=== PATIENT | male | born 1965 | race Caucasian/White ===

== ENCOUNTER 2021-12-24 08:24 | Inpatient (IN) | payer OTHER, MEDICAID ==
[~2021-12-24] VITALS: Ht 170.2 cm; Wt 49.0 kg
[2021-12-24 08:24] VITALS: BP_SYST 139
[~2021-12-24 08:24] MED LIST: ACET325T PO; ALBMDI INH; CEPH-548 PO; HYDR-3917 PO; LACT10SO6 PO; ONDA4TAB55 PO; POLY17PO4 PO; ROBAC PO; SENN8.6T19 PO; TRAM50TA2 PO; TRAZ-250 PO
[2021-12-24] MEDS ORDERED: ONDANSETRON HCL 4 MG/2 ML VIAL IVP ONE (09:00)
[2021-12-24] MEDS ORDERED: PANTOPRAZOLE SODIUM 80 MG in NS 100 ML IV ONE (09:00)
[2021-12-24] MEDS ORDERED: PANTOPRAZOLE SODIUM 40 MG/VIAL (PROTONIX) ONE (09:29)
[2021-12-24] MEDS ORDERED: ONDANSETRON HCL 4 MG/2 ML VIAL ONE (09:29)
[2021-12-24 09:34] LABS: BASOPHILS # (AUTO) 0.1 K/uL (0.0-0.2); BASOPHILS % (AUTO) 0.6 % (0.0-2.0); EOSINOPHILS % (AUTO) 0.5 % (0.0-4.0); HEMATOCRIT 37.7 % (36-54); HEMOGLOBIN 11.9 g/dL (14.0-18.0); LYMPHOCYTES # (AUTO) 0.7 K/uL (1.0-5.5); LYMPHOCYTES % (AUTO) 8.3 % (20.5-51.5); MEAN CORPUSCULAR HEMOGLOBIN 27 pg (27-31); MEAN CORPUSCULAR HGB CONC 32 % (32-36); MEAN CORPUSCULAR VOLUME 84 fL (79.0-98.0); MONOCYTES # (AUTO) 0.4 K/uL (0.0-1.0); MONOCYTES % (AUTO) 4.8 % (1.7-9.3); NEUTROPHILS # (AUTO) 6.9 K/uL (1.8-7.7); NEUTROPHILS % (AUTO) 85.8 % (40.0-70.0); PLATELET COUNT (AUTO) 350 K/uL (130-430); RED BLOOD CELL COUNT(AUTO) 4.49 MIL/uL (4.2-6.2); RED CELL DISTRIBUTION WIDTH 17.1 % (9.0-15.0)
[2021-12-24 09:51] LABS: CALCIUM 8.6 mg/dL (8.4-11.0); CREATININE 0.94 mg/dL (0.55-1.30); POTASSIUM 4.1 mmol/L (3.5-5.1)
[2021-12-24 09:54] LABS: PROTHROMBIN TIME 10.5 SECS (9.5-12.5)
[2021-12-24 09:55] LABS: ALBUMIN 3.2 g/dL (3.4-4.8); TOTAL BILIRUBIN 0.4 mg/dL (0.0-1.0)
[2021-12-24 09:59] LABS: BILIRUBIN,URINE NEGATIVE (NEGATIVE); BLOOD, URINE 3+ (NEGATIVE); CLARITY/URINE TURBID (CLEAR); COLOR,URINE YELLOW (YELLOW); GLUCOSE,URINE NEGATIVE (NEGATIVE); KETONES,URINE NEGATIVE (NEGATIVE); LEUKOCYTE ESTERASE ,URINE 3+ (NEGATIVE); NITRITE, URINE NEGATIVE (NEGATIVE); PH,URINE 6.5 (5.0-8.0); PROTEIN URINE 2+ (NEGATIVE); UROBILINOGEN,URINE 0.2 (0.2-1.0)
[2021-12-24 10:17] LABS: BACTERIA,URINE MODERATE /HPF (None Seen); WBC,URINE >100 /HPF (0-3)
[2021-12-24] MEDS ORDERED: PIPERACILLIN/TAZO 3.375 GM in NS 50 ML IV ONE (10:45)
[2021-12-24] MEDS ORDERED: DOCU-144 PO (11:15)
[2021-12-24] MEDS ORDERED: BISA10SU61 RC (11:15)
[2021-12-24] MEDS ORDERED: FLEETMO RC (11:15)
[2021-12-24] MEDS ORDERED: METO25TA6 PO (11:15)
[2021-12-24] MEDS ORDERED: BISACODYL 10 MG/SUPPOSITORY RC ONE (13:45)
[2021-12-24 14:00] VITALS: BP_SYST 125
[2021-12-24] MEDS: D5NS 1,000 ML IV SCH (15:01)
[2021-12-24 15:12] VITALS: BP_SYST 125
[2021-12-24 16:00] VITALS: BP_SYST 128
[2021-12-24 20:00] VITALS: BP_SYST 105
[2021-12-24] MEDS: PANTOPRAZOLE SODIUM 40 MG/VIAL (PROTONIX) IVP SCH (20:43)
[2021-12-24] MEDS ORDERED: PANTOPRAZOLE SODIUM 40 MG in NS 100 ML IV SCH (21:00)
[2021-12-24] MEDS ORDERED: cefTRIAXone 1 GM IVPB PREMIX 50 ML IV ONE (21:52)
[2021-12-24] MEDS: cefTRIAXone 1 GM in D5W 50 ML IV SCH (22:12)
[2021-12-24] MEDS: MORPHINE 2 MG/ML INJ. SYRINGE IVP PRN (22:14)
[2021-12-25] VITALS: BP_SYST 133
[2021-12-25] MEDS: D5NS 1,000 ML IV SCH ×3 (02:30→23:45)
[2021-12-25] MEDS: MORPHINE 2 MG/ML INJ. SYRINGE IVP PRN ×3 (03:04→20:38)
[2021-12-25 07:23] LABS: CALCIUM 8.5 mg/dL (8.4-11.0); CREATININE 0.92 mg/dL (0.55-1.30); POTASSIUM 3.8 mmol/L (3.5-5.1)
[2021-12-25 07:28] LABS: BASOPHILS # (AUTO) 0.1 K/uL (0.0-0.2); BASOPHILS % (AUTO) 1.1 % (0.0-2.0); EOSINOPHILS # (AUTO) 0.3 K/uL (0.0-0.4); EOSINOPHILS % (AUTO) 4.8 % (0.0-4.0); HEMATOCRIT 32.2 % (36-54); HEMOGLOBIN 10.2 g/dL (14.0-18.0); LYMPHOCYTES % (AUTO) 14.9 % (20.5-51.5); MEAN CORPUSCULAR HEMOGLOBIN 27 pg (27-31); MEAN CORPUSCULAR HGB CONC 32 % (32-36); MEAN CORPUSCULAR VOLUME 84 fL (79.0-98.0); MONOCYTES # (AUTO) 0.5 K/uL (0.0-1.0); MONOCYTES % (AUTO) 7.8 % (1.7-9.3); NEUTROPHILS # (AUTO) 4.6 K/uL (1.8-7.7); NEUTROPHILS % (AUTO) 71.4 % (40.0-70.0); PLATELET COUNT (AUTO) 319 K/uL (130-430); RED BLOOD CELL COUNT(AUTO) 3.83 MIL/uL (4.2-6.2); RED CELL DISTRIBUTION WIDTH 17.2 % (9.0-15.0); WHITE BLOOD COUNT (AUTO) 6.4 K/uL (4.8-10.8)
[2021-12-25 08:16] VITALS: BP_SYST 140
[2021-12-25] MEDS: PANTOPRAZOLE SODIUM 40 MG/VIAL (PROTONIX) IVP SCH ×2 (08:37→20:28)
[2021-12-25] MEDS: METOPROLOL TARTRATE 25 MG TABLET PO SCH ×2 (08:38→20:29)
[2021-12-25] MEDS ORDERED: POLYETHYLENE GLYCOL 3350, 17 GM/ POWD.PACK PO SCH (09:00)
[2021-12-25] MEDS ORDERED: MAGNESIUM CITRATE 300 ML ORAL SOLUTION PO ONE (10:15)
[2021-12-25 12:54] VITALS: BP_SYST 124
[2021-12-25] MEDS: POLYETHYLENE GLYCOL 3350, 17 GM/ POWD.PACK PO SCH ×2 (14:01→20:29)
[2021-12-25 17:25] VITALS: BP_SYST 126
[2021-12-25] MEDS: SENNOSIDES/DOCUSATE SODIUM 1 TAB TABLET(SENOKOT-S) PO SCH (20:29)
[2021-12-25] MEDS: cefTRIAXone 1 GM in D5W 50 ML IV SCH (21:16)
[2021-12-26 00:36] VITALS: BP_SYST 107
[2021-12-26] MEDS: POLYETHYLENE GLYCOL 3350, 17 GM/ POWD.PACK PO SCH ×4 (05:28→21:00)
[2021-12-26 07:48] VITALS: BP_SYST 126
[2021-12-26 08:22] LABS: BASOPHILS # (AUTO) 0.1 K/uL (0.0-0.2); BASOPHILS % (AUTO) 1.2 % (0.0-2.0); EOSINOPHILS # (AUTO) 0.4 K/uL (0.0-0.4); EOSINOPHILS % (AUTO) 5.2 % (0.0-4.0); HEMATOCRIT 35.1 % (36-54); HEMOGLOBIN 10.9 g/dL (14.0-18.0); LYMPHOCYTES # (AUTO) 1.1 K/uL (1.0-5.5); LYMPHOCYTES % (AUTO) 14.6 % (20.5-51.5); MEAN CORPUSCULAR HEMOGLOBIN 27 pg (27-31); MEAN CORPUSCULAR HGB CONC 31 % (32-36); MEAN CORPUSCULAR VOLUME 85 fL (79.0-98.0); MONOCYTES # (AUTO) 0.4 K/uL (0.0-1.0); NEUTROPHILS # (AUTO) 5.3 K/uL (1.8-7.7); PLATELET COUNT (AUTO) 354 K/uL (130-430); RED BLOOD CELL COUNT(AUTO) 4.12 MIL/uL (4.2-6.2); WHITE BLOOD COUNT (AUTO) 7.3 K/uL (4.8-10.8)
[2021-12-26 08:43] LABS: CALCIUM 8.8 mg/dL (8.4-11.0); CREATININE 1.01 mg/dL (0.55-1.30); POTASSIUM 4.1 mmol/L (3.5-5.1)
[2021-12-26] MEDS: PANTOPRAZOLE SODIUM 40 MG/VIAL (PROTONIX) IVP SCH ×2 (09:00→21:00)
[2021-12-26] MEDS: traMADol HCL HCL 50 MG TABLET (ULTRAM) PO PRN ×3 (09:18→21:45)
[2021-12-26] MEDS: METOPROLOL TARTRATE 25 MG TABLET PO SCH ×2 (09:19→21:45)
[2021-12-26 12:00] VITALS: BP_SYST 116
[2021-12-26] MEDS: MAGNESIUM CITRATE 300 ML ORAL SOLUTION PO SCH (14:15)
[2021-12-26 16:00] VITALS: BP_SYST 120
[2021-12-26] MEDS ORDERED: MENTHOL/ZINC OXIDE 113 GM OINT. TP PRN (19:15)
[2021-12-26] MEDS ORDERED: ERTAPENEM SODIUM 1 GM in NS 50 ML IV SCH (21:00)
[2021-12-26] MEDS: BISACODYL 5 MG TABLET.DR (DULCOLAX) PO SCH (21:00)
[2021-12-26] MEDS: SENNOSIDES/DOCUSATE SODIUM 1 TAB TABLET(SENOKOT-S) PO SCH (21:00)
[2021-12-27 00:29] VITALS: BP_SYST 122
[2021-12-27] MEDS: POLYETHYLENE GLYCOL 3350, 17 GM/ POWD.PACK PO SCH ×4 (03:00→21:19)
[2021-12-27 04:00] VITALS: BP_SYST 132
[2021-12-27] MEDS: PANTOPRAZOLE SODIUM 40 MG/VIAL (PROTONIX) IVP SCH ×2 (09:00→21:19)
[2021-12-27] MEDS: MAGNESIUM CITRATE 300 ML ORAL SOLUTION PO SCH (09:00)
[2021-12-27] MEDS: METOPROLOL TARTRATE 25 MG TABLET PO SCH ×2 (09:00→21:20)
[2021-12-27] MEDS: BISACODYL 5 MG TABLET.DR (DULCOLAX) PO SCH ×2 (09:00→21:20)
[2021-12-27] MEDS: ERTAPENEM SODIUM 1 GM in NS 50 ML IV SCH (11:03)
[2021-12-27 12:02] VITALS: BP_SYST 132
[2021-12-27 13:13] VITALS: BP_SYST 134
[2021-12-27 16:09] VITALS: BP_SYST 103
[2021-12-27 20:00] VITALS: BP_SYST 122
[2021-12-27] MEDS: SENNOSIDES/DOCUSATE SODIUM 1 TAB TABLET(SENOKOT-S) PO SCH (21:19)
[2021-12-28 02:04] VITALS: BP_SYST 99
[2021-12-28] MEDS: D5NS 1,000 ML IV SCH ×2 (02:30→14:28)
[2021-12-28] MEDS: MAGNESIUM CITRATE 300 ML ORAL SOLUTION PO SCH (09:00)
[2021-12-28] MEDS: POLYETHYLENE GLYCOL 3350, 17 GM/ POWD.PACK PO SCH ×2 (09:00→22:08)
[2021-12-28] MEDS: BISACODYL 5 MG TABLET.DR (DULCOLAX) PO SCH ×2 (09:00→22:09)
[2021-12-28] MEDS: PANTOPRAZOLE SODIUM 40 MG/VIAL (PROTONIX) IVP SCH ×2 (10:27→22:09)
[2021-12-28] MEDS: METOPROLOL TARTRATE 25 MG TABLET PO SCH ×2 (10:29→22:10)
[2021-12-28] MEDS: ERTAPENEM SODIUM 1 GM in NS 50 ML IV SCH (11:00)
[2021-12-28] MEDS ORDERED: GOLYTELY / COLYTE SOLUTION 4 LITERS PO ONE (14:00)
[2021-12-28] MEDS: MORPHINE 2 MG/ML INJ. SYRINGE IVP PRN ×2 (14:26→21:02)
[2021-12-28 16:23] VITALS: BP_SYST 134
[2021-12-28 20:30] VITALS: BP_SYST 119
[2021-12-28] MEDS: SENNOSIDES/DOCUSATE SODIUM 1 TAB TABLET(SENOKOT-S) PO SCH (22:09)
[2021-12-29 02:11] VITALS: BP_SYST 129
[2021-12-29] MEDS: D5NS 1,000 ML IV SCH (02:39)
[2021-12-29] MEDS: PANTOPRAZOLE SODIUM 40 MG/VIAL (PROTONIX) IVP SCH (09:43)
[2021-12-29] MEDS: BISACODYL 5 MG TABLET.DR (DULCOLAX) PO SCH (09:44)
[2021-12-29] MEDS: traMADol HCL HCL 50 MG TABLET (ULTRAM) PO PRN (09:44)
[2021-12-29] MEDS: POLYETHYLENE GLYCOL 3350, 17 GM/ POWD.PACK PO SCH (09:44)
[2021-12-29] MEDS: MAGNESIUM CITRATE 300 ML ORAL SOLUTION PO SCH (09:45)
[2021-12-29] MEDS: METOPROLOL TARTRATE 25 MG TABLET PO SCH (09:49)
[2021-12-29 11:02] VITALS: BP_SYST 119
[2021-12-29 11:23] VITALS: BP_SYST 119
[2021-12-29] MEDS: ERTAPENEM SODIUM 1 GM in NS 50 ML IV SCH (12:26)
[2021-12-29 12:40] VITALS: BP_SYST 125
== END 2021-12-29 15:15 | DRG 377 ==
LOC: SED 08:24 → STU 10:53 → SMU 12-26 16:09
PROVIDERS: ADMIT General Practice; ATTEND General Practice
DX: K92.2 Gastrointestinal hemorrhage, unspecified (principal); R53.2 Functional quadriplegia; N39.0 Urinary tract infection, site not specified; E44.1 Mild protein-calorie malnutrition; Z68.1 Body mass index [BMI] 19.9 or less, adult; Z16.12 Extended spectrum beta lactamase (ESBL) resistance; E86.0 Dehydration; Z20.822 Contact with and (suspected) exposure to COVID-19; B96.20 Unspecified Escherichia coli [E. coli] as the cause of diseases classified elsewhere; J45.909 Unspecified asthma, uncomplicated; K56.41 Fecal impaction; G80.9 Cerebral palsy, unspecified; F79 Unspecified intellectual disabilities; D64.9 Anemia, unspecified; Z88.1 Allergy status to other antibiotic agents; Z88.8 Allergy status to other drugs, medicaments and biological substances; Z79.899 Other long term (current) drug therapy; Z90.49 Acquired absence of other specified parts of digestive tract; Z87.440 Personal history of urinary (tract) infections
CPT/HCPCS: 36415; 71045; 74018; 80048; 80053; 81000; 83690; 84443; 85025; 85610-TC; 85730-TC; 86886; 86900; 86901; 87081; 87086; 93005; 96365; 96367; 96375; 99285; C9113; G0378; J0696; J1335; J2270; J2405; J2543; J7060

== ENCOUNTER 2022-01-19 18:30 | Inpatient (IN) | payer OTHER, MEDICAID ==
[2022-01-18] MEDS: D5/0.45 NS 1,000 ML IV SCH (23:45)
[~2022-01-19] VITALS: Ht 170.2 cm; Wt 47.7 kg
[~2022-01-19 18:30] MED LIST changes: +BISA10SU61 RC; -CEPH-548 PO; +DOCU-144 PO; +FLEETMO RC; -HYDR-3917 PO; +METO25TA6 PO; -ROBAC PO
[2022-01-19 18:34] VITALS: BP_SYST 124
--- NOTE | 2022-01-19 18:37 | NUR ---
Patient to ER bed 5 to gown for evaluation. Side rails up. Report given to Navarro GUAJARDO.
--- NOTE | 2022-01-19 19:02 | NUR ---
Patient is A&Ox4 BIB ambulance c/o intermittent nausea, back pain and states he has a leaking urostomy tube.
--- NOTE | 2022-01-19 19:06 | NUR ---
LAB AT THE BEDSIDE FOR BLOOD DRAW
--- NOTE | 2022-01-19 19:20 | NUR ---
Report given to BENNETT Alexander. Patient resting in bed.
[2022-01-19 19:21] LABS: BASOPHILS # (AUTO) 0.1 K/uL (0.0-0.2); BASOPHILS % (AUTO) 0.8 % (0.0-2.0); EOSINOPHILS # (AUTO) 0.5 K/uL (0.0-0.4); EOSINOPHILS % (AUTO) 5.7 % (0.0-4.0); HEMATOCRIT 34.8 % (36-54); HEMOGLOBIN 11.1 g/dL (14.0-18.0); LYMPHOCYTES # (AUTO) 0.9 K/uL (1.0-5.5); LYMPHOCYTES % (AUTO) 11.3 % (20.5-51.5); MEAN CORPUSCULAR HEMOGLOBIN 26 pg (27-31); MEAN CORPUSCULAR HGB CONC 32 % (32-36); MEAN CORPUSCULAR VOLUME 81 fL (79.0-98.0); MONOCYTES # (AUTO) 0.7 K/uL (0.0-1.0); MONOCYTES % (AUTO) 7.9 % (1.7-9.3); NEUTROPHILS # (AUTO) 6.3 K/uL (1.8-7.7); NEUTROPHILS % (AUTO) 74.3 % (40.0-70.0); PLATELET COUNT (AUTO) 382 K/uL (130-430); RED BLOOD CELL COUNT(AUTO) 4.31 MIL/uL (4.2-6.2); RED CELL DISTRIBUTION WIDTH 18.2 % (9.0-15.0); WHITE BLOOD COUNT (AUTO) 8.4 K/uL (4.8-10.8)
--- NOTE | 2022-01-19 19:59 | NUR ---
DR PANIAGUA IN ROOM FOR EXAM.
[2022-01-19 20:06] LABS: BILIRUBIN,URINE NEGATIVE (NEGATIVE); BLOOD, URINE 3+ (NEGATIVE); COLOR,URINE YELLOW (YELLOW); GLUCOSE,URINE NEGATIVE (NEGATIVE); KETONES,URINE NEGATIVE (NEGATIVE); LEUKOCYTE ESTERASE ,URINE 3+ (NEGATIVE); NITRITE, URINE POSITIVE (NEGATIVE); PH,URINE 7.5 (5.0-8.0); PROTEIN URINE 2+ (NEGATIVE); UROBILINOGEN,URINE 0.2 (0.2-1.0)
[2022-01-19 20:10] LABS: CLARITY/URINE CLOUDY (CLEAR)
[2022-01-19 20:26] LABS: BACTERIA,URINE MODERATE /HPF (None Seen); RBC,URINE 20-50 /HPF (0-3); WBC,URINE >100 /HPF (0-3)
[2022-01-19 20:27] LABS: MUCUS,URINE 1+ /LPF (None Seen)
[2022-01-19 20:55] LABS: POTASSIUM 4.3 mmol/L (3.5-5.1)
[2022-01-19 20:56] LABS: CALCIUM 8.2 mg/dL (8.4-11.0); CREATININE 1.54 mg/dL (0.55-1.30)
[2022-01-19 20:58] LABS: ALBUMIN 2.9 g/dL (3.4-4.8)
--- NOTE | 2022-01-19 21:01 | NUR ---
PT WITH EYES CLOSED, IN NAD. RESP EVEN AND UNLABORED, SFATEY PRECAUTIONS IN PLACE, WILL CONT TO MONITOR.
[2022-01-19 21:09] LABS: TOTAL BILIRUBIN 0.1 mg/dL (0.0-1.0)
[2022-01-19] MEDS ORDERED: PANTOPRAZOLE SODIUM 40 MG/VIAL (PROTONIX) IVP ONE (21:45)
[2022-01-19] MEDS ORDERED: PIPERACILLIN/TAZO 3.375 GM in NS 50 ML IV ONE (21:45)
[2022-01-19] MEDS ORDERED: PIPERACILLIN/TAZOBACTAM 3.375 GM/VIAL (ZOSYN) IV ONE ×2 (21:55→21:56)
--- NOTE | 2022-01-19 22:05 | NUR ---
Admit bed requested Patient will be admitted to care of . Admitted to TELE unit. Diagnosis RANAL FAILURE,NAUSEA,VOMITING Inpatient (Yes or No) YES Observation (Yes or No) NO Orientation concerns or request close to nursing station (Yes or No) YES Covid Status PENDING On vent or bipap NO Isolation requirements NO Needs a sitter NO From Home (Yes or if No enter name of facility) [facility] Requires Dialysis (Yes or No) NO Med Rec Completed (Yes of No) PENDING
[2022-01-19] MEDS ORDERED: NA P133E41 RC (22:29)
[2022-01-19] MEDS ORDERED: BACL10TA PO (22:29)
[2022-01-19] MEDS ORDERED: HYDR-3917 PO (22:29)
--- NOTE | 2022-01-19 22:41 | NUR ---
Patient will be admitted to care of DR JEROME. Admitted to unit. Will go to room . Belongings list completed. Complete and up to date summary report printed. SBAR report to be given at bedside with opportunity for questions.
--- NOTE | 2022-01-19 22:57 | NUR ---
ADMIT NOTE Received pt from ER to with a diagnosis of renal failure, nausea and vomiting. Received SBAR report from Cora. Admission process initiated. patient oriented to pain management, safety and call light-teach back done.
[2022-01-19 23:02] VITALS: BP_SYST 102
[2022-01-19] MEDS: D5/0.45 NS 1,000 ML IV SCH (23:24)
--- NOTE | 2022-01-20 07:20 | NUR ---
Dr. Randolph Martinez, Midline Informed Dr. Martinez, patient is a hardstick, unstable start IV and had a midline on prior visit. Received an order for Midline placement, DUYEN
[2022-01-20 08:00] VITALS: BP_SYST 119
[2022-01-20] MEDS: D5/0.45 NS 1,000 ML IV SCH ×2 (08:00→23:45)
--- NOTE | 2022-01-20 08:00 | NUR ---
OPENING NOTE Patient resting in bed, AxO x4. No sign of distress, patient complaining of abdominal pain 4/10. Patient does not have IV access at this time, midline order placed. Patient is currently NPO. Suprapubic catheter and nephrostomy tubes are patent and draining to gravity. All needs met at this time and safety checks made. Will continue to monitor.
--- NOTE | 2022-01-20 09:50 | NUR ---
PATIENT LEFT FOR PROCEDURE Patient left with transport for enteroscopy
[2022-01-20] MEDS ORDERED: MIDAZOLAM HCL 5 MG/5 ML VIAL ONE (10:21)
[2022-01-20] MEDS ORDERED: fentaNYL CITRATE/PF 100 MCG/2 ML AMP ONE (10:21)
[2022-01-20] MEDS ORDERED: BENZOCAINE 20% 0.5mL UD SPRAY MM ONE (10:28)
[2022-01-20] MEDS ORDERED: LORazepam 2 MG/ML VIAL IVP PRN (11:15)
[2022-01-20] MEDS ORDERED: NALOXONE HCL 0.4 MG/ML AMP (NARCAN) IVP PRN (11:15)
[2022-01-20] MEDS ORDERED: traMADol HCL HCL 50 MG TABLET (ULTRAM) PO PRN (11:15)
[2022-01-20] MEDS ORDERED: SODIUM PHOSPHATE,MONO-DIBASIC 133 ML ENEMA RC PRN (11:15)
[2022-01-20] MEDS ORDERED: ONDANSETRON HCL 4 MG/2 ML VIAL IVP PRN (11:15)
[2022-01-20] MEDS ORDERED: BISACODYL 10 MG/SUPPOSITORY RC PRN (11:15)
[2022-01-20] MEDS ORDERED: ACETAMINOPHEN 325 MG TABLET PO PRN (11:15)
[2022-01-20] MEDS ORDERED: ALBUTEROL SULFATE 0.083% 2.5 MG/3 ML VIAL.NEB INH PRN (11:15)
[2022-01-20] MEDS: SUCRALFATE 1 GM/10 ML UDC GT SCH ×2 (11:30→22:45)
--- NOTE | 2022-01-20 11:37 | NUR ---
CONSULT NEPHROLOGY SARAH DR BARON, ABID [phone] DR ROJAS GOLD STAMPER S/W [place] [facility]
--- NOTE | 2022-01-20 11:39 | NUR ---
CONSULT ID UTI DR VILCHIS [phone] S/W [facility]
--- NOTE | 2022-01-20 11:40 | NUR ---
CONSULT UROLOGY NEPHROSTOMY TUBE MALFUNCTION THOMAS GAMEZ [phone] S/W [facility] OFFICE
[2022-01-20 12:00] VITALS: BP_SYST 89
[2022-01-20] MEDS: PANTOPRAZOLE SODIUM 40 MG/VIAL (PROTONIX) IVP SCH ×2 (12:36→22:44)
[2022-01-20] MEDS: PIPERACILLIN/TAZO 3.375/DEX-IS 50 ML IV SCH ×3 (12:40→23:47)
[2022-01-20] MEDS: BACLOFEN 10 MG TABLET PO SCH ×2 (14:49→22:43)
--- NOTE | 2022-01-20 15:36 | NUR ---
I spoke to patient about DC plan. He voiced concerns he would like to be in agroup home and not a SNF. I left a message for Javi, social work program coordinator at [facility] [phone], letting her know his DC concerns, I asked her to call back so we could discuss the patient's wishes for discharge.
[2022-01-20 16:00] VITALS: BP_SYST 99
[2022-01-20 19:04] LABS: PHOSPHORUS 3.3 mg/dL (2.7-4.5)
--- NOTE | 2022-01-20 19:40 | NUR ---
Opening note Patient is awake, AOx4 resting in bed, resting in comfortable position. Non labored breathing on room air. IVF infusing via IV to LFA. He is watching t.v. and call light w/in reach. Bed is locked in lowest position, side rails up 3x and call light w/in reach.
[2022-01-20 20:00] VITALS: BP_SYST 115
--- NOTE | 2022-01-20 20:09 | NUR ---
CLOSING NOTE Patient in bed resting, tolerating his clear liquid diet well. Patient is emotional about his living situation; comfort measures provided. Encouraged patient to voice his concerns to the social sciences department chair on his case. Informed oncoming nurse of the patient's statements as well so that she can continue providing comfort measures. Patient's IV is clean, dry, intact and patient. Awaiting midline placement. No complaints of pain at this time. Patient denies any nausea. All needs met at this time and safety checks made. Endorsed to caustic cresylate shift superintendent nurse and answered all questions.
[2022-01-20] MEDS: traZODone HCL 50 MG TABLET (DESYREL) PO SCH (22:43)
[2022-01-20] MEDS: SENNOSIDES 8.6 MG TABLET PO SCH (22:44)
[2022-01-20] MEDS: METOPROLOL TARTRATE 25 MG TABLET PO SCH (22:44)
[2022-01-20] MEDS: DOCUSATE SODIUM 100 MG CAPSULE PO SCH (22:44)
--- NOTE | 2022-01-20 22:44 | NUR ---
Medications, Zofran Patient reporting nausea and Zofran administered; he did not / has not vomited. Scheduled meds given; he took pills whole and swallowed with water. Reviewed indication / side effects (protonix) and he verbalized understanding.
[2022-01-21] VITALS (7 sets, daily range): BP systolic 84–128
--- NOTE | 2022-01-21 00:15 | NUR ---
UA sample, patient care UA sample was collected from [facility] and sent to lab. Patient had small amount of BM, he was provided with pericare, bed bath, new gown/linens and repositioned. New dressing was applied to buttocks. IVF infusing well, no s/sx of infiltration. Safety precautions in place, wctm
[2022-01-21 03:02] LABS: CLARITY/URINE SLIGHTLY CLOUDY (CLEAR); COLOR,URINE YELLOW (YELLOW); PH,URINE 8.5 (5.0-8.0)
[2022-01-21 03:03] LABS: BILIRUBIN,URINE NEGATIVE (NEGATIVE); GLUCOSE,URINE NEGATIVE (NEGATIVE); KETONES,URINE NEGATIVE (NEGATIVE); PROTEIN URINE 3+ (NEGATIVE)
[2022-01-21 03:04] LABS: BLOOD, URINE 3+ (NEGATIVE); LEUKOCYTE ESTERASE ,URINE 3+ (NEGATIVE); NITRITE, URINE NEGATIVE (NEGATIVE)
[2022-01-21 03:05] LABS: UROBILINOGEN,URINE 0.2 (0.2-1.0)
[2022-01-21 03:17] LABS: BACTERIA,URINE MANY /HPF (None Seen); RBC,URINE 0-3 /HPF (0-3); WBC,URINE 20-50 /HPF (0-3)
--- NOTE | 2022-01-21 03:42 | NUR ---
rounds Patient awake, watching t.v, no distress. V/S taken and stable 128/55, HR 61. Safety precautions in place
[2022-01-21] MEDS: SUCRALFATE 1 GM/10 ML UDC GT SCH ×4 (06:43→21:05)
[2022-01-21] MEDS: PIPERACILLIN/TAZO 3.375/DEX-IS 50 ML IV SCH ×3 (06:43→17:48)
--- NOTE | 2022-01-21 06:50 | NUR ---
closing note Patient is awake, resting in comfortable position. Non labored breathing on room air. IVF infusing via IV to LFA. He reports nephrostomy tube is leaking - assessed and it is not leaking, gauze is dry. Did not vomit during night baker. Bed is locked in lowest position, side rails up 3x and call light w/in reach.
[2022-01-21 06:54] LABS: BASOPHILS # (AUTO) 0.1 K/uL (0.0-0.2); BASOPHILS % (AUTO) 1.2 % (0.0-2.0); EOSINOPHILS # (AUTO) 0.4 K/uL (0.0-0.4); EOSINOPHILS % (AUTO) 7.8 % (0.0-4.0); HEMATOCRIT 30.6 % (36-54); HEMOGLOBIN 9.6 g/dL (14.0-18.0); LYMPHOCYTES % (AUTO) 17.7 % (20.5-51.5); MEAN CORPUSCULAR HEMOGLOBIN 25 pg (27-31); MEAN CORPUSCULAR HGB CONC 31 % (32-36); MEAN CORPUSCULAR VOLUME 81 fL (79.0-98.0); MONOCYTES # (AUTO) 0.4 K/uL (0.0-1.0); MONOCYTES % (AUTO) 7.5 % (1.7-9.3); NEUTROPHILS # (AUTO) 3.7 K/uL (1.8-7.7); NEUTROPHILS % (AUTO) 65.8 % (40.0-70.0); PLATELET COUNT (AUTO) 305 K/uL (130-430); RED CELL DISTRIBUTION WIDTH 18.1 % (9.0-15.0)
--- NOTE | 2022-01-21 07:10 | NUR ---
OPENING NOTE Patient sitting up in bed, AxO x4. No sign of distress and denies pain at this time. IV is intact and running prescribed fluids. Nephrostomy tubes and suprapubic catheter are patent and draining to gravity. All needs met at this time and safety checks made. Will continue to monitor.
[2022-01-21 07:20] LABS: ALBUMIN 2.5 g/dL (3.4-4.8); CALCIUM 7.3 mg/dL (8.4-11.0); CREATININE 1.05 mg/dL (0.55-1.30); PHOSPHORUS 3.2 mg/dL (2.7-4.5); POTASSIUM 3.3 mmol/L (3.5-5.1); TOTAL BILIRUBIN 0.3 mg/dL (0.0-1.0)
[2022-01-21 08:26] LABS: WHITE BLOOD COUNT (AUTO) 5.6 K/uL (4.8-10.8)
[2022-01-21] MEDS: METOPROLOL TARTRATE 25 MG TABLET PO SCH ×2 (09:00→21:00)
[2022-01-21] MEDS: POLYETHYLENE GLYCOL 3350, 17 GM/ POWD.PACK PO SCH (09:00)
[2022-01-21 09:07] LABS: URINE SODIUM, RANDOM 28 mmol/L (40-220)
[2022-01-21] MEDS: BACLOFEN 10 MG TABLET PO SCH ×3 (09:14→21:05)
[2022-01-21] MEDS: DOCUSATE SODIUM 100 MG CAPSULE PO SCH ×2 (09:14→21:05)
[2022-01-21] MEDS: LACTULOSE 20 GM/30 ML UDC PO SCH ×2 (09:14→21:05)
[2022-01-21] MEDS: PANTOPRAZOLE SODIUM 40 MG/VIAL (PROTONIX) IVP SCH (09:17)
[2022-01-21 09:25] LABS: ERYTHROCYTE SEDIMENTATION RATE 35 MM/HR (0-15)
[2022-01-21 09:37] LABS: C-REACTIVE PROTEIN QUANT 2.2 mg/dL (0-0.5)
[2022-01-21] MEDS ORDERED: POTASSIUM CHLORIDE 20 MEQ TAB.PRT.SR PO ONE (10:30)
--- NOTE | 2022-01-21 10:41 | NUR ---
[facility] LAB RESULT Received result from lab, patient is positive for MRSA of the nares.
--- NOTE | 2022-01-21 10:49 | NUR ---
PATIENT MOVED TO ROOM 134A Patient moved and placed on contact precautions for MRSA of the nares.
--- NOTE | 2022-01-21 13:58 | NUR ---
Dietitian Recommendations * Advance diet as medically appropriate to Soft, Ensure Enlive TID * ONS yields 1050 kcals/day, 60 g protein/day Please refer to Nutrition Assessment for details. Addendum: 01/21/22 at [address] Amended: Links added.
[2022-01-21] MEDS: D5/0.45 NS 1,000 ML IV SCH ×2 (14:00→20:58)
--- NOTE | 2022-01-21 15:00 | NUR ---
ROUNDS Patient in bed resting, no sign of distress and patient denies pain. Patient denies any nausea and has not vomited during the day shift. A photo was taken and placed in the chart of the patient's sacrum per wound documentation protocol. Patient's nephrostomy tubes were clean and dry, no drainage at this time. The patient's suprapubic catheter has scant drainage and dressing was changed. All needs met at this time and safety checks made. Will continue to monitor.
--- NOTE | 2022-01-21 15:32 | NUR ---
Spoke w/ Bonita Garcia from [facility]- She stated the [facility] has been working w/ Mr. Lange to find him the independent he is requesting. His medical condition, the patient's preferences and financial restrictions have all been factors is finding him housing- the [facility] will continue to work with the patient to find him the housing he would like.
--- NOTE | 2022-01-21 18:21 | NUR ---
CLOSING NOTE Patient in bed resting, no complaints of pain or nausea. Patient has been tolerating his diet well. IV is intact and patent, running prescribed fluids. Suprapubic catheter and nephrostomy tubes are patent and draining to gravity. All needs are met at this time and safety checks made. Will endorse to department store salesperson nurse.
--- NOTE | 2022-01-21 19:15 | NUR ---
change of shift.pt.presents isolation status;contact;mrsa nares.pt.presents hx;cerebral palsy.pt.presents general rom compromised weakness.pt.activity status bedbound.pt.presents nephrostomy tubes;bilateral;intact.pt.presents supra-pubic cath intact general status stable.respiratory status stable;unlabored@room air.call light/telephone palced w/in access of the pt.
--- NOTE | 2022-01-21 20:00 | NUR ---
pt.assessed.v/s assessed values wnl.iv access intact iv fluids infusing.no c/o pain,nausea.nephrostomy tubes intact, supra-pubi cath intact.pt.assessed for cleanliness.pt.repositioned.call light/telephone placed w/in access of the pt.
--- NOTE | 2022-01-21 21:00 | NUR ---
2100p medications administered.pt.capable to ingest the po medications w/out difficulty.no c/o pain,nausea.call light/telephone w/in access of the pt.
[2022-01-21] MEDS: traZODone HCL 50 MG TABLET (DESYREL) PO SCH (21:05)
[2022-01-21] MEDS: PANTOPRAZOLE SODIUM 40 MG TAB PO SCH (21:05)
[2022-01-21] MEDS: SENNOSIDES 8.6 MG TABLET PO SCH (21:05)
--- NOTE | 2022-01-21 22:00 | NUR ---
pt.assessed.pt.presents quiescent affect;calm,resting.iv access intact iv fluids infusing.nephrostomy tubes intact,supra-pubic cath intact.no c/o pain,nausea.pt.requested jello.provided x2.pt.assessed for cleanliness.pt.repositioned.call light/telephone placed w/in access of the pt.
--- NOTE | 2022-01-22 | NUR ---
pt.assessed.v/s assessed values wnl.no c/o pain,nausea.mid-line utilized.iv fluids transferred to rt.side.pt.assessed for cleanliness. pt.repositioned.diet status converted to npo;2/t surgery in am.call light/telephone w/in access of the pt.nephrostomy tubes intact supra-pubic cath intact.
[2022-01-22] MEDS: PIPERACILLIN/TAZO 3.375/DEX-IS 50 ML IV SCH ×4 (00:24→17:15)
[2022-01-22 00:54] VITALS: BP_SYST 114
--- NOTE | 2022-01-22 02:00 | NUR ---
pt.assessed.pt.requested medication;pain.i have administered norco:;5/325mg po.to assessed the efficacy of the pain medication per pain mgx PROTOCOL.i have attended to the nephrostomy tubes,supra-pubic cath attended to.scant volume.pt.assessed for cleanlniess.pt.repositioned.call light/telephone placed w/in access of the pt.
[2022-01-22] MEDS: HYDROcodone/ACETAMIN 5-325 MG TAB (NORCO/ VICODIN) PO PRN ×2 (02:18→22:57)
--- NOTE | 2022-01-22 04:00 | NUR ---
PT.ASSESSED.MID-LINE INTACT IV FLUIDS INFUSING.NEPHROSTOMY TUBES,SUPRA-PUBIC CATH INTACT.PER FLACC PAIN MGX PT.ABSENTR FACIAL GRIMACES/BODY POSTURING.PT.ASSESSED FOR CLEANLINESS.PT.REPOSITIONED.CALL LIGHT/TELEPHONE PLACED W/IN ACCESS OF THE PT.
[2022-01-22] MEDS: SUCRALFATE 1 GM/10 ML UDC GT SCH ×4 (05:02→22:49)
--- NOTE | 2022-01-22 06:14 | NUR ---
pt.assessed.nephrostomy tubes intact.supra-pubic cath intact.no c/o pain,nausea.pt.repositioned.call light/telephone placed w/in access of the pt.
[2022-01-22 06:25] LABS: BASOPHILS # (AUTO) 0.1 K/uL (0.0-0.2); BASOPHILS % (AUTO) 0.9 % (0.0-2.0); EOSINOPHILS # (AUTO) 0.5 K/uL (0.0-0.4); EOSINOPHILS % (AUTO) 7.9 % (0.0-4.0); HEMATOCRIT 32.6 % (36-54); HEMOGLOBIN 10.2 g/dL (14.0-18.0); LYMPHOCYTES # (AUTO) 0.9 K/uL (1.0-5.5); LYMPHOCYTES % (AUTO) 14.9 % (20.5-51.5); MEAN CORPUSCULAR HEMOGLOBIN 26 pg (27-31); MEAN CORPUSCULAR HGB CONC 31 % (32-36); MEAN CORPUSCULAR VOLUME 82 fL (79.0-98.0); MONOCYTES # (AUTO) 0.5 K/uL (0.0-1.0); MONOCYTES % (AUTO) 7.2 % (1.7-9.3); NEUTROPHILS # (AUTO) 4.4 K/uL (1.8-7.7); NEUTROPHILS % (AUTO) 69.1 % (40.0-70.0); PLATELET COUNT (AUTO) 298 K/uL (130-430); RED BLOOD CELL COUNT(AUTO) 3.99 MIL/uL (4.2-6.2); WHITE BLOOD COUNT (AUTO) 6.3 K/uL (4.8-10.8)
[2022-01-22 06:38] LABS: CREATININE 1.14 mg/dL (0.55-1.30); PHOSPHORUS 2.8 mg/dL (2.7-4.5); POTASSIUM 4.1 mmol/L (3.5-5.1)
--- NOTE | 2022-01-22 07:30 | NUR ---
OPENING NOTES: PATIENT RESTING IN BED. BREATHING EVEN AND NON LABORED TO RA. SUPRAPUBIC CATHETER AND BILATERAL NEPHROSTOMY IN PLACED AND DRAINING BY GRAVITY. MIDLINE IN PLACED AND INFUSING WELL. FALL AND SAFETY MEASURES REINFORCED. CALL LIGHT WITHIN REACH.
[2022-01-22 07:47] VITALS: BP_SYST 107
[2022-01-22 08:10] LABS: C-REACTIVE PROTEIN QUANT 2.1 mg/dL (0-0.5)
--- NOTE | 2022-01-22 08:25 | NUR ---
CONSULTATION PAGED/CALLED Reason for Consultation: [] pcnt exchange? Person Who was Notified: [] DR JEFFERY Consulting Physician: [] Luiz GAMEZ Pollution Control Technician Specialty: [] UROLOGIST Ordering Physician: [] DR FROST
[2022-01-22] MEDS: LACTULOSE 20 GM/30 ML UDC PO SCH ×2 (09:00→22:47)
[2022-01-22] MEDS: POLYETHYLENE GLYCOL 3350, 17 GM/ POWD.PACK PO SCH (09:00)
[2022-01-22 09:18] LABS: ERYTHROCYTE SEDIMENTATION RATE 35 MM/HR (0-15)
[2022-01-22] MEDS: PANTOPRAZOLE SODIUM 40 MG TAB PO SCH ×2 (09:20→22:48)
[2022-01-22] MEDS: DOCUSATE SODIUM 100 MG CAPSULE PO SCH ×2 (09:20→22:47)
[2022-01-22] MEDS: BACLOFEN 10 MG TABLET PO SCH ×3 (09:22→22:49)
[2022-01-22] MEDS: METOPROLOL TARTRATE 25 MG TABLET PO SCH ×2 (09:22→22:49)
--- NOTE | 2022-01-22 09:30 | NUR ---
RM Addendum: 01/22/22 at 1057 by Humaira Bloom RN WRONG ENTRY
--- NOTE | 2022-01-22 09:30 | NUR ---
RN NOTES/ WOUND CARE AND INCONTINENT CARE: WOUND CARE AND INCONTINENT CARE DONE. NO S/S OF ACUTE DISTRESS NOTED. CALL LIGHT WITHIN REACH. Addendum: 01/22/22 at 1323 by Humaira Bloom RN BILATERAL NEPHROSTOMY IN PLACED. NO LEAKAGE NOTED.
[2022-01-22 11:33] VITALS: BP_SYST 111
[2022-01-22] MEDS: D5/0.45 NS 1,000 ML IV SCH (12:11)
--- NOTE | 2022-01-22 15:45 | NUR ---
RN NOTES/ NO LEAKAGE NOTED ON BILATERAL NEPHROSTOMY: PATIENT RESTING IN BED. BILATERAL NEPHROSTOMY IN PLACED AND NO LEAKAGE NOTED. REPOSITIONED PATIENT. CALL LIGHT WITHIN REACH.
[2022-01-22 15:56] VITALS: BP_SYST 90
--- NOTE | 2022-01-22 19:15 | NUR ---
CLOSING NOTES: PATIENT RESTING IN BED. NO S/S OF ACUTE DISTRESS NOTED. NEEDS MET THROUGHOUT SHIFT. ENDORSED TO FLORICULTURE TEACHER RN.
--- NOTE | 2022-01-22 20:39 | NUR ---
PHONED PAGED DR Randolph WHITTINGTON D/T URINE CULTURE POSITIVE E COLI .
--- NOTE | 2022-01-22 20:55 | NUR ---
DR Randolph JEROME UPDATED & AWARE OF POSITIVE URINE CULTURE , E COLI MDRO ESBL .
[2022-01-22 21:00] VITALS: BP_SYST 93
[2022-01-22] MEDS: SENNOSIDES 8.6 MG TABLET PO SCH (22:47)
[2022-01-22] MEDS: traZODone HCL 50 MG TABLET (DESYREL) PO SCH (22:48)
[2022-01-22] MEDS: MUPIROCIN 2% TOPICAL OINTMENT 22 GM NS SCH (22:50)
[2022-01-23 01:07] VITALS: BP_SYST 81
--- NOTE | 2022-01-23 03:00 | NUR ---
NORCO PO GIVEN FOR ACUTE PAIN GENERAL , & HELPFUL PER PATIENT .
[2022-01-23] MEDS: PIPERACILLIN/TAZO 3.375/DEX-IS 50 ML IV SCH ×4 (03:03→17:46)
[2022-01-23 06:19] LABS: ALBUMIN 2.3 g/dL (3.4-4.8); CALCIUM 7.1 mg/dL (8.4-11.0); CREATININE 1.53 mg/dL (0.55-1.30); PHOSPHORUS 2.5 mg/dL (2.7-4.5); POTASSIUM 3.7 mmol/L (3.5-5.1); TOTAL BILIRUBIN 0.1 mg/dL (0.0-1.0)
[2022-01-23] MEDS: SUCRALFATE 1 GM/10 ML UDC GT SCH ×4 (06:43→22:46)
[2022-01-23 07:43] LABS: BASOPHILS % (AUTO) 0.9 % (0.0-2.0); EOSINOPHILS # (AUTO) 0.4 K/uL (0.0-0.4); HEMOGLOBIN 9.8 g/dL (14.0-18.0); LYMPHOCYTES % (AUTO) 19.1 % (20.5-51.5); MEAN CORPUSCULAR HEMOGLOBIN 26 pg (27-31); MEAN CORPUSCULAR HGB CONC 32 % (32-36); MEAN CORPUSCULAR VOLUME 81 fL (79.0-98.0); MONOCYTES # (AUTO) 0.5 K/uL (0.0-1.0); NEUTROPHILS # (AUTO) 3.4 K/uL (1.8-7.7); PLATELET COUNT (AUTO) 295 K/uL (130-430); RED BLOOD CELL COUNT(AUTO) 3.82 MIL/uL (4.2-6.2); RED CELL DISTRIBUTION WIDTH 18.4 % (9.0-15.0); WHITE BLOOD COUNT (AUTO) 5.4 K/uL (4.8-10.8)
[2022-01-23 08:00] VITALS: BP_SYST 113
--- NOTE | 2022-01-23 08:00 | NUR ---
OPENING NOTES: PATIENT RESTING IN BED. BREATHING EVEN AND NON LABORED TO RA. DENIES ANY DISCOMFORT AT THIS TIME. SUPRAPUBIC CATHETER AND BILATERAL NEPHROSTOMY IN PLACED AND DRAINING BY GRAVITY. MIDLINE IN PLACED AND INFUSING WELL. FALL AND SAFETY MEASURES REINFORCED. CALL LIGHT WITHIN REACH.
[2022-01-23 08:26] LABS: C-REACTIVE PROTEIN QUANT 1.6 mg/dL (0-0.5)
[2022-01-23] MEDS: LACTULOSE 20 GM/30 ML UDC PO SCH ×2 (08:41→21:00)
[2022-01-23] MEDS: BACLOFEN 10 MG TABLET PO SCH ×3 (08:41→21:00)
[2022-01-23] MEDS: DOCUSATE SODIUM 100 MG CAPSULE PO SCH ×2 (08:42→22:52)
[2022-01-23] MEDS: PANTOPRAZOLE SODIUM 40 MG TAB PO SCH ×2 (08:42→22:46)
[2022-01-23] MEDS: POLYETHYLENE GLYCOL 3350, 17 GM/ POWD.PACK PO SCH (08:42)
[2022-01-23] MEDS: MUPIROCIN 2% TOPICAL OINTMENT 22 GM NS SCH ×2 (08:42→21:00)
[2022-01-23] MEDS: METOPROLOL TARTRATE 25 MG TABLET PO SCH ×2 (08:45→22:51)
[2022-01-23] MEDS: D5/0.45 NS 1,000 ML IV SCH (09:20)
--- NOTE | 2022-01-23 10:00 | NUR ---
RN NOTES: PATIENT RESTING IN BED. NO LEAKAGE NOTED ON THE BILATERAL NEPHROSTOMY. SUPRAPUBIC CATHETER IN PLACED AND DRAINING BY GRAVITY.
--- NOTE | 2022-01-23 10:34 | NUR ---
Discharge Planning: DCP faxed pt referral to [facility] [phone] DCP to follow up. Addendum: 01/23/22 at 1534 by Skye Martinez DP DCP arrange transport with [facility] [phone] on Will Call pending ID doctor GABINO underwood order and room number.
[2022-01-23 11:39] VITALS: BP_SYST 100
[2022-01-23] MEDS: HYDROcodone/ACETAMIN 5-325 MG TAB (NORCO/ VICODIN) PO PRN (12:05)
--- NOTE | 2022-01-23 12:15 | NUR ---
RN NOTES: PATIENT RESTING IN BED. C/O BACK PAIN. PRN PAIN MEDS GIVEN. NO S/S OF ACUTE DISTRESS NOTED. FALL AND SAFETY MEASURES RENDERED. CALL LIGHT WITHIN REACH.
[2022-01-23 12:18] LABS: ERYTHROCYTE SEDIMENTATION RATE 25 MM/HR (0-15)
[2022-01-23 15:57] VITALS: BP_SYST 95
--- NOTE | 2022-01-23 18:44 | NUR ---
CLOSING NOTES: PATIENT RESTING IN BED. NO S/S OF ACUTE DISTRESS NOTED. DENIES ANY DISCOMFORT AT THIS TIME. SUPRAPUBIC CATHETER AND BILATERAL NEPHROSTOMY IN PLACED AND DRAINING BY GRAVITY. NO LEAKAGE NOTED ON NEPHROSTOMY. MIDLINE IN PLACED AND INFUSING WELL. FALL AND SAFETY MEASURES PROVIDED. CALL LIGHT WITHIN REACH. NEEDS MET THROUGHOUT SHIFT. WILL CONTINUE MONITOR UNTIL ENDORSE TO ALUMINUM SHEET CUTTER RN.
[2022-01-23] MEDS ORDERED: PIPE3.379 IV (19:09)
[2022-01-23] MEDS ORDERED: SUCR1ORA4 GT (19:09)
[2022-01-23] MEDS ORDERED: PRO40 PO (19:09)
[2022-01-23] MEDS: traZODone HCL 50 MG TABLET (DESYREL) PO SCH (21:00)
[2022-01-23] MEDS: SENNOSIDES 8.6 MG TABLET PO SCH (22:46)
[2022-01-24 00:30] VITALS: BP_SYST 96
[2022-01-24] MEDS: PIPERACILLIN/TAZO 3.375/DEX-IS 50 ML IV SCH ×3 (00:31→12:36)
[2022-01-24] MEDS: D5/0.45 NS 1,000 ML IV SCH ×2 (02:20→12:38)
[2022-01-24 04:10] VITALS: BP_SYST 109
[2022-01-24] MEDS: HYDROcodone/ACETAMIN 5-325 MG TAB (NORCO/ VICODIN) PO PRN (05:15)
[2022-01-24] MEDS: SUCRALFATE 1 GM/10 ML UDC GT SCH ×3 (06:14→16:19)
--- NOTE | 2022-01-24 06:26 | NUR ---
0515 Patient complained of nagging pain on his back. Given PRN [place] 1 tablet. VS checked and recorded. Stable. No distress but with some discomfort. Midline still intact and patent. Bilateral nephrostomy tube intact and patent draining adequate clear yellow urine. Suprapubic remains leaking. Dressing changed. Patient swallows pills well. No respiratory distress noted. Kept warm and comfortable on bed. All needs attended. Call light placed within reach. Monitored closely.
--- NOTE | 2022-01-24 07:30 | NUR ---
RECEIVED PT FROM BENNETT BLOOD. ASSUMED ALL CARE.
[2022-01-24 08:00] VITALS: BP_SYST 99
[2022-01-24 08:34] LABS: CALCIUM 7.9 mg/dL (8.4-11.0); CREATININE 1.13 mg/dL (0.55-1.30); POTASSIUM 3.7 mmol/L (3.5-5.1)
[2022-01-24] MEDS: METOPROLOL TARTRATE 25 MG TABLET PO SCH (09:00)
[2022-01-24] MEDS: BACLOFEN 10 MG TABLET PO SCH ×2 (10:00→16:19)
[2022-01-24] MEDS: POLYETHYLENE GLYCOL 3350, 17 GM/ POWD.PACK PO SCH (10:02)
[2022-01-24] MEDS: PANTOPRAZOLE SODIUM 40 MG TAB PO SCH (10:02)
[2022-01-24] MEDS: DOCUSATE SODIUM 100 MG CAPSULE PO SCH (10:02)
[2022-01-24] MEDS: LACTULOSE 20 GM/30 ML UDC PO SCH (10:02)
[2022-01-24] MEDS: MUPIROCIN 2% TOPICAL OINTMENT 22 GM NS SCH (10:03)
--- NOTE | 2022-01-24 11:09 | NUR ---
DR. JEROME MADE AWARE PT'S METROPOLOL WAS HELD DUE TO HR 57. NNOS.
--- NOTE | 2022-01-24 11:11 | NUR ---
CONFIRMED WITH DR. JEROME PT IS TO MAINTAIN MIDLINE FOR ANTIBIOTIC THERAPY IN SNF.
--- NOTE | 2022-01-24 12:30 | NUR ---
PT TO TRANSFER TO SNF, REPORT GIVEN TO BENNETT ROSARIO. PT MADE AWARE OF TRANSFER, ATTEMPTED TO CALL PT RESPRESENTATIVE TO MAKE THEM AWARE BUT NO VOICEMAIL AVAILABLE, CHARGE NURSE MADE AWARE.
[2022-01-24 12:50] VITALS: BP_SYST 113
[2022-01-24] MEDS ORDERED: NORMAL SALINE 5 ML DISP.SYRIN IVF SCH (14:00)
[2022-01-24 15:03] VITALS: BP_SYST 113
[2022-01-24 18:18] VITALS: BP_SYST 109
--- NOTE | 2022-01-24 18:52 | NUR ---
PT TRANSFERRED TO SNF, TAKEN BY [facility], REPORT GIVEN TO UJSTINE SABILLON.
== END 2022-01-24 18:25 | DRG 871 ==
LOC: SED 18:30 → STU 21:56
PROVIDERS: ADMIT Preventive Medicine Preventive Medicine/Occupational Environmental Medicine; ATTEND Preventive Medicine Preventive Medicine/Occupational Environmental Medicine
PROC: 0DB78ZX Excision of Stomach, Pylorus, Via Natural or Artificial Opening Endoscopic, Diagnostic (ICD-10-PCS; 2022-01-20)
PROC: 0DB58ZX Excision of Esophagus, Via Natural or Artificial Opening Endoscopic, Diagnostic (ICD-10-PCS; principal; 2022-01-20 10:20)
DX: A41.9 Sepsis, unspecified organism (principal); K22.11 Ulcer of esophagus with bleeding; K29.71 Gastritis, unspecified, with bleeding; N17.9 Acute kidney failure, unspecified; E87.1 Hypo-osmolality and hyponatremia; N13.6 Pyonephrosis; G82.20 Paraplegia, unspecified; E87.2 Acidosis; E83.52 Hypercalcemia; E83.39 Other disorders of phosphorus metabolism; B96.89 Other specified bacterial agents as the cause of diseases classified elsewhere; K21.9 Gastro-esophageal reflux disease without esophagitis; E88.09 Other disorders of plasma-protein metabolism, not elsewhere classified; D64.9 Anemia, unspecified; E87.6 Hypokalemia; J45.909 Unspecified asthma, uncomplicated; E83.41 Hypermagnesemia; G47.00 Insomnia, unspecified; K44.9 Diaphragmatic hernia without obstruction or gangrene; K59.00 Constipation, unspecified; N31.9 Neuromuscular dysfunction of bladder, unspecified; Z20.822 Contact with and (suspected) exposure to COVID-19; B96.20 Unspecified Escherichia coli [E. coli] as the cause of diseases classified elsewhere; B96.5 Pseudomonas (aeruginosa) (mallei) (pseudomallei) as the cause of diseases classified elsewhere; I12.9 Hypertensive chronic kidney disease with stage 1 through stage 4 chronic kidney disease, or unspecified chronic kidney disease; N18.9 Chronic kidney disease, unspecified; Z88.1 Allergy status to other antibiotic agents; Z88.8 Allergy status to other drugs, medicaments and biological substances; Z79.899 Other long term (current) drug therapy; Z86.19 Personal history of other infectious and parasitic diseases; Z87.440 Personal history of urinary (tract) infections; Z93.6 Other artificial openings of urinary tract status
CPT/HCPCS: 36415; 43239; 71045; 76376; 76700-TC; 80048; 80053; 81000; 82570; 83605; 83690; 83735; 84100; 84302; 85025; 85651-TC; 86140; 87081; 87086; 88305; 88312; 88313; 93005; 96361; 96365; 96375; 99291; C9113; G0378; J2250; J2405; J2543; J3010; J7030

== ENCOUNTER 2022-04-01 00:32 | Inpatient (IN) | payer OTHER, MEDICAID ==
[~2022-04-01] VITALS: Ht 170.2 cm; Wt 42.2 kg
[~2022-04-01 00:32] MED LIST changes: +BACL10TA PO; -FLEETMO RC; +HYDR-3917 PO; +NA P133E41 RC; +PIPE3.379 IV; +PRO40 PO; +SUCR1ORA4 GT
[2022-04-01 00:36] VITALS: BP_SYST 106
--- NOTE | 2022-04-01 01:08 | NUR ---
Placed in room 06 . Placed on cardiac rn, blood pressure machine and pulse oximeter. To gown for exam. Side rails up. Report given to BENNETT ALFARO
--- NOTE | 2022-04-01 01:31 | NUR ---
pt marlene from facility for chronic anemia. pt palced in continuous equipment monitor phototypesetting; vss. denies sob. fever chills, or n/v. iv established. 20g to lt FA. labs drawn and sent to lab. pt a/a/ox4. no adn.
[2022-04-01 02:01] LABS: BASOPHILS # (AUTO) 0.1 K/uL (0.0-0.2); EOSINOPHILS # (AUTO) 0.5 K/uL (0.0-0.4); LYMPHOCYTES # (AUTO) 1.1 K/uL (1.0-5.5); MONOCYTES # (AUTO) 0.5 K/uL (0.0-1.0)
[2022-04-01 02:25] LABS: BASOPHILS % (AUTO) 1.2 % (0.0-2.0); EOSINOPHILS % (AUTO) 5.5 % (0.0-4.0); LYMPHOCYTES % (AUTO) 12.3 % (20.5-51.5); MEAN CORPUSCULAR HEMOGLOBIN 23 pg (27-31); MEAN CORPUSCULAR HGB CONC 31 % (32-36); MEAN CORPUSCULAR VOLUME 73 fL (79.0-98.0); MONOCYTES % (AUTO) 5.3 % (1.7-9.3); NEUTROPHILS % (AUTO) 75.7 % (40.0-70.0); PLATELET COUNT (AUTO) 689 K/uL (130-430); RED CELL DISTRIBUTION WIDTH 24.3 % (9.0-15.0); WHITE BLOOD COUNT (AUTO) 9.3 K/uL (4.8-10.8)
[2022-04-01 02:31] LABS: HEMATOCRIT 9.5 % (36-54)
[2022-04-01 02:33] LABS: CALCIUM 8.1 mg/dL (8.4-11.0); CREATININE 1.44 mg/dL (0.55-1.30); POTASSIUM 4.5 mmol/L (3.5-5.1)
[2022-04-01 02:47] LABS: ALBUMIN 2.3 g/dL (3.4-4.8); TOTAL BILIRUBIN 0.3 mg/dL (0.0-1.0)
--- NOTE | 2022-04-01 03:03 | NUR ---
blood consent signed by patient, and witnessed by me. MD spoke to pt regarding benefits and risks of transfusion.
[2022-04-01] MEDS: KETOROLAC TROMETHAMINE 15 MG VIAL IM ONE (05:00)
[2022-04-01] MEDS ORDERED: KETOROLAC TROMETHAMINE 60 MG/2 ML VIAL IM ONE (05:06)
--- NOTE | 2022-04-01 05:39 | NUR ---
pt infusing first unit of PRBC. no s/s of acute reaction. VSS
[2022-04-01] MEDS ORDERED: KETOROLAC TROMETHAMINE 30 MG VIAL ONE (06:50)
--- NOTE | 2022-04-01 06:50 | NUR ---
Patient will be admitted to care of []. Admitted to [] unit. Will go to room []. Belongings list completed. Complete and up to date summary report printed. SBAR report to be given at bedside with opportunity for questions.Admit bed requested Patient will be admitted to care of . Admitted to tele unit. Diagnosis anemia Inpatient (Yes or No) yes Observation (Yes or No) no Orientation concerns or request close to nursing station (Yes or No) no Covid Status pending On vent or bipap no Isolation requirements no Needs a sitter no From Home (Yes or if No enter name of facility) Requires Dialysis (Yes or No) no Med Rec Completed (Yes of No) no
[2022-04-01] MEDS ORDERED: FLEETMO RC (07:17)
--- NOTE | 2022-04-01 07:39 | NUR ---
ASSUMED CARE, PT AAOX3, WITH EYES CLOSED, EASILY AROUSABLE. RESP EVEN AND UNLABORED, ON RA @96%. DENIES ANY PAIN AT THIS TIME. NO OBVIOUS BLEEDING NOTED. RIGHT AND LEFT NEPHROSTOMY TUBES DRAINING WELL. REPOSITIONED FOR COMFORT, SAFETY PRECAUTIONS IN PLACE. WILL CONT TO MONITOR CLOSELY. PLAN OF CARE DISCUSSED WITH PT , HHE VERBALIZED UNDERSTANDING.
--- NOTE | 2022-04-01 08:47 | NUR ---
LAB STATES SECOND UNIT OF BLOOD IS NOT READY. WILL OBSERVE PT.
--- NOTE | 2022-04-01 09:28 | NUR ---
Consent signed per PT agreeing to administration of blood. Blood has been type and crossmatched. Blood sent from blood bank. Information on unit of blood checked against patient wristband at bedside by two nurses. All information matches. Patient or responsible democrat informed of potential complications associated with blood transfusion. Informed of possible transfusion reaction symptoms. Aware of need to notify nurse at once of itching, shortness of breath, flushing, feeling of impending doom, or other symptoms not previously present. Vital signs taken within 5 minutes prior to initiation of transfusion. RN will remain with patient for first 15 minutes of transfusion at which time vital signs will be re-assessed.
--- NOTE | 2022-04-01 09:42 | NUR ---
DR LYNN AT BEDSIDE FOR EVALUATION.
--- NOTE | 2022-04-01 10:01 | NUR ---
Admit bed requested Patient will be admitted to care of . Admitted to TELE unit. Diagnosis NEMIA Inpatient (Yes or No) Y Observation (Yes or No) N Orientation concerns or request close to nursing station (Yes or No) N Covid Status NEGATIVE On vent or bipap NO Isolation requirements NO Needs a sitter NO From Home (Yes or if No enter name of facility) NO-[facility] Requires Dialysis (Yes or No) NO Med Rec Completed (Yes of No) YES
--- NOTE | 2022-04-01 11:12 | NUR ---
DR JEROME HERE TO EVALUATE PT.
[2022-04-01] MEDS ORDERED: NALOXONE HCL 0.4 MG/ML AMP (NARCAN) IVP PRN (11:45)
[2022-04-01] MEDS ORDERED: ACETAMINOPHEN 325 MG TABLET PO PRN (11:45)
[2022-04-01] MEDS ORDERED: BISACODYL 10 MG/SUPPOSITORY RC PRN (11:45)
[2022-04-01] MEDS ORDERED: ONDANSETRON 4 MG ODT TAB PO PRN (11:45)
[2022-04-01] MEDS ORDERED: ALBUTEROL SULFATE 0.083% 2.5 MG/3 ML VIAL.NEB INH PRN (11:45)
[2022-04-01 11:51] VITALS: BP_SYST 110
[2022-04-01 12:20] LABS: BASOPHILS # (AUTO) 0.1 K/uL (0.0-0.2); BASOPHILS % (AUTO) 1.6 % (0.0-2.0); EOSINOPHILS # (AUTO) 0.4 K/uL (0.0-0.4); EOSINOPHILS % (AUTO) 6.7 % (0.0-4.0); LYMPHOCYTES # (AUTO) 0.9 K/uL (1.0-5.5); LYMPHOCYTES % (AUTO) 16.8 % (20.5-51.5); MEAN CORPUSCULAR HEMOGLOBIN 26 pg (27-31); MEAN CORPUSCULAR HGB CONC 34 % (32-36); MEAN CORPUSCULAR VOLUME 77 fL (79.0-98.0); MONOCYTES # (AUTO) 0.3 K/uL (0.0-1.0); MONOCYTES % (AUTO) 6.3 % (1.7-9.3); NEUTROPHILS # (AUTO) 3.8 K/uL (1.8-7.7); NEUTROPHILS % (AUTO) 68.6 % (40.0-70.0); PLATELET COUNT (AUTO) 597 K/uL (130-430); RED BLOOD CELL COUNT(AUTO) 2.54 MIL/uL (4.2-6.2); WHITE BLOOD COUNT (AUTO) 5.5 K/uL (4.8-10.8)
[2022-04-01 12:23] LABS: HEMATOCRIT 19.7 % (36-54); HEMOGLOBIN 6.6 g/dL (14.0-18.0)
--- NOTE | 2022-04-01 12:51 | NUR ---
RECEIVED PT FROM ER, ASSUMED CARE, PT IS AAOX4 WITH INTELLECTUAL DISABILITY. PT CAN COMMUNICATE NEEDS AND FOLLOW COMMANDS. TELE MONITOR IN PLACE READING NSR. RESP E/U. LUNG SOUNDS CTA, ON R/A. O2 SAT 98%. NO COUGH OR SOB NOTED. ABDOMEN SOFT, NONTENDER, NONDISTENDED. PT HAS SUPRA PUBIC CATH IN PLACE, BILATERAL NEPHROSTOMY SITE, ALL CDI, WNL. PT HAS L BUTTOCK AND RECTAL AREA EXCORIATION, AND R LOWER BUTTOCK WOUND. BOTH SITE CLEANSED WITH NS, PATTED DRY AND OPTIFOAM DRESSING PLACED, PICTURES TAKEN. MRSA OBTAINED AND TAKEN TO LAB. PT HAS BLE CONTRACTIONS. DISTAL PULSES NORMAL SKIN WARM, NO EDEMA. IV CATH TO LFA 20 G S/L. SITE WNL, DRESSING CDI. ASPIRATION PRECAUTIONS IN PLACE, CONTACT PRECAUTIONS IN PLACE FOR HX OF ESBL IN URINE AND MRSA IN BILATERAL NARES. PT DENIES PAIN AT THIS TIME.
--- NOTE | 2022-04-01 13:35 | NUR ---
TYLENOL 650MG PO PRN GIVEN ORDERED FOR BACK PAIN 12/21. PT REPOSITIONED FOR COMFORT.
--- NOTE | 2022-04-01 14:17 | NUR ---
SAGE WITH CASE MANAGEMENT MADE AWARE PT DOES NOT WANT TO RETURN TO [facility] D/T POOR TREATMENT. SHE STATED SHE WILL MAKE ANAHY AWARE.
[2022-04-01 16:00] VITALS: BP_SYST 96
--- NOTE | 2022-04-01 16:15 | NUR ---
Havsjo Delikatesser MADE AWARE PT NEEDS H AND H AT THIS TIME. SHE STATED SHE WILL DRAW IT NOW.
[2022-04-01] MEDS: SUCRALFATE 1 GM/10 ML UDC GT SCH ×2 (17:01→23:54)
[2022-04-01] MEDS: BACLOFEN 10 MG TABLET PO SCH ×2 (17:02→23:56)
--- NOTE | 2022-04-01 17:04 | NUR ---
BLOOD DRAW COMPLETED FOR H AND H AT THIS TIME.
[2022-04-01 17:25] LABS: HEMATOCRIT 18.8 % (36-54); HEMOGLOBIN 6.2 g/dL (14.0-18.0)
--- NOTE | 2022-04-01 17:31 | NUR ---
PAGED DR. JEROME TO REPORT HGB 6.2, HCT 18.8, AWAITING CALL BACK.
--- NOTE | 2022-04-01 18:02 | NUR ---
DR. JEROME PAGED A SECOND TIME TO REPORT H & H, AWAITING CALL BACK.
[2022-04-01] MEDS: D5/0.45 NS 1,000 ML IV SCH (18:44)
--- NOTE | 2022-04-01 18:44 | NUR ---
BLOOD FORM AND COPY CONSENT TAKEN TO BLOOD BANK, IVF INITIATED.
--- NOTE | 2022-04-01 19:23 | NUR ---
ENDORSED ALL CARE TO BENNETT BRUCE. ALL QUESTIONS AND CONCERNS ADDRESSED. MADE HIM AWARE PT HAS PENDING ONE UNIT PRBC TRANSFUSION, AWAITING BLOOD TO MAKE AVAILABLE BLOOD UNIT.
[2022-04-01] MEDS: HYDROcodone/ACETAMIN 5-325 MG TAB (NORCO/ VICODIN) PO PRN (20:28)
[2022-04-01] MEDS: METOPROLOL TARTRATE 25 MG TABLET PO SCH (21:00)
[2022-04-01] MEDS: traZODone HCL 50 MG TABLET (DESYREL) PO SCH (23:55)
[2022-04-01] MEDS: traMADol HCL HCL 50 MG TABLET (ULTRAM) PO PRN (23:55)
[2022-04-01] MEDS: LACTULOSE 20 GM/30 ML UDC PO SCH (23:55)
[2022-04-01] MEDS: PANTOPRAZOLE SODIUM 40 MG TAB PO SCH (23:56)
[2022-04-01] MEDS: DOCUSATE SODIUM 100 MG CAPSULE PO SCH (23:56)
[2022-04-01] MEDS: SENNOSIDES 8.6 MG TABLET PO SCH (23:59)
[2022-04-02 01:22] VITALS: BP_SYST 94
[2022-04-02] MEDS: D5/0.45 NS 1,000 ML IV SCH ×2 (04:15→13:20)
[2022-04-02] MEDS: traMADol HCL HCL 50 MG TABLET (ULTRAM) PO PRN ×4 (05:22→20:54)
[2022-04-02] MEDS: SUCRALFATE 1 GM/10 ML UDC GT SCH ×4 (07:00→20:50)
[2022-04-02 07:03] LABS: BASOPHILS # (AUTO) 0.1 K/uL (0.0-0.2); BASOPHILS % (AUTO) 1.1 % (0.0-2.0); EOSINOPHILS # (AUTO) 0.6 K/uL (0.0-0.4); EOSINOPHILS % (AUTO) 11.1 % (0.0-4.0); HEMOGLOBIN 7.2 g/dL (14.0-18.0); LYMPHOCYTES # (AUTO) 0.9 K/uL (1.0-5.5); LYMPHOCYTES % (AUTO) 15.2 % (20.5-51.5); MEAN CORPUSCULAR HEMOGLOBIN 26 pg (27-31); MEAN CORPUSCULAR HGB CONC 34 % (32-36); MEAN CORPUSCULAR VOLUME 78 fL (79.0-98.0); MONOCYTES # (AUTO) 0.3 K/uL (0.0-1.0); MONOCYTES % (AUTO) 5.5 % (1.7-9.3); NEUTROPHILS # (AUTO) 3.8 K/uL (1.8-7.7); PLATELET COUNT (AUTO) 478 K/uL (130-430); RED BLOOD CELL COUNT(AUTO) 2.73 MIL/uL (4.2-6.2); RED CELL DISTRIBUTION WIDTH 18.3 % (9.0-15.0); WHITE BLOOD COUNT (AUTO) 5.7 K/uL (4.8-10.8)
[2022-04-02 07:22] LABS: CALCIUM 7.8 mg/dL (8.4-11.0); CREATININE 1.46 mg/dL (0.55-1.30)
[2022-04-02 08:38] LABS: TOTAL IRON BIND. CAPACITY 308 ug/dL (250-450)
[2022-04-02 09:42] LABS: HEMATOCRIT 21.4 % (36-54)
[2022-04-02 10:06] VITALS: BP_SYST 114
[2022-04-02] MEDS: LACTULOSE 20 GM/30 ML UDC PO SCH ×2 (10:15→20:50)
[2022-04-02] MEDS: PANTOPRAZOLE SODIUM 40 MG TAB PO SCH ×2 (10:15→20:58)
[2022-04-02] MEDS: METOPROLOL TARTRATE 25 MG TABLET PO SCH ×2 (10:17→21:00)
[2022-04-02] MEDS: DOCUSATE SODIUM 100 MG CAPSULE PO SCH ×2 (10:18→20:53)
[2022-04-02] MEDS: BACLOFEN 10 MG TABLET PO SCH ×3 (10:18→20:55)
[2022-04-02] MEDS: POLYETHYLENE GLYCOL 3350, 17 GM/ POWD.PACK PO SCH (10:18)
[2022-04-02 12:18] VITALS: BP_SYST 127
[2022-04-02 13:07] LABS: NEUTROPHILS % (AUTO) 67.1 % (40.0-70.0)
[2022-04-02] MEDS: HYDROcodone/ACETAMIN 5-325 MG TAB (NORCO/ VICODIN) PO PRN (13:19)
--- NOTE | 2022-04-02 13:55 | NUR ---
CONSULTATION PAGED/CALLED Reason for Consultation: []Anemia Person Who was Notified: []Dari Consulting Physician: [] Dr. Germain Crnp Specialty: []Hematology Ordering Physician: []Dr. Randolph Martinez;
[2022-04-02 16:11] VITALS: BP_SYST 99
--- NOTE | 2022-04-02 16:45 | NUR ---
Patient states that the PO pain medications are not sufficient to control his chronic back pain, this was mentioned to rounding physician at bedside. Patient is otherwise AxOx4, VSS, assisted with turns Q2H. Good appetite. Bilateral nephrostomy bags are intact/draining well, suprapubic catheter intact.
[2022-04-02] MEDS ORDERED: FOLIC ACID 1 MG TABLET PO ONE (17:00)
[2022-04-02] MEDS ORDERED: BISACODYL 5 MG TABLET.DR (DULCOLAX) PO ONE (17:00)
[2022-04-02] MEDS: SOD FERRIC GLUC COMPLEX/SUC 125 MG in NS 100 ML IV SCH (18:11)
[2022-04-02 20:00] VITALS: BP_SYST 107
[2022-04-02] MEDS: traZODone HCL 50 MG TABLET (DESYREL) PO SCH (20:54)
[2022-04-02] MEDS: SENNOSIDES 8.6 MG TABLET PO SCH (20:56)
[2022-04-02] MEDS ORDERED: GOLYTELY / COLYTE SOLUTION 4 LITERS PO ONE (22:00)
[2022-04-03] MEDS: D5/0.45 NS 1,000 ML IV SCH (00:15)
[2022-04-03 01:22] VITALS: BP_SYST 132
[2022-04-03] MEDS: SUCRALFATE 1 GM/10 ML UDC GT SCH ×4 (06:58→20:16)
[2022-04-03 08:00] VITALS: BP_SYST 119
[2022-04-03] MEDS ORDERED: MEPERIDINE 100 MG INJ. 100 MG/ML VIAL ONE (08:04)
[2022-04-03] MEDS ORDERED: SIMETHICONE 40 MG/0.6 ML ML ONE (08:04)
[2022-04-03] MEDS ORDERED: MIDAZOLAM HCL 5 MG/5 ML VIAL ONE (08:05)
[2022-04-03] MEDS: METOPROLOL TARTRATE 25 MG TABLET PO SCH ×2 (09:00→22:10)
[2022-04-03] MEDS: LACTULOSE 20 GM/30 ML UDC PO SCH ×2 (09:00→20:16)
[2022-04-03] MEDS: PANTOPRAZOLE SODIUM 40 MG TAB PO SCH ×2 (09:00→20:17)
[2022-04-03] MEDS: BACLOFEN 10 MG TABLET PO SCH ×3 (09:00→20:17)
[2022-04-03] MEDS: POLYETHYLENE GLYCOL 3350, 17 GM/ POWD.PACK PO SCH (09:00)
[2022-04-03] MEDS: FOLIC ACID 1 MG TABLET PO SCH (09:00)
[2022-04-03] MEDS: DOCUSATE SODIUM 100 MG CAPSULE PO SCH ×2 (09:00→20:17)
[2022-04-03 09:06] LABS: BASOPHILS # (AUTO) 0.1 K/uL (0.0-0.2); BASOPHILS % (AUTO) 1.1 % (0.0-2.0); EOSINOPHILS # (AUTO) 0.6 K/uL (0.0-0.4); EOSINOPHILS % (AUTO) 7.1 % (0.0-4.0); HEMATOCRIT 24.5 % (36-54); HEMOGLOBIN 8.1 g/dL (14.0-18.0); LYMPHOCYTES # (AUTO) 0.8 K/uL (1.0-5.5); LYMPHOCYTES % (AUTO) 9.5 % (20.5-51.5); MEAN CORPUSCULAR HEMOGLOBIN 27 pg (27-31); MEAN CORPUSCULAR HGB CONC 33 % (32-36); MEAN CORPUSCULAR VOLUME 80 fL (79.0-98.0); MONOCYTES # (AUTO) 0.3 K/uL (0.0-1.0); MONOCYTES % (AUTO) 3.3 % (1.7-9.3); NEUTROPHILS # (AUTO) 6.7 K/uL (1.8-7.7); PLATELET COUNT (AUTO) 541 K/uL (130-430); RED BLOOD CELL COUNT(AUTO) 3.07 MIL/uL (4.2-6.2); RED CELL DISTRIBUTION WIDTH 18.7 % (9.0-15.0); WHITE BLOOD COUNT (AUTO) 8.5 K/uL (4.8-10.8)
[2022-04-03 09:47] LABS: ALBUMIN 2.2 g/dL (3.4-4.8); CALCIUM 7.6 mg/dL (8.4-11.0); CREATININE 1.24 mg/dL (0.55-1.30); POTASSIUM 4.3 mmol/L (3.5-5.1); TOTAL BILIRUBIN 0.2 mg/dL (0.0-1.0)
[2022-04-03 12:00] VITALS: BP_SYST 105
--- NOTE | 2022-04-03 13:45 | NUR ---
Dietitian Recommendations * Consider regular diet, Ensure Enlive TID (strawberry), Abundio BID (fruit punch) if/when medically appropriate LP, MS, RD Please refer to Nutrition Assessment for details. Addendum: 04/03/22 at [address] Amended: Links added.
[2022-04-03 16:00] VITALS: BP_SYST 133
[2022-04-03] MEDS ORDERED: BISACODYL 5 MG TABLET.DR (DULCOLAX) PO ONE (17:00)
[2022-04-03] MEDS: HYDROcodone/ACETAMIN 5-325 MG TAB (NORCO/ VICODIN) PO PRN (17:01)
[2022-04-03] MEDS: SOD FERRIC GLUC COMPLEX/SUC 125 MG in NS 100 ML IV SCH (17:02)
[2022-04-03] MEDS: NORMAL SALINE 5 ML DISP.SYRIN IVF SCH ×2 (17:04→22:08)
[2022-04-03] MEDS ORDERED: GOLYTELY / COLYTE SOLUTION 4 LITERS PO ONE (18:00)
--- NOTE | 2022-04-03 18:45 | NUR ---
handoff has been given to Vernon
--- NOTE | 2022-04-03 18:45 | NUR ---
urine outpu R nephrostomy 800ml urine output L nephrostomy 100ml urine output suprapubic 800ml urine output
--- NOTE | 2022-04-03 18:45 | NUR ---
Mr Lange has been assessed as indicated. He has been noted to be vey pleasant and cooperative. He has been successfully treated for pain 1x this shift. He did completed a EGD procedure this shift. He was unable to complete the colonoscopy this shift. He is now being prepared for a colonoscopy tomorrow. He is being assisted with the [employer] [facility]. bilateral nephrostomy tubed and a suprapubic catheter are functioning well. with adequate amounts of clear yellow urine bieng drained. he is presently resting quietly at this time and has no s/s of distress or discomfort
[2022-04-03 20:02] VITALS: BP_SYST 111
[2022-04-03] MEDS: traZODone HCL 50 MG TABLET (DESYREL) PO SCH (20:16)
[2022-04-03] MEDS: SENNOSIDES 8.6 MG TABLET PO SCH (20:17)
[2022-04-04 01:22] VITALS: BP_SYST 100
[2022-04-04] MEDS: NORMAL SALINE 5 ML DISP.SYRIN IVF SCH ×3 (05:09→22:03)
--- NOTE | 2022-04-04 06:32 | NUR ---
Shift Summary: patient is AAOX4. vitals are stable. upon initial assessment, informed patient plan of care for the evening that consist of finishing golytely to prep for procedure the following day. patient states hes frustrated and doesnt want to finish prep kit. educated patient on importance of finishing prep to reduce likelihood of unsuccessful procedure. patient continues to state his frustration and refuses to finish prep. patient had one large BM. [id number] implemented and skin care treatment done during shift. will endorse to oncoming nurse. call light within reach. bed set to low and locked.
[2022-04-04] MEDS: SUCRALFATE 1 GM/10 ML UDC GT SCH ×4 (07:00→22:01)
[2022-04-04 07:43] LABS: CALCIUM 8.1 mg/dL (8.4-11.0); CREATININE 1.04 mg/dL (0.55-1.30)
[2022-04-04 08:05] VITALS: BP_SYST 112
[2022-04-04] MEDS: FOLIC ACID 1 MG TABLET PO SCH (08:35)
[2022-04-04] MEDS: LACTULOSE 20 GM/30 ML UDC PO SCH ×2 (08:35→22:02)
[2022-04-04] MEDS: BACLOFEN 10 MG TABLET PO SCH ×3 (08:35→22:02)
[2022-04-04] MEDS: METOPROLOL TARTRATE 25 MG TABLET PO SCH ×2 (08:35→21:00)
[2022-04-04] MEDS: DOCUSATE SODIUM 100 MG CAPSULE PO SCH ×2 (08:35→22:03)
[2022-04-04] MEDS: POLYETHYLENE GLYCOL 3350, 17 GM/ POWD.PACK PO SCH (08:36)
[2022-04-04] MEDS: PANTOPRAZOLE SODIUM 40 MG TAB PO SCH ×2 (08:36→22:02)
[2022-04-04] MEDS: MEPERIDINE 100 MG INJ. 100 MG/ML VIAL ONE ×4 (09:34→09:45)
[2022-04-04] MEDS: MIDAZOLAM HCL 5 MG/5 ML VIAL ONE ×4 (09:34→10:06)
[2022-04-04] MEDS ORDERED: LIDOCAINE 2% JELLY UROJECT 10 ML MM ONE (09:54)
[2022-04-04 10:48] LABS: BASOPHILS # (AUTO) 0.1 K/uL (0.0-0.2); BASOPHILS % (AUTO) 0.9 % (0.0-2.0); EOSINOPHILS # (AUTO) 0.3 K/uL (0.0-0.4); EOSINOPHILS % (AUTO) 3.1 % (0.0-4.0); HEMATOCRIT 26.6 % (36-54); HEMOGLOBIN 8.5 g/dL (14.0-18.0); LYMPHOCYTES # (AUTO) 0.8 K/uL (1.0-5.5); LYMPHOCYTES % (AUTO) 8.4 % (20.5-51.5); MEAN CORPUSCULAR HEMOGLOBIN 26 pg (27-31); MEAN CORPUSCULAR HGB CONC 32 % (32-36); MEAN CORPUSCULAR VOLUME 81 fL (79.0-98.0); MONOCYTES # (AUTO) 0.6 K/uL (0.0-1.0); MONOCYTES % (AUTO) 6.3 % (1.7-9.3); NEUTROPHILS % (AUTO) 81.3 % (40.0-70.0); PLATELET COUNT (AUTO) 537 K/uL (130-430); RED BLOOD CELL COUNT(AUTO) 3.27 MIL/uL (4.2-6.2); RED CELL DISTRIBUTION WIDTH 19.3 % (9.0-15.0); WHITE BLOOD COUNT (AUTO) 9.8 K/uL (4.8-10.8)
[2022-04-04 15:52] VITALS: BP_SYST 97
[2022-04-04] MEDS: SOD FERRIC GLUC COMPLEX/SUC 125 MG in NS 100 ML IV SCH (16:52)
--- NOTE | 2022-04-04 17:32 | NUR ---
rn notes patient remains on room air, no sob noted. Colonoscopy done, diverticulitis and hemorhoids found. Currently on soft diet. nephrostomy tube working well. M/S status now. Pain under control all shift.
[2022-04-04 20:20] VITALS: BP_SYST 104
[2022-04-04] MEDS: SENNOSIDES 8.6 MG TABLET PO SCH (22:02)
[2022-04-04] MEDS: traZODone HCL 50 MG TABLET (DESYREL) PO SCH (22:02)
[2022-04-04] MEDS: traMADol HCL HCL 50 MG TABLET (ULTRAM) PO PRN (23:51)
[2022-04-05 01:06] VITALS: BP_SYST 110
[2022-04-05] MEDS: HYDROcodone/ACETAMIN 5-325 MG TAB (NORCO/ VICODIN) PO PRN (02:56)
[2022-04-05] MEDS: NORMAL SALINE 5 ML DISP.SYRIN IVF SCH ×3 (05:30→21:00)
[2022-04-05] MEDS: SUCRALFATE 1 GM/10 ML UDC GT SCH ×4 (06:57→20:53)
--- NOTE | 2022-04-05 07:24 | NUR ---
Closing Patient resting in bed, unlabored breathing on room air. Given PRN pain medication for complaint of back/leg pain. Suprapubic catheter and bilateral nephrostomies patent draining yellow urine with some sediment/cloudiness. Turned and repositioned. Call light in reach, fall and safety precautions maintained.
[2022-04-05 08:00] VITALS: BP_SYST 119
--- NOTE | 2022-04-05 08:00 | NUR ---
Pt is awake alert and oriented x3, vs stable, denies any pain, no acute distress, none tele, able to feed self with minimum assist. Awaiting for lab results, scheduled meds will be given. Will reposition and turn to prevent skin breakdown. Assuming care for pt at this time.
[2022-04-05 08:30] VITALS: BP_SYST 119
[2022-04-05 09:14] LABS: CALCIUM 8.2 mg/dL (8.4-11.0); CREATININE 1.18 mg/dL (0.55-1.30); POTASSIUM 3.6 mmol/L (3.5-5.1)
[2022-04-05 09:19] LABS: BASOPHILS # (AUTO) 0.1 K/uL (0.0-0.2); BASOPHILS % (AUTO) 1.4 % (0.0-2.0); EOSINOPHILS # (AUTO) 0.5 K/uL (0.0-0.4); EOSINOPHILS % (AUTO) 8.1 % (0.0-4.0); HEMATOCRIT 23.1 % (36-54); HEMOGLOBIN 7.6 g/dL (14.0-18.0); LYMPHOCYTES # (AUTO) 0.8 K/uL (1.0-5.5); LYMPHOCYTES % (AUTO) 13.6 % (20.5-51.5); MEAN CORPUSCULAR HEMOGLOBIN 27 pg (27-31); MEAN CORPUSCULAR HGB CONC 33 % (32-36); MEAN CORPUSCULAR VOLUME 80 fL (79.0-98.0); MONOCYTES # (AUTO) 0.6 K/uL (0.0-1.0); NEUTROPHILS # (AUTO) 3.9 K/uL (1.8-7.7); NEUTROPHILS % (AUTO) 66.9 % (40.0-70.0); PLATELET COUNT (AUTO) 472 K/uL (130-430); RED BLOOD CELL COUNT(AUTO) 2.89 MIL/uL (4.2-6.2); RED CELL DISTRIBUTION WIDTH 19.5 % (9.0-15.0)
[2022-04-05] MEDS: PANTOPRAZOLE SODIUM 40 MG TAB PO SCH ×2 (09:45→20:53)
[2022-04-05] MEDS: DOCUSATE SODIUM 100 MG CAPSULE PO SCH ×2 (09:46→20:54)
[2022-04-05] MEDS: METOPROLOL TARTRATE 25 MG TABLET PO SCH ×2 (09:46→20:58)
[2022-04-05] MEDS: FOLIC ACID 1 MG TABLET PO SCH (09:46)
[2022-04-05] MEDS: BACLOFEN 10 MG TABLET PO SCH ×3 (09:46→20:53)
[2022-04-05] MEDS: POLYETHYLENE GLYCOL 3350, 17 GM/ POWD.PACK PO SCH (09:56)
[2022-04-05] MEDS: LACTULOSE 20 GM/30 ML UDC PO SCH ×2 (09:56→20:53)
[2022-04-05] MEDS ORDERED: FOLI-43 PO (09:56)
[2022-04-05] MEDS ORDERED: FERR-69 PO (09:56)
--- NOTE | 2022-04-05 10:00 | NUR ---
Sponge bath, linen change and jerson care provided. Pt have 1 large brown solid with some liquid stool. Nephrostomy tubes intact and draining yellow drainage, supra pubic remains intact, patent and draining cloudy yellow urine. Will continue to monitor pt.
[2022-04-05 11:58] VITALS: BP_SYST 93
[2022-04-05 13:15] LABS: WHITE BLOOD COUNT (AUTO) 5.8 K/uL (4.8-10.8)
[2022-04-05 15:21] VITALS: BP_SYST 112
[2022-04-05] MEDS: SOD FERRIC GLUC COMPLEX/SUC 125 MG in NS 100 ML IV SCH (17:34)
[2022-04-05 20:15] VITALS: BP_SYST 114
[2022-04-05] MEDS: traZODone HCL 50 MG TABLET (DESYREL) PO SCH (20:53)
[2022-04-05] MEDS: SENNOSIDES 8.6 MG TABLET PO SCH (20:54)
[2022-04-06] VITALS: BP_SYST 115
[2022-04-06] MEDS: SUCRALFATE 1 GM/10 ML UDC GT SCH ×4 (06:24→21:59)
[2022-04-06] MEDS: NORMAL SALINE 5 ML DISP.SYRIN IVF SCH ×3 (06:24→22:00)
--- NOTE | 2022-04-06 07:40 | NUR ---
Closing Patient resting in bed, unlabored breathing on room air. Turned and repositioned. Incontinence care provided. Call light in reach, fall and safety precautions in place. Care endorsed to oncoming nurse.
[2022-04-06 08:00] VITALS: BP_SYST 101
--- NOTE | 2022-04-06 08:00 | NUR ---
OPENING NOTES: PATIENT EATING BREAKFAST W/ ASSIST. HOB ELEVATED. BREATHING EVEN AND NON LABORED TO RA. FALL, SAFETY AND ASPIRATION MEASURES REINFORCED. BED LOCKED, ALARM ON AND IN LOWEST POSITION. CALL LIGHT WITHIN REACH.
[2022-04-06] MEDS: METOPROLOL TARTRATE 25 MG TABLET PO SCH ×2 (09:00→22:03)
[2022-04-06] MEDS: PANTOPRAZOLE SODIUM 40 MG TAB PO SCH ×2 (09:21→21:59)
[2022-04-06] MEDS: FOLIC ACID 1 MG TABLET PO SCH (09:21)
[2022-04-06] MEDS: BACLOFEN 10 MG TABLET PO SCH ×3 (09:21→21:59)
[2022-04-06] MEDS: POLYETHYLENE GLYCOL 3350, 17 GM/ POWD.PACK PO SCH (09:21)
[2022-04-06] MEDS: LACTULOSE 20 GM/30 ML UDC PO SCH ×2 (09:22→21:59)
[2022-04-06] MEDS: DOCUSATE SODIUM 100 MG CAPSULE PO SCH ×2 (09:24→21:59)
--- NOTE | 2022-04-06 09:43 | NUR ---
Discharge Planning: DCP faxed pt referral to [facility] P#[phone] DCP to follow up Addendum: 04/06/22 at 1217 by Skye Martinez DP [facility] P#[phone] accepted pt to Rm 237A, tomorrow a Rapid covid test was requested DCP informed CM.
[2022-04-06 11:25] VITALS: BP_SYST 125
--- NOTE | 2022-04-06 11:52 | NUR ---
DISCHARGE PLANNING Order from yest to dc to SNF, pt fpc at [facility]. Spoke with pt this am & states that Dr Martinez informed him this am plan for dc tomorrow. States is agreeable with dc back to [facility] tomorrow if cleared by . Spoke with Dr Martinez in nsg station & states H/H dropped & wants to recheck it tomorrow, plan for dc back to SNF tomorrow. Updated dc senior buyer planner, [facility] requesting rapid covid. Rapid Covid ordered & informed pt's nurse.
[2022-04-06 15:34] VITALS: BP_SYST 128
[2022-04-06] MEDS: SOD FERRIC GLUC COMPLEX/SUC 125 MG in NS 100 ML IV SCH (18:02)
--- NOTE | 2022-04-06 19:00 | NUR ---
CLOSING NOTES: PATIENT RESTING IN BED. NO S/S OF ACUTE DISTRESS NOTED. NEEDS MET THROUGHOUT SHIFT. FALL AND SAFETY MEASURES PROVIDED. CALL LIGHT WITHIN REACH.
[2022-04-06 20:10] VITALS: BP_SYST 125
[2022-04-06] MEDS: traZODone HCL 50 MG TABLET (DESYREL) PO SCH (21:59)
[2022-04-06] MEDS: SENNOSIDES 8.6 MG TABLET PO SCH (21:59)
[2022-04-07] VITALS: BP_SYST 111
[2022-04-07] MEDS: SUCRALFATE 1 GM/10 ML UDC GT SCH ×2 (06:45→12:10)
[2022-04-07] MEDS: NORMAL SALINE 5 ML DISP.SYRIN IVF SCH (06:45)
[2022-04-07] MEDS: HYDROcodone/ACETAMIN 5-325 MG TAB (NORCO/ VICODIN) PO PRN (06:50)
[2022-04-07 06:51] LABS: BASOPHILS # (AUTO) 0.1 K/uL (0.0-0.2); BASOPHILS % (AUTO) 1.3 % (0.0-2.0); EOSINOPHILS # (AUTO) 0.4 K/uL (0.0-0.4); EOSINOPHILS % (AUTO) 4.4 % (0.0-4.0); HEMATOCRIT 26.1 % (36-54); HEMOGLOBIN 8.6 g/dL (14.0-18.0); LYMPHOCYTES # (AUTO) 0.7 K/uL (1.0-5.5); LYMPHOCYTES % (AUTO) 9.3 % (20.5-51.5); MEAN CORPUSCULAR HEMOGLOBIN 27 pg (27-31); MEAN CORPUSCULAR HGB CONC 33 % (32-36); MEAN CORPUSCULAR VOLUME 82 fL (79.0-98.0); MONOCYTES # (AUTO) 0.8 K/uL (0.0-1.0); MONOCYTES % (AUTO) 10.1 % (1.7-9.3); NEUTROPHILS % (AUTO) 74.9 % (40.0-70.0); PLATELET COUNT (AUTO) 420 K/uL (130-430); RED CELL DISTRIBUTION WIDTH 20.7 % (9.0-15.0)
[2022-04-07 08:00] VITALS: BP_SYST 100
--- NOTE | 2022-04-07 08:00 | NUR ---
OPENING NOTES: PATIENT RESTING IN BED. BILATERAL NEPHROSTOMY AND SUPRAPUBIC CATHETER IN PLACE AND DRAINING BY GRAVITY. DENIES ANY DISCOMFORT AT THIS TIME. FALL AND SAFETY MEASURES REINFORCED. CALL LIGHT WITHIN REACH.
[2022-04-07 08:04] LABS: CALCIUM 8.2 mg/dL (8.4-11.0); CREATININE 1.23 mg/dL (0.55-1.30); POTASSIUM 3.4 mmol/L (3.5-5.1)
[2022-04-07] MEDS: METOPROLOL TARTRATE 25 MG TABLET PO SCH (09:00)
[2022-04-07] MEDS: PANTOPRAZOLE SODIUM 40 MG TAB PO SCH (09:22)
[2022-04-07] MEDS: DOCUSATE SODIUM 100 MG CAPSULE PO SCH (09:22)
[2022-04-07] MEDS: FOLIC ACID 1 MG TABLET PO SCH (09:22)
[2022-04-07] MEDS: BACLOFEN 10 MG TABLET PO SCH (09:22)
[2022-04-07] MEDS: POLYETHYLENE GLYCOL 3350, 17 GM/ POWD.PACK PO SCH (09:24)
[2022-04-07] MEDS: LACTULOSE 20 GM/30 ML UDC PO SCH (09:24)
--- NOTE | 2022-04-07 11:17 | NUR ---
DISCHARGE PLANNING Order to dc to SNF, pt [facility] care at [facility]. Called & spoke with Edd at [facility] aware covid neg results from yest. Pt accepted back to room 237A, report ph [phone]. 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 Pt's nurse updated, packet to nsg station.
[2022-04-07 11:36] VITALS: BP_SYST 92
--- NOTE | 2022-04-07 11:41 | NUR ---
UNABLE TO REACH FAMILY: CALLED [facility] 3[facility] BUT NOBODY ANSWERS. [facility]
--- NOTE | 2022-04-07 11:45 | NUR ---
REPORT GIVEN TO BENNETT GROVER OF [facility]: REPORT GIVEN TO BENNETT GROVER OF [facility]. ALL QUESTIONS ANSWERED.
[2022-04-07 11:49] VITALS: BP_SYST 101
--- NOTE | 2022-04-07 13:10 | NUR ---
DISCHARGE NOTE Report given to BENNETT Ruano at [facility]. Transfer packet with Transfer Orders and Medication Reconciliation form given to EMT with report. Exit care provided. [facility] ID band removed, replaced with ID band with pt's name and . IV catheter removed, intact and dressing applied, no active bleeding. All belongings sent with patient. Patient left floor via gurney escorted by EMT of [facility] in no distress.
[2022-04-08 07:06] LABS: FERRITIN 111 ng/mL (30-400); HAPTOGLOBIN 286 mg/dL (29-370)
== END 2022-04-07 13:10 | DRG 380 ==
LOC: SED 00:32 → STU 04:24 → SMU 04-04 11:25
PROVIDERS: ADMIT Preventive Medicine Preventive Medicine/Occupational Environmental Medicine; ATTEND Preventive Medicine Preventive Medicine/Occupational Environmental Medicine
PROC: 30233N1 Transfusion of Nonautologous Red Blood Cells into Peripheral Vein, Percutaneous Approach (ICD-10-PCS; principal; 2022-04-01)
PROC: 0DB98ZX Excision of Duodenum, Via Natural or Artificial Opening Endoscopic, Diagnostic (ICD-10-PCS; 2022-04-01)
PROC: 0DB78ZX Excision of Stomach, Pylorus, Via Natural or Artificial Opening Endoscopic, Diagnostic (ICD-10-PCS; 2022-04-01)
PROC: 0DB28ZX Excision of Middle Esophagus, Via Natural or Artificial Opening Endoscopic, Diagnostic (ICD-10-PCS; 2022-04-01)
PROC: 0DJD8ZZ Inspection of Lower Intestinal Tract, Via Natural or Artificial Opening Endoscopic (ICD-10-PCS; 2022-04-04)
DX: K22.70 Barrett's esophagus without dysplasia (principal); E43 Unspecified severe protein-calorie malnutrition; N17.0 Acute kidney failure with tubular necrosis; K21.9 Gastro-esophageal reflux disease without esophagitis; K29.70 Gastritis, unspecified, without bleeding; D50.9 Iron deficiency anemia, unspecified; G80.9 Cerebral palsy, unspecified; J45.909 Unspecified asthma, uncomplicated; K57.90 Diverticulosis of intestine, part unspecified, without perforation or abscess without bleeding; D75.839 Thrombocytosis, unspecified; E83.51 Hypocalcemia; E83.52 Hypercalcemia; E88.09 Other disorders of plasma-protein metabolism, not elsewhere classified; F19.10 Other psychoactive substance abuse, uncomplicated; K44.9 Diaphragmatic hernia without obstruction or gangrene; N13.9 Obstructive and reflux uropathy, unspecified; Z20.822 Contact with and (suspected) exposure to COVID-19; N18.9 Chronic kidney disease, unspecified; Z22.322 Carrier or suspected carrier of Methicillin resistant Staphylococcus aureus; Z87.19 Personal history of other diseases of the digestive system; Z88.8 Allergy status to other drugs, medicaments and biological substances; Z79.899 Other long term (current) drug therapy; Z22.321 Carrier or suspected carrier of Methicillin susceptible Staphylococcus aureus
CPT/HCPCS: 36415; 43239; 45378; 80048; 80053; 82272; 82728; 83010; 83540; 83550; 85018; 85025; 86886; 86900; 86901; 86920; 87081; 88305; 88312; 88313; 88341; 88342; 93005; 96372; 99285; G0378; J1885; J2175; J2250; J2916; P9021

== ENCOUNTER 2022-06-04 20:29 | Inpatient (IN) | payer OTHER, MEDICAID ==
[~2022-06-04] VITALS: Ht 167.6 cm; Wt 48.7 kg
[~2022-06-04 20:29] MED LIST changes: +FERR-69 PO; +FLEETMO RC; +FOLI-43 PO
[2022-06-04 21:00] VITALS: BP_SYST 116
[2022-06-05] MEDS ORDERED: METO5TAB86 PO (00:13)
[2022-06-05] MEDS ORDERED: ASCO500T20 PO (00:13)
[2022-06-05] MEDS ORDERED: ZINC100T2 PO (00:13)
[2022-06-05] MEDS ORDERED: METO25TA6 PO (00:13)
[2022-06-05 01:07] LABS: BILIRUBIN,URINE NEGATIVE (NEGATIVE); BLOOD, URINE 3+ (NEGATIVE); COLOR,URINE YELLOW (YELLOW); GLUCOSE,URINE NEGATIVE (NEGATIVE); KETONES,URINE NEGATIVE (NEGATIVE); LEUKOCYTE ESTERASE ,URINE 3+ (NEGATIVE); NITRITE, URINE NEGATIVE (NEGATIVE); PH,URINE 8.5 (5.0-8.0); PROTEIN URINE 2+ (NEGATIVE); UROBILINOGEN,URINE 0.2 (0.2-1.0)
[2022-06-05 01:08] LABS: CLARITY/URINE HAZY (CLEAR)
[2022-06-05 01:37] LABS: BACTERIA,URINE MANY /HPF (None Seen); WBC,URINE 20-50 /HPF (0-3)
[2022-06-05 01:38] LABS: MUCUS,URINE None Seen /LPF (None Seen)
[2022-06-05] MEDS ORDERED: cefTRIAXone 1 GM in D5W 50 ML IV ONE (01:45)
[2022-06-05 02:06] LABS: BASOPHILS # (AUTO) 0.1 K/uL (0.0-0.2); BASOPHILS % (AUTO) 1.3 % (0.0-2.0); EOSINOPHILS # (AUTO) 0.7 K/uL (0.0-0.4); EOSINOPHILS % (AUTO) 10.1 % (0.0-4.0); HEMATOCRIT 34.6 % (36-54); LYMPHOCYTES % (AUTO) 14.2 % (20.5-51.5); MEAN CORPUSCULAR VOLUME 85 fL (79.0-98.0); MONOCYTES # (AUTO) 0.6 K/uL (0.0-1.0); MONOCYTES % (AUTO) 8.9 % (1.7-9.3); NEUTROPHILS # (AUTO) 4.6 K/uL (1.8-7.7); NEUTROPHILS % (AUTO) 65.5 % (40.0-70.0); PLATELET COUNT (AUTO) 279 K/uL (130-430); RED BLOOD CELL COUNT(AUTO) 4.06 MIL/uL (4.2-6.2); RED CELL DISTRIBUTION WIDTH 19.8 % (9.0-15.0); WHITE BLOOD COUNT (AUTO) 7.1 K/uL (4.8-10.8)
[2022-06-05 02:07] LABS: CREATININE 1.16 mg/dL (0.55-1.30)
[2022-06-05 02:13] LABS: ALBUMIN 2.8 g/dL (3.4-4.8); TOTAL BILIRUBIN 0.1 mg/dL (0.0-1.0)
[2022-06-05] MEDS ORDERED: cefTRIAXone 1 GM VIAL ONE (02:29)
[2022-06-05] MEDS ORDERED: HYDROcodone/ACETAMIN 5-325 MG TAB (NORCO/ VICODIN) PO ONE (03:30)
[2022-06-05 04:55] VITALS: BP_SYST 107
[2022-06-05] MEDS ORDERED: FLU VACC QS2022-23(6MOS UP)/PF 0.5 ML/SYR SYRINGE I.M. PRN (05:30)
[2022-06-05 07:00] VITALS: BP_SYST 119
[2022-06-05] MEDS ORDERED: HYDROcodone/ACETAMIN 5-325 MG TAB (NORCO/ VICODIN) PO PRN (10:15)
[2022-06-05] MEDS ORDERED: ACETAMINOPHEN 325 MG TABLET PO PRN (10:15)
[2022-06-05] MEDS ORDERED: BISACODYL 10 MG/SUPPOSITORY RC PRN (10:15)
[2022-06-05] MEDS ORDERED: NALOXONE HCL 0.4 MG/ML AMP (NARCAN) IVP PRN (10:15)
[2022-06-05] MEDS ORDERED: traMADol HCL HCL 50 MG TABLET (ULTRAM) PO PRN (10:15)
[2022-06-05] MEDS ORDERED: ONDANSETRON HCL 4 MG/2 ML VIAL IVP PRN (10:30)
[2022-06-05] MEDS ORDERED: LORazepam 2 MG/ML VIAL IVP PRN (10:30)
[2022-06-05 11:28] VITALS: BP_SYST 154
[2022-06-05] MEDS ORDERED: ONDANSETRON 4 MG ODT TAB PO PRN (13:00)
[2022-06-05] MEDS: NORMAL SALINE 5 ML DISP.SYRIN IVF SCH ×2 (14:00→21:35)
[2022-06-05] MEDS ORDERED: NORMAL SALINE 5 ML DISP.SYRIN IVF SCH (14:00)
[2022-06-05 15:30] VITALS: BP_SYST 131
[2022-06-05] MEDS: METOCLOPRAMIDE HCL 10 MG TABLET PO SCH ×3 (16:43→21:33)
[2022-06-05] MEDS: FERROUS SULFATE 325 MG TABLET.DR PO SCH (16:44)
[2022-06-05] MEDS: BACLOFEN 10 MG TABLET PO SCH ×2 (16:44→21:34)
[2022-06-05 20:00] VITALS: BP_SYST 113
[2022-06-05] MEDS: LACTULOSE 20 GM/30 ML UDC PO SCH ×2 (21:00→21:32)
[2022-06-05] MEDS: PANTOPRAZOLE SODIUM 40 MG TAB PO SCH (21:32)
[2022-06-05] MEDS: traZODone HCL 50 MG TABLET (DESYREL) PO SCH (21:34)
[2022-06-05] MEDS: METOPROLOL TARTRATE 25 MG TABLET PO SCH (21:34)
[2022-06-05] MEDS: SENNOSIDES 8.6 MG TABLET PO SCH (21:34)
[2022-06-05] MEDS: DOCUSATE SODIUM 100 MG CAPSULE PO SCH (21:34)
[2022-06-05] MEDS: CEFEPIME 1 GM in NS 50 ML IV SCH (21:36)
[2022-06-06 00:48] VITALS: BP_SYST 94
[2022-06-06] MEDS: NORMAL SALINE 5 ML DISP.SYRIN IVF SCH ×3 (06:53→23:28)
[2022-06-06] MEDS: METOCLOPRAMIDE HCL 10 MG TABLET PO SCH ×4 (06:53→23:18)
[2022-06-06 07:00] VITALS: BP_SYST 133
[2022-06-06 08:00] VITALS: BP_SYST 133
[2022-06-06 08:37] LABS: C-REACTIVE PROTEIN QUANT 3.5 mg/dL (0-0.5); CALCIUM 8.6 mg/dL (8.4-11.0); CREATININE 1.15 mg/dL (0.55-1.30); POTASSIUM 3.9 mmol/L (3.5-5.1)
[2022-06-06] MEDS ORDERED: cefTRIAXone 1 GM IVPB PREMIX 50 ML IV SCH (09:00)
[2022-06-06] MEDS: FERROUS SULFATE 325 MG TABLET.DR PO SCH ×2 (09:33→17:16)
[2022-06-06] MEDS: DOCUSATE SODIUM 100 MG CAPSULE PO SCH ×2 (09:34→23:18)
[2022-06-06] MEDS: CEFEPIME 1 GM in NS 50 ML IV SCH ×2 (09:34→23:27)
[2022-06-06] MEDS: BACLOFEN 10 MG TABLET PO SCH ×3 (09:34→23:18)
[2022-06-06] MEDS: LACTULOSE 20 GM/30 ML UDC PO SCH ×2 (09:35→21:00)
[2022-06-06] MEDS: PANTOPRAZOLE SODIUM 40 MG TAB PO SCH ×2 (09:35→23:17)
[2022-06-06] MEDS: FOLIC ACID 1 MG TABLET PO SCH (09:35)
[2022-06-06] MEDS: METOPROLOL TARTRATE 25 MG TABLET PO SCH ×2 (09:35→23:18)
[2022-06-06] MEDS: ASCORBIC ACID 500 MG TABLET PO SCH (09:36)
[2022-06-06] MEDS: POLYETHYLENE GLYCOL 3350, 17 GM/ POWD.PACK PO SCH (09:37)
[2022-06-06 11:29] VITALS: BP_SYST 140
[2022-06-06 14:19] LABS: BASOPHILS # (AUTO) 0.1 K/uL (0.0-0.2); BASOPHILS % (AUTO) 1.5 % (0.0-2.0); EOSINOPHILS # (AUTO) 0.7 K/uL (0.0-0.4); EOSINOPHILS % (AUTO) 11.2 % (0.0-4.0); HEMATOCRIT 35.2 % (36-54); LYMPHOCYTES # (AUTO) 0.9 K/uL (1.0-5.5); LYMPHOCYTES % (AUTO) 14.9 % (20.5-51.5); MEAN CORPUSCULAR VOLUME 86 fL (79.0-98.0); MONOCYTES # (AUTO) 0.5 K/uL (0.0-1.0); MONOCYTES % (AUTO) 8.1 % (1.7-9.3); NEUTROPHILS # (AUTO) 4.1 K/uL (1.8-7.7); NEUTROPHILS % (AUTO) 64.3 % (40.0-70.0); PLATELET COUNT (AUTO) 248 K/uL (130-430); RED CELL DISTRIBUTION WIDTH 20.8 % (9.0-15.0); WHITE BLOOD COUNT (AUTO) 6.3 K/uL (4.8-10.8)
[2022-06-06 15:39] VITALS: BP_SYST 112
[2022-06-06 17:17] LABS: ERYTHROCYTE SEDIMENTATION RATE 31 MM/HR (0-15)
[2022-06-06 20:00] VITALS: BP_SYST 127
[2022-06-06] MEDS: traZODone HCL 50 MG TABLET (DESYREL) PO SCH (23:17)
[2022-06-06] MEDS: SENNOSIDES 8.6 MG TABLET PO SCH (23:17)
[2022-06-07] VITALS: BP_SYST 106
[2022-06-07] MEDS: METOCLOPRAMIDE HCL 10 MG TABLET PO SCH ×4 (07:48→22:23)
[2022-06-07] MEDS: NORMAL SALINE 5 ML DISP.SYRIN IVF SCH ×3 (07:49→22:29)
[2022-06-07] MEDS: POLYETHYLENE GLYCOL 3350, 17 GM/ POWD.PACK PO SCH (09:28)
[2022-06-07] MEDS: FERROUS SULFATE 325 MG TABLET.DR PO SCH ×2 (09:29→17:24)
[2022-06-07] MEDS: LACTULOSE 20 GM/30 ML UDC PO SCH ×2 (09:29→22:24)
[2022-06-07] MEDS: FOLIC ACID 1 MG TABLET PO SCH (09:29)
[2022-06-07] MEDS: PANTOPRAZOLE SODIUM 40 MG TAB PO SCH ×2 (09:29→22:23)
[2022-06-07] MEDS: ASCORBIC ACID 500 MG TABLET PO SCH (09:30)
[2022-06-07] MEDS: BACLOFEN 10 MG TABLET PO SCH ×3 (09:30→22:24)
[2022-06-07] MEDS: METOPROLOL TARTRATE 25 MG TABLET PO SCH ×2 (09:31→22:22)
[2022-06-07] MEDS: CEFEPIME 1 GM in NS 50 ML IV SCH ×2 (09:36→22:25)
[2022-06-07] MEDS: DOCUSATE SODIUM 100 MG CAPSULE PO SCH ×2 (09:42→22:21)
[2022-06-07 11:28] LABS: C-REACTIVE PROTEIN QUANT 2.1 mg/dL (0-0.5); CALCIUM 8.6 mg/dL (8.4-11.0); CREATININE 1.12 mg/dL (0.55-1.30); POTASSIUM 4.1 mmol/L (3.5-5.1)
[2022-06-07 11:41] VITALS: BP_SYST 138
[2022-06-07 15:35] LABS: BASOPHILS # (AUTO) 0.1 K/uL (0.0-0.2); BASOPHILS % (AUTO) 1.8 % (0.0-2.0); EOSINOPHILS # (AUTO) 0.6 K/uL (0.0-0.4); EOSINOPHILS % (AUTO) 9.9 % (0.0-4.0); HEMATOCRIT 36.1 % (36-54); MEAN CORPUSCULAR VOLUME 88 fL (79.0-98.0); MONOCYTES # (AUTO) 0.5 K/uL (0.0-1.0); MONOCYTES % (AUTO) 8.6 % (1.7-9.3); NEUTROPHILS # (AUTO) 3.7 K/uL (1.8-7.7); NEUTROPHILS % (AUTO) 62.7 % (40.0-70.0); PLATELET COUNT (AUTO) 264 K/uL (130-430); RED BLOOD CELL COUNT(AUTO) 4.09 MIL/uL (4.2-6.2); RED CELL DISTRIBUTION WIDTH 20.7 % (9.0-15.0); WHITE BLOOD COUNT (AUTO) 5.9 K/uL (4.8-10.8)
[2022-06-07 15:41] VITALS: BP_SYST 141
[2022-06-07 19:03] LABS: ERYTHROCYTE SEDIMENTATION RATE 30 MM/HR (0-15)
[2022-06-07 20:00] VITALS: BP_SYST 117
[2022-06-07] MEDS: SENNOSIDES 8.6 MG TABLET PO SCH (22:23)
[2022-06-07] MEDS: MUPIROCIN 2% TOPICAL OINTMENT 22 GM NS SCH (22:26)
[2022-06-07] MEDS: traZODone HCL 50 MG TABLET (DESYREL) PO SCH (22:29)
[2022-06-08] VITALS: BP_SYST 106
[2022-06-08] MEDS: NORMAL SALINE 5 ML DISP.SYRIN IVF SCH ×3 (06:40→21:34)
[2022-06-08] MEDS: METOCLOPRAMIDE HCL 10 MG TABLET PO SCH ×4 (06:46→21:11)
[2022-06-08 07:10] LABS: ALBUMIN 2.9 g/dL (3.4-4.8); C-REACTIVE PROTEIN QUANT 0.5 mg/dL (0-0.5); CALCIUM 8.4 mg/dL (8.4-11.0); CREATININE 1.25 mg/dL (0.55-1.30); POTASSIUM 3.9 mmol/L (3.5-5.1); TOTAL BILIRUBIN 0.2 mg/dL (0.0-1.0)
[2022-06-08 07:49] LABS: BASOPHILS # (AUTO) 0.1 K/uL (0.0-0.2); BASOPHILS % (AUTO) 1.3 % (0.0-2.0); EOSINOPHILS # (AUTO) 0.7 K/uL (0.0-0.4); EOSINOPHILS % (AUTO) 13.1 % (0.0-4.0); HEMATOCRIT 36.4 % (36-54); LYMPHOCYTES # (AUTO) 0.9 K/uL (1.0-5.5); LYMPHOCYTES % (AUTO) 16.2 % (20.5-51.5); MEAN CORPUSCULAR VOLUME 85 fL (79.0-98.0); MONOCYTES # (AUTO) 0.4 K/uL (0.0-1.0); MONOCYTES % (AUTO) 7.6 % (1.7-9.3); NEUTROPHILS # (AUTO) 3.4 K/uL (1.8-7.7); NEUTROPHILS % (AUTO) 61.8 % (40.0-70.0); PLATELET COUNT (AUTO) 250 K/uL (130-430); RED BLOOD CELL COUNT(AUTO) 4.27 MIL/uL (4.2-6.2); RED CELL DISTRIBUTION WIDTH 19.8 % (9.0-15.0); WHITE BLOOD COUNT (AUTO) 5.5 K/uL (4.8-10.8)
[2022-06-08 08:00] VITALS: BP_SYST 126
[2022-06-08] MEDS: DOCUSATE SODIUM 100 MG CAPSULE PO SCH ×2 (09:22→21:08)
[2022-06-08] MEDS: FERROUS SULFATE 325 MG TABLET.DR PO SCH ×2 (09:22→18:24)
[2022-06-08] MEDS: FOLIC ACID 1 MG TABLET PO SCH (09:22)
[2022-06-08] MEDS: BACLOFEN 10 MG TABLET PO SCH ×3 (09:22→21:07)
[2022-06-08] MEDS: LACTULOSE 20 GM/30 ML UDC PO SCH ×2 (09:22→21:00)
[2022-06-08] MEDS: POLYETHYLENE GLYCOL 3350, 17 GM/ POWD.PACK PO SCH (09:23)
[2022-06-08] MEDS: METOPROLOL TARTRATE 25 MG TABLET PO SCH ×2 (09:23→21:08)
[2022-06-08] MEDS: CEFEPIME 1 GM in NS 50 ML IV SCH ×2 (09:24→21:04)
[2022-06-08] MEDS: ASCORBIC ACID 500 MG TABLET PO SCH (09:24)
[2022-06-08] MEDS: PANTOPRAZOLE SODIUM 40 MG TAB PO SCH ×2 (09:25→21:08)
[2022-06-08] MEDS: MUPIROCIN 2% TOPICAL OINTMENT 22 GM NS SCH ×2 (09:25→21:12)
[2022-06-08] MEDS ORDERED: ERTA1VIA IJ (10:36)
[2022-06-08 12:48] VITALS: BP_SYST 116
[2022-06-08 14:22] LABS: ERYTHROCYTE SEDIMENTATION RATE 29 MM/HR (0-15)
[2022-06-08 15:50] VITALS: BP_SYST 115
[2022-06-08 17:25] VITALS: BP_SYST 126
[2022-06-08 20:00] VITALS: BP_SYST 122
[2022-06-08] MEDS: SENNOSIDES 8.6 MG TABLET PO SCH (21:08)
[2022-06-08] MEDS: traZODone HCL 50 MG TABLET (DESYREL) PO SCH (21:11)
== END 2022-06-09 00:30 | DRG 872 ==
LOC: SED 20:29 → SMU 06-05 03:21
PROVIDERS: ADMIT Preventive Medicine Preventive Medicine/Occupational Environmental Medicine; ATTEND Preventive Medicine Preventive Medicine/Occupational Environmental Medicine
DX: A41.9 Sepsis, unspecified organism (principal); I47.1 Supraventricular tachycardia; E44.0 Moderate protein-calorie malnutrition; N39.0 Urinary tract infection, site not specified; N99.522 Malfunction of incontinent external stoma of urinary tract; N31.9 Neuromuscular dysfunction of bladder, unspecified; N13.9 Obstructive and reflux uropathy, unspecified; K21.9 Gastro-esophageal reflux disease without esophagitis; J45.909 Unspecified asthma, uncomplicated; I10 Essential (primary) hypertension; G80.9 Cerebral palsy, unspecified; D64.9 Anemia, unspecified; G89.4 Chronic pain syndrome; E88.09 Other disorders of plasma-protein metabolism, not elsewhere classified; B96.89 Other specified bacterial agents as the cause of diseases classified elsewhere; B96.20 Unspecified Escherichia coli [E. coli] as the cause of diseases classified elsewhere; Y83.8 Other surgical procedures as the cause of abnormal reaction of the patient, or of later complication, without mention of misadventure at the time of the procedure; Y82.8 Other medical devices associated with adverse incidents; Z20.822 Contact with and (suspected) exposure to COVID-19; K59.00 Constipation, unspecified; Z88.1 Allergy status to other antibiotic agents; Z22.322 Carrier or suspected carrier of Methicillin resistant Staphylococcus aureus; Z88.8 Allergy status to other drugs, medicaments and biological substances
CPT/HCPCS: 36415; 76376; 80048; 80053; 81000; 83605; 85025; 85651-TC; 86140; 87040; 87081; 87086; 96365; 99285; J0692; J0696; J8597

== ENCOUNTER 2022-07-26 14:45 | Inpatient (IN) | payer OTHER, MEDICAID ==
[~2022-07-26] VITALS: Ht 167.6 cm; Wt 44.9 kg
[~2022-07-26 14:45] MED LIST changes: -ALBMDI INH; +ASCO500T20 PO; +ERTA1VIA IJ; -FLEETMO RC; +METO5TAB86 PO; -NA P133E41 RC; -PIPE3.379 IV; -SUCR1ORA4 GT; +ZINC100T2 PO
[2022-07-26 15:00] VITALS: BP_SYST 118
[2022-07-26 17:11] LABS: BASOPHILS # (AUTO) 0.1 K/uL (0.0-0.2); BASOPHILS % (AUTO) 0.7 % (0.0-2.0); EOSINOPHILS # (AUTO) 0.5 K/uL (0.0-0.4); EOSINOPHILS % (AUTO) 6.2 % (0.0-4.0); HEMATOCRIT 32.9 % (36-54); HEMOGLOBIN 10.7 g/dL (14.0-18.0); LYMPHOCYTES # (AUTO) 0.8 K/uL (1.0-5.5); LYMPHOCYTES % (AUTO) 9.4 % (20.5-51.5); MEAN CORPUSCULAR HEMOGLOBIN 28 pg (27-31); MEAN CORPUSCULAR HGB CONC 33 % (32-36); MEAN CORPUSCULAR VOLUME 87 fL (79.0-98.0); MONOCYTES # (AUTO) 0.7 K/uL (0.0-1.0); NEUTROPHILS # (AUTO) 6.5 K/uL (1.8-7.7); NEUTROPHILS % (AUTO) 75.7 % (40.0-70.0); PLATELET COUNT (AUTO) 453 K/uL (130-430); RED BLOOD CELL COUNT(AUTO) 3.79 MIL/uL (4.2-6.2); RED CELL DISTRIBUTION WIDTH 19.8 % (9.0-15.0); WHITE BLOOD COUNT (AUTO) 8.6 K/uL (4.8-10.8)
[2022-07-26 17:15] LABS: CALCIUM 8.5 mg/dL (8.4-11.0); CREATININE 1.17 mg/dL (0.55-1.30)
[2022-07-26 17:21] LABS: ALBUMIN 2.5 g/dL (3.4-4.8); TOTAL BILIRUBIN 0.1 mg/dL (0.0-1.0)
[2022-07-26] MEDS ORDERED: AMIN887L PO (17:37)
[2022-07-26] MEDS ORDERED: LACT10SO6 PO (17:37)
[2022-07-26] MEDS ORDERED: SENN8.6T19 PO (17:37)
[2022-07-26] MEDS ORDERED: ZINC220T3 PO (17:37)
[2022-07-26] MEDS ORDERED: HYDR-3927 PO (17:37)
[2022-07-26] MEDS ORDERED: PERM60CR18 TP (17:37)
[2022-07-26] MEDS ORDERED: ASCO500T20 PO (17:37)
[2022-07-26] MEDS ORDERED: SUCR1TAB2 PO (17:37)
[2022-07-26] MEDS ORDERED: METO-290 PO (17:37)
[2022-07-26] MEDS ORDERED: MULT-1193 PO (17:37)
[2022-07-26 19:23] LABS: BILIRUBIN,URINE NEGATIVE (NEGATIVE); BLOOD, URINE 3+ (NEGATIVE); COLOR,URINE YELLOW (YELLOW); GLUCOSE,URINE NEGATIVE (NEGATIVE); KETONES,URINE NEGATIVE (NEGATIVE); LEUKOCYTE ESTERASE ,URINE 3+ (NEGATIVE); NITRITE, URINE NEGATIVE (NEGATIVE); PROTEIN URINE 1+ (NEGATIVE); UROBILINOGEN,URINE 0.2 (0.2-1.0)
[2022-07-26 19:34] LABS: CLARITY/URINE HAZY (CLEAR)
[2022-07-26 19:35] LABS: BACTERIA,URINE MODERATE /HPF (None Seen); MUCUS,URINE None Seen /LPF (None Seen); RBC,URINE 0-3 /HPF (0-3); WBC,URINE 80-100 /HPF (0-3)
[2022-07-26] MEDS: DOCUSATE SODIUM 100 MG CAPSULE PO SCH (21:00)
[2022-07-26] MEDS: SENNOSIDES 8.6 MG TABLET PO SCH (21:00)
[2022-07-26] MEDS ORDERED: BISACODYL 10 MG/SUPPOSITORY RC PRN (21:00)
[2022-07-26] MEDS: traZODone HCL 50 MG TABLET (DESYREL) PO SCH (21:00)
[2022-07-26] MEDS ORDERED: NALOXONE HCL 0.4 MG/ML AMP (NARCAN) IVP PRN (21:00)
[2022-07-26] MEDS: BACLOFEN 10 MG TABLET PO SCH (21:00)
[2022-07-26] MEDS: METOPROLOL TARTRATE 25 MG TABLET PO SCH (21:00)
[2022-07-26] MEDS: ASCORBIC ACID 500 MG TABLET PO SCH (21:00)
[2022-07-26] MEDS: PANTOPRAZOLE SODIUM 40 MG TAB PO SCH (21:00)
[2022-07-26] MEDS: SUCRALFATE 1 GM TABLET PO SCH (21:00)
[2022-07-26] MEDS ORDERED: ONDANSETRON 4 MG ODT TAB PO PRN (21:45)
[2022-07-26] MEDS: NORMAL SALINE 5 ML DISP.SYRIN IVF SCH (22:00)
[2022-07-26] MEDS ORDERED: NORMAL SALINE 5 ML DISP.SYRIN IVF SCH (22:00)
[2022-07-26 22:11] VITALS: BP_SYST 124
[2022-07-27 02:07] VITALS: BP_SYST 130
[2022-07-27 04:00] VITALS: BP_SYST 128
[2022-07-27] MEDS: METOCLOPRAMIDE HCL 10 MG TABLET PO SCH ×3 (07:00→16:50)
[2022-07-27] MEDS: NORMAL SALINE 5 ML DISP.SYRIN IVF SCH ×3 (08:00→22:31)
[2022-07-27] MEDS: SUCRALFATE 1 GM TABLET PO SCH ×4 (08:00→22:09)
[2022-07-27 08:40] LABS: BASOPHILS # (AUTO) 0.1 K/uL (0.0-0.2); EOSINOPHILS # (AUTO) 0.7 K/uL (0.0-0.4); EOSINOPHILS % (AUTO) 5.8 % (0.0-4.0); HEMATOCRIT 37.4 % (36-54); LYMPHOCYTES # (AUTO) 0.9 K/uL (1.0-5.5); LYMPHOCYTES % (AUTO) 7.3 % (20.5-51.5); MEAN CORPUSCULAR HEMOGLOBIN 28 pg (27-31); MEAN CORPUSCULAR HGB CONC 32 % (32-36); MEAN CORPUSCULAR VOLUME 87 fL (79.0-98.0); MONOCYTES # (AUTO) 0.6 K/uL (0.0-1.0); NEUTROPHILS # (AUTO) 9.5 K/uL (1.8-7.7); NEUTROPHILS % (AUTO) 80.9 % (40.0-70.0); PLATELET COUNT (AUTO) 487 K/uL (130-430); RED CELL DISTRIBUTION WIDTH 19.4 % (9.0-15.0); WHITE BLOOD COUNT (AUTO) 11.7 K/uL (4.8-10.8)
[2022-07-27 08:55] LABS: ALBUMIN 2.9 g/dL (3.4-4.8); CREATININE 1.16 mg/dL (0.55-1.30); PHOSPHORUS 3.4 mg/dL (2.7-4.5); TOTAL BILIRUBIN 0.4 mg/dL (0.0-1.0)
[2022-07-27 08:56] LABS: PROTHROMBIN TIME 10.6 SECS (9.5-12.5)
[2022-07-27] MEDS ORDERED: NON-FORMULARY MEDICATION (Amino Acids/Protein Hydrolys (Pro-Stat Liquid) 30 ML) PO SCH (09:00)
[2022-07-27] MEDS: POLYETHYLENE GLYCOL 3350, 17 GM/ POWD.PACK PO SCH (09:01)
[2022-07-27] MEDS: MULTIVITS,CA,MINERALS/IRON/FA 1 TABLET PO SCH (09:01)
[2022-07-27] MEDS: ASCORBIC ACID 500 MG TABLET PO SCH ×2 (09:01→22:09)
[2022-07-27] MEDS: PANTOPRAZOLE SODIUM 40 MG TAB PO SCH ×2 (09:01→22:11)
[2022-07-27] MEDS: METOPROLOL TARTRATE 25 MG TABLET PO SCH ×2 (09:02→22:10)
[2022-07-27] MEDS: BACLOFEN 10 MG TABLET PO SCH ×3 (09:02→22:09)
[2022-07-27] MEDS: LACTULOSE 20 GM/30 ML UDC PO SCH ×2 (09:02→22:11)
[2022-07-27] MEDS: FERROUS SULFATE 325 MG TABLET.DR PO SCH ×2 (09:02→16:50)
[2022-07-27] MEDS: DOCUSATE SODIUM 100 MG CAPSULE PO SCH ×2 (09:02→22:11)
[2022-07-27] MEDS: FOLIC ACID 1 MG TABLET PO SCH (09:02)
[2022-07-27 11:40] VITALS: BP_SYST 129
[2022-07-27] MEDS ORDERED: cefTRIAXone 1 GM in D5W 50 ML IV SCH (13:00)
[2022-07-27 15:35] VITALS: BP_SYST 132
[2022-07-27 21:31] VITALS: BP_SYST 119
[2022-07-27] MEDS: HYDROcodone/ACETAMIN 10-325 MG TAB PO PRN (22:11)
[2022-07-27] MEDS: SENNOSIDES 8.6 MG TABLET PO SCH (22:30)
[2022-07-27] MEDS: traZODone HCL 50 MG TABLET (DESYREL) PO SCH (22:30)
[2022-07-28 05:31] VITALS: BP_SYST 112
[2022-07-28] MEDS: METOCLOPRAMIDE HCL 10 MG TABLET PO SCH ×3 (06:59→16:33)
[2022-07-28] MEDS: SUCRALFATE 1 GM TABLET PO SCH ×4 (06:59→21:28)
[2022-07-28] MEDS: NORMAL SALINE 5 ML DISP.SYRIN IVF SCH ×3 (07:00→22:35)
[2022-07-28 07:10] LABS: BASOPHILS # (AUTO) 0.1 K/uL (0.0-0.2); BASOPHILS % (AUTO) 0.9 % (0.0-2.0); EOSINOPHILS # (AUTO) 0.6 K/uL (0.0-0.4); HEMATOCRIT 35.4 % (36-54); HEMOGLOBIN 11.5 g/dL (14.0-18.0); LYMPHOCYTES # (AUTO) 0.8 K/uL (1.0-5.5); MEAN CORPUSCULAR HEMOGLOBIN 28 pg (27-31); MEAN CORPUSCULAR HGB CONC 32 % (32-36); MEAN CORPUSCULAR VOLUME 87 fL (79.0-98.0); MONOCYTES # (AUTO) 0.6 K/uL (0.0-1.0); MONOCYTES % (AUTO) 6.8 % (1.7-9.3); NEUTROPHILS # (AUTO) 6.8 K/uL (1.8-7.7); NEUTROPHILS % (AUTO) 76.3 % (40.0-70.0); PLATELET COUNT (AUTO) 403 K/uL (130-430); RED BLOOD CELL COUNT(AUTO) 4.05 MIL/uL (4.2-6.2); RED CELL DISTRIBUTION WIDTH 19.6 % (9.0-15.0); WHITE BLOOD COUNT (AUTO) 8.9 K/uL (4.8-10.8)
[2022-07-28 07:25] LABS: C-REACTIVE PROTEIN QUANT 5.5 mg/dL (0-0.5); CALCIUM 8.6 mg/dL (8.4-11.0); CREATININE 1.32 mg/dL (0.55-1.30)
[2022-07-28 08:00] VITALS: BP_SYST 106
[2022-07-28 08:45] LABS: ERYTHROCYTE SEDIMENTATION RATE 48 MM/HR (0-15)
[2022-07-28] MEDS: LACTULOSE 20 GM/30 ML UDC PO SCH ×2 (09:16→21:28)
[2022-07-28] MEDS: POLYETHYLENE GLYCOL 3350, 17 GM/ POWD.PACK PO SCH (09:16)
[2022-07-28] MEDS: FOLIC ACID 1 MG TABLET PO SCH (09:17)
[2022-07-28] MEDS: FERROUS SULFATE 325 MG TABLET.DR PO SCH ×2 (09:17→17:46)
[2022-07-28] MEDS: ASCORBIC ACID 500 MG TABLET PO SCH ×2 (09:17→21:29)
[2022-07-28] MEDS: MULTIVITS,CA,MINERALS/IRON/FA 1 TABLET PO SCH (09:17)
[2022-07-28] MEDS: METOPROLOL TARTRATE 25 MG TABLET PO SCH ×2 (09:17→22:33)
[2022-07-28] MEDS: DOCUSATE SODIUM 100 MG CAPSULE PO SCH ×2 (09:18→21:28)
[2022-07-28] MEDS: PANTOPRAZOLE SODIUM 40 MG TAB PO SCH ×2 (09:18→21:28)
[2022-07-28] MEDS: BACLOFEN 10 MG TABLET PO SCH ×3 (09:18→21:29)
[2022-07-28] MEDS ORDERED: POTASSIUM CHLORIDE 20 MEQ TAB.PRT.SR PO ONE (10:45)
[2022-07-28 11:55] VITALS: BP_SYST 109
[2022-07-28] MEDS: traMADol HCL HCL 50 MG TABLET (ULTRAM) PO PRN (12:08)
[2022-07-28] MEDS: ERTAPENEM SODIUM 1 GM in NS 50 ML IV SCH (12:45)
[2022-07-28] MEDS: D5/0.45 NS 1,000 ML IV SCH ×2 (12:45→22:40)
[2022-07-28 16:00] VITALS: BP_SYST 110
[2022-07-28] MEDS: DIPHENHYDRAMINE HCL 50 MG CAPSULE PO PRN (16:33)
[2022-07-28 21:23] VITALS: BP_SYST 124
[2022-07-28] MEDS: SENNOSIDES 8.6 MG TABLET PO SCH (21:28)
[2022-07-28] MEDS: traZODone HCL 50 MG TABLET (DESYREL) PO SCH (22:33)
[2022-07-29] VITALS: BP_SYST 139
[2022-07-29] MEDS: D5/0.45 NS 1,000 ML IV SCH ×2 (06:45→09:02)
[2022-07-29 06:47] LABS: BASOPHILS # (AUTO) 0.1 K/uL (0.0-0.2); BASOPHILS % (AUTO) 0.9 % (0.0-2.0); EOSINOPHILS # (AUTO) 0.5 K/uL (0.0-0.4); EOSINOPHILS % (AUTO) 6.6 % (0.0-4.0); HEMATOCRIT 35.9 % (36-54); HEMOGLOBIN 11.6 g/dL (14.0-18.0); LYMPHOCYTES # (AUTO) 0.6 K/uL (1.0-5.5); LYMPHOCYTES % (AUTO) 8.1 % (20.5-51.5); MEAN CORPUSCULAR HEMOGLOBIN 28 pg (27-31); MEAN CORPUSCULAR HGB CONC 32 % (32-36); MEAN CORPUSCULAR VOLUME 87 fL (79.0-98.0); MONOCYTES # (AUTO) 0.6 K/uL (0.0-1.0); MONOCYTES % (AUTO) 7.1 % (1.7-9.3); NEUTROPHILS % (AUTO) 77.3 % (40.0-70.0); PLATELET COUNT (AUTO) 396 K/uL (130-430); RED BLOOD CELL COUNT(AUTO) 4.14 MIL/uL (4.2-6.2); RED CELL DISTRIBUTION WIDTH 19.2 % (9.0-15.0); WHITE BLOOD COUNT (AUTO) 7.8 K/uL (4.8-10.8)
[2022-07-29] MEDS: SUCRALFATE 1 GM TABLET PO SCH ×4 (07:00→21:09)
[2022-07-29 08:00] VITALS: BP_SYST 124
[2022-07-29 08:27] LABS: C-REACTIVE PROTEIN QUANT 3.7 mg/dL (0-0.5); CALCIUM 8.7 mg/dL (8.4-11.0); CREATININE 1.17 mg/dL (0.55-1.30); PHOSPHORUS 2.6 mg/dL (2.7-4.5)
[2022-07-29 08:51] LABS: ERYTHROCYTE SEDIMENTATION RATE 39 MM/HR (0-15)
[2022-07-29] MEDS: METOCLOPRAMIDE HCL 10 MG TABLET PO SCH ×3 (09:01→17:41)
[2022-07-29] MEDS: traMADol HCL HCL 50 MG TABLET (ULTRAM) PO PRN (09:02)
[2022-07-29] MEDS ORDERED: K PHOS 15 MM in NS 250 ML IV ONE (12:00)
[2022-07-29] MEDS: ERTAPENEM SODIUM 1 GM in NS 50 ML IV SCH (12:00)
[2022-07-29] MEDS ORDERED: MUPIROCIN 2% TOPICAL OINTMENT 22 GM NS ONE (12:00)
[2022-07-29] MEDS: LACTULOSE 20 GM/30 ML UDC PO SCH ×3 (12:02→21:08)
[2022-07-29] MEDS: POLYETHYLENE GLYCOL 3350, 17 GM/ POWD.PACK PO SCH (12:02)
[2022-07-29] MEDS: BACLOFEN 10 MG TABLET PO SCH ×3 (12:04→21:08)
[2022-07-29] MEDS: FOLIC ACID 1 MG TABLET PO SCH (12:04)
[2022-07-29] MEDS: POTASSIUM CHLORIDE 20 MEQ TAB.PRT.SR PO SCH ×2 (12:04→21:08)
[2022-07-29] MEDS: PANTOPRAZOLE SODIUM 40 MG TAB PO SCH ×2 (12:05→21:09)
[2022-07-29] MEDS: METOPROLOL TARTRATE 25 MG TABLET PO SCH ×2 (12:05→21:08)
[2022-07-29] MEDS: DOCUSATE SODIUM 100 MG CAPSULE PO SCH ×2 (12:06→21:09)
[2022-07-29] MEDS: FERROUS SULFATE 325 MG TABLET.DR PO SCH ×2 (12:06→17:41)
[2022-07-29] MEDS: MULTIVITS,CA,MINERALS/IRON/FA 1 TABLET PO SCH (12:06)
[2022-07-29] MEDS: ASCORBIC ACID 500 MG TABLET PO SCH ×2 (12:06→21:09)
[2022-07-29 12:45] VITALS: BP_SYST 111
[2022-07-29] MEDS: ONDANSETRON HCL 4 MG/2 ML VIAL IVP PRN ×2 (13:40→19:29)
[2022-07-29] MEDS: NORMAL SALINE 5 ML DISP.SYRIN IVF SCH ×2 (15:26→21:10)
[2022-07-29 16:27] VITALS: BP_SYST 115
[2022-07-29 20:00] VITALS: BP_SYST 128
[2022-07-29] MEDS: MUPIROCIN 2% TOPICAL OINTMENT 22 GM NS SCH (21:00)
[2022-07-29] MEDS: SENNOSIDES 8.6 MG TABLET PO SCH (21:09)
[2022-07-29] MEDS: traZODone HCL 50 MG TABLET (DESYREL) PO SCH (21:09)
[2022-07-30] VITALS: BP_SYST 125
[2022-07-30] MEDS: D5/0.45 NS 1,000 ML IV SCH (02:07)
[2022-07-30] MEDS: ONDANSETRON HCL 4 MG/2 ML VIAL IVP PRN ×2 (02:08→14:29)
[2022-07-30] MEDS: DIPHENHYDRAMINE HCL 50 MG CAPSULE PO PRN ×2 (02:18→23:09)
[2022-07-30] MEDS: NORMAL SALINE 5 ML DISP.SYRIN IVF SCH ×5 (07:00→23:20)
[2022-07-30 07:04] LABS: BASOPHILS # (AUTO) 0.1 K/uL (0.0-0.2); BASOPHILS % (AUTO) 0.8 % (0.0-2.0); EOSINOPHILS # (AUTO) 0.7 K/uL (0.0-0.4); EOSINOPHILS % (AUTO) 6.8 % (0.0-4.0); HEMATOCRIT 34.7 % (36-54); HEMOGLOBIN 11.4 g/dL (14.0-18.0); MEAN CORPUSCULAR HEMOGLOBIN 29 pg (27-31); MEAN CORPUSCULAR HGB CONC 33 % (32-36); MEAN CORPUSCULAR VOLUME 88 fL (79.0-98.0); MONOCYTES # (AUTO) 0.8 K/uL (0.0-1.0); MONOCYTES % (AUTO) 8.2 % (1.7-9.3); NEUTROPHILS # (AUTO) 7.2 K/uL (1.8-7.7); NEUTROPHILS % (AUTO) 74.2 % (40.0-70.0); PLATELET COUNT (AUTO) 363 K/uL (130-430); RED BLOOD CELL COUNT(AUTO) 3.95 MIL/uL (4.2-6.2); RED CELL DISTRIBUTION WIDTH 19.1 % (9.0-15.0); WHITE BLOOD COUNT (AUTO) 9.7 K/uL (4.8-10.8)
[2022-07-30] MEDS: SUCRALFATE 1 GM TABLET PO SCH ×4 (07:08→23:18)
[2022-07-30] MEDS: METOCLOPRAMIDE HCL 10 MG TABLET PO SCH ×3 (07:08→13:28)
[2022-07-30 07:22] LABS: C-REACTIVE PROTEIN QUANT 2.2 mg/dL (0-0.5); CALCIUM 8.1 mg/dL (8.4-11.0); CREATININE 1.14 mg/dL (0.55-1.30)
[2022-07-30 08:00] VITALS: BP_SYST 123
[2022-07-30] MEDS ORDERED: MILK OF MAGNESIA 30 ML UDC PO ONE (08:00)
[2022-07-30] MEDS ORDERED: MINERAL OIL 133 ML ENEMA RC ONE (08:00)
[2022-07-30] MEDS: MULTIVITS,CA,MINERALS/IRON/FA 1 TABLET PO SCH (09:18)
[2022-07-30] MEDS: POLYETHYLENE GLYCOL 3350, 17 GM/ POWD.PACK PO SCH (09:18)
[2022-07-30] MEDS: LACTULOSE 20 GM/30 ML UDC PO SCH ×2 (09:18→21:00)
[2022-07-30] MEDS: FOLIC ACID 1 MG TABLET PO SCH (09:19)
[2022-07-30] MEDS: BACLOFEN 10 MG TABLET PO SCH ×3 (09:20→22:50)
[2022-07-30] MEDS: POTASSIUM CHLORIDE 20 MEQ TAB.PRT.SR PO SCH ×2 (09:20→23:18)
[2022-07-30] MEDS: ASCORBIC ACID 500 MG TABLET PO SCH ×2 (09:20→22:48)
[2022-07-30] MEDS: PANTOPRAZOLE SODIUM 40 MG TAB PO SCH ×2 (09:20→22:50)
[2022-07-30] MEDS: FERROUS SULFATE 325 MG TABLET.DR PO SCH ×2 (09:20→13:27)
[2022-07-30] MEDS: DOCUSATE SODIUM 100 MG CAPSULE PO SCH ×2 (09:20→21:00)
[2022-07-30] MEDS: METOPROLOL TARTRATE 25 MG TABLET PO SCH ×2 (09:23→22:49)
[2022-07-30] MEDS: MUPIROCIN 2% TOPICAL OINTMENT 22 GM NS SCH ×2 (09:30→23:47)
[2022-07-30 11:28] LABS: ERYTHROCYTE SEDIMENTATION RATE 28 MM/HR (0-15)
[2022-07-30] MEDS: ERTAPENEM SODIUM 1 GM in NS 50 ML IV SCH (13:19)
[2022-07-30 16:00] VITALS: BP_SYST 130
[2022-07-30] MEDS: SENNOSIDES 8.6 MG TABLET PO SCH (21:00)
[2022-07-30] MEDS: traZODone HCL 50 MG TABLET (DESYREL) PO SCH (23:46)
[2022-07-31] VITALS: BP_SYST 138
[2022-07-31 07:01] LABS: BASOPHILS # (AUTO) 0.1 K/uL (0.0-0.2); BASOPHILS % (AUTO) 1.2 % (0.0-2.0); EOSINOPHILS # (AUTO) 0.8 K/uL (0.0-0.4); EOSINOPHILS % (AUTO) 10.9 % (0.0-4.0); HEMATOCRIT 30.6 % (36-54); HEMOGLOBIN 10.2 g/dL (14.0-18.0); LYMPHOCYTES # (AUTO) 0.8 K/uL (1.0-5.5); LYMPHOCYTES % (AUTO) 11.8 % (20.5-51.5); MEAN CORPUSCULAR HEMOGLOBIN 29 pg (27-31); MEAN CORPUSCULAR HGB CONC 33 % (32-36); MEAN CORPUSCULAR VOLUME 88 fL (79.0-98.0); MONOCYTES # (AUTO) 0.5 K/uL (0.0-1.0); MONOCYTES % (AUTO) 6.8 % (1.7-9.3); NEUTROPHILS % (AUTO) 69.3 % (40.0-70.0); PLATELET COUNT (AUTO) 340 K/uL (130-430); RED BLOOD CELL COUNT(AUTO) 3.48 MIL/uL (4.2-6.2); RED CELL DISTRIBUTION WIDTH 19.6 % (9.0-15.0); WHITE BLOOD COUNT (AUTO) 7.2 K/uL (4.8-10.8)
[2022-07-31 07:30] LABS: ALBUMIN 2.4 g/dL (3.4-4.8); C-REACTIVE PROTEIN QUANT 1.4 mg/dL (0-0.5); CALCIUM 8.4 mg/dL (8.4-11.0); CREATININE 1.01 mg/dL (0.55-1.30); PHOSPHORUS 2.9 mg/dL (2.7-4.5); TOTAL BILIRUBIN 0.2 mg/dL (0.0-1.0)
[2022-07-31 08:00] VITALS: BP_SYST 104
[2022-07-31 08:06] LABS: ERYTHROCYTE SEDIMENTATION RATE 32 MM/HR (0-15)
[2022-07-31] MEDS: SUCRALFATE 1 GM TABLET PO SCH ×4 (08:12→23:07)
[2022-07-31] MEDS: METOCLOPRAMIDE HCL 10 MG TABLET PO SCH ×3 (08:12→17:27)
[2022-07-31] MEDS: NORMAL SALINE 5 ML DISP.SYRIN IVF SCH ×5 (08:13→23:13)
[2022-07-31] MEDS: FERROUS SULFATE 325 MG TABLET.DR PO SCH ×2 (08:16→17:27)
[2022-07-31] MEDS: PANTOPRAZOLE SODIUM 40 MG TAB PO SCH ×2 (08:36→23:07)
[2022-07-31] MEDS: MULTIVITS,CA,MINERALS/IRON/FA 1 TABLET PO SCH (08:36)
[2022-07-31] MEDS: FOLIC ACID 1 MG TABLET PO SCH (08:37)
[2022-07-31] MEDS: POTASSIUM CHLORIDE 20 MEQ TAB.PRT.SR PO SCH ×2 (08:37→23:08)
[2022-07-31] MEDS: ASCORBIC ACID 500 MG TABLET PO SCH ×2 (08:37→23:07)
[2022-07-31] MEDS: METOPROLOL TARTRATE 25 MG TABLET PO SCH ×2 (08:38→23:23)
[2022-07-31] MEDS: HYDROcodone/ACETAMIN 10-325 MG TAB PO PRN (08:38)
[2022-07-31] MEDS: LACTULOSE 20 GM/30 ML UDC PO SCH ×2 (08:42→23:11)
[2022-07-31] MEDS: DOCUSATE SODIUM 100 MG CAPSULE PO SCH ×2 (08:42→23:10)
[2022-07-31] MEDS: POLYETHYLENE GLYCOL 3350, 17 GM/ POWD.PACK PO SCH (08:42)
[2022-07-31] MEDS: BACLOFEN 10 MG TABLET PO SCH ×3 (08:45→23:08)
[2022-07-31] MEDS: MUPIROCIN 2% TOPICAL OINTMENT 22 GM NS SCH ×2 (08:48→23:14)
[2022-07-31] MEDS: ERTAPENEM SODIUM 1 GM in NS 50 ML IV SCH (11:58)
[2022-07-31 12:00] VITALS: BP_SYST 134
[2022-07-31] MEDS: HYDROCORTISONE 1%, 28.35 GM TOPICAL CREAM TP PRN (13:03)
[2022-07-31] MEDS: DIPHENHYDRAMINE HCL 50 MG CAPSULE PO PRN ×2 (14:01→23:07)
[2022-07-31 16:00] VITALS: BP_SYST 125
[2022-07-31] MEDS ORDERED: ERTA1VIA IJ ×2 (16:30)
[2022-07-31 20:00] VITALS: BP_SYST 106
[2022-07-31] MEDS: SENNOSIDES 8.6 MG TABLET PO SCH (23:11)
[2022-07-31] MEDS: traZODone HCL 50 MG TABLET (DESYREL) PO SCH (23:22)
[2022-08-01] VITALS: BP_SYST 106
[2022-08-01] MEDS: NORMAL SALINE 5 ML DISP.SYRIN IVF SCH ×6 (06:00→22:11)
[2022-08-01 07:01] LABS: BASOPHILS # (AUTO) 0.1 K/uL (0.0-0.2); BASOPHILS % (AUTO) 0.7 % (0.0-2.0); EOSINOPHILS # (AUTO) 0.9 K/uL (0.0-0.4); EOSINOPHILS % (AUTO) 10.6 % (0.0-4.0); HEMATOCRIT 33.6 % (36-54); HEMOGLOBIN 10.9 g/dL (14.0-18.0); LYMPHOCYTES % (AUTO) 11.8 % (20.5-51.5); MEAN CORPUSCULAR HEMOGLOBIN 29 pg (27-31); MEAN CORPUSCULAR HGB CONC 33 % (32-36); MEAN CORPUSCULAR VOLUME 88 fL (79.0-98.0); MONOCYTES # (AUTO) 0.7 K/uL (0.0-1.0); MONOCYTES % (AUTO) 8.1 % (1.7-9.3); NEUTROPHILS # (AUTO) 5.8 K/uL (1.8-7.7); NEUTROPHILS % (AUTO) 68.8 % (40.0-70.0); PLATELET COUNT (AUTO) 350 K/uL (130-430); RED BLOOD CELL COUNT(AUTO) 3.81 MIL/uL (4.2-6.2); RED CELL DISTRIBUTION WIDTH 19.2 % (9.0-15.0); WHITE BLOOD COUNT (AUTO) 8.4 K/uL (4.8-10.8)
[2022-08-01 07:31] LABS: CALCIUM 8.9 mg/dL (8.4-11.0); CREATININE 1.17 mg/dL (0.55-1.30)
[2022-08-01 07:53] LABS: ERYTHROCYTE SEDIMENTATION RATE 34 MM/HR (0-15)
[2022-08-01] MEDS: SUCRALFATE 1 GM TABLET PO SCH ×4 (08:32→22:06)
[2022-08-01] MEDS: FERROUS SULFATE 325 MG TABLET.DR PO SCH ×2 (08:32→17:09)
[2022-08-01] MEDS: METOCLOPRAMIDE HCL 10 MG TABLET PO SCH ×3 (08:33→16:58)
[2022-08-01] MEDS: DOCUSATE SODIUM 100 MG CAPSULE PO SCH ×2 (09:00→22:06)
[2022-08-01] MEDS: LACTULOSE 20 GM/30 ML UDC PO SCH ×2 (09:00→22:07)
[2022-08-01] MEDS: POLYETHYLENE GLYCOL 3350, 17 GM/ POWD.PACK PO SCH (09:00)
[2022-08-01 11:24] VITALS: BP_SYST 113
[2022-08-01] MEDS: MUPIROCIN 2% TOPICAL OINTMENT 22 GM NS SCH ×2 (11:27→22:05)
[2022-08-01] MEDS: PANTOPRAZOLE SODIUM 40 MG TAB PO SCH ×2 (11:27→22:09)
[2022-08-01] MEDS: FOLIC ACID 1 MG TABLET PO SCH (11:27)
[2022-08-01] MEDS: ASCORBIC ACID 500 MG TABLET PO SCH ×2 (11:28→22:09)
[2022-08-01] MEDS: POTASSIUM CHLORIDE 20 MEQ TAB.PRT.SR PO SCH ×2 (11:29→22:07)
[2022-08-01] MEDS: METOPROLOL TARTRATE 25 MG TABLET PO SCH ×2 (11:30→21:00)
[2022-08-01] MEDS: BACLOFEN 10 MG TABLET PO SCH ×3 (11:30→22:06)
[2022-08-01] MEDS: MULTIVITS,CA,MINERALS/IRON/FA 1 TABLET PO SCH (11:31)
[2022-08-01 12:00] VITALS: BP_SYST 110
[2022-08-01] MEDS: ERTAPENEM SODIUM 1 GM in NS 50 ML IV SCH (14:04)
[2022-08-01 16:45] VITALS: BP_SYST 112
[2022-08-01 19:00] VITALS: BP_SYST 116
[2022-08-01 20:00] VITALS: BP_SYST 116
[2022-08-01] MEDS: SENNOSIDES 8.6 MG TABLET PO SCH (22:09)
[2022-08-01] MEDS: traZODone HCL 50 MG TABLET (DESYREL) PO SCH (22:19)
[2022-08-01] MEDS: HYDROcodone/ACETAMIN 10-325 MG TAB PO PRN (23:07)
[2022-08-02] MEDS: HYDROcodone/ACETAMIN 10-325 MG TAB PO PRN ×3 (02:53→12:34)
[2022-08-02] MEDS: NORMAL SALINE 5 ML DISP.SYRIN IVF SCH ×6 (06:35→22:15)
[2022-08-02] MEDS: SUCRALFATE 1 GM TABLET PO SCH ×4 (06:39→21:12)
[2022-08-02] MEDS: METOCLOPRAMIDE HCL 10 MG TABLET PO SCH ×3 (06:40→17:00)
[2022-08-02 07:12] LABS: BASOPHILS # (AUTO) 0.1 K/uL (0.0-0.2); BASOPHILS % (AUTO) 1.1 % (0.0-2.0); EOSINOPHILS # (AUTO) 0.7 K/uL (0.0-0.4); EOSINOPHILS % (AUTO) 8.9 % (0.0-4.0); HEMOGLOBIN 11.6 g/dL (14.0-18.0); LYMPHOCYTES # (AUTO) 0.8 K/uL (1.0-5.5); LYMPHOCYTES % (AUTO) 10.2 % (20.5-51.5); MEAN CORPUSCULAR HEMOGLOBIN 29 pg (27-31); MEAN CORPUSCULAR HGB CONC 32 % (32-36); MEAN CORPUSCULAR VOLUME 88 fL (79.0-98.0); MONOCYTES # (AUTO) 0.6 K/uL (0.0-1.0); MONOCYTES % (AUTO) 7.4 % (1.7-9.3); NEUTROPHILS # (AUTO) 5.8 K/uL (1.8-7.7); NEUTROPHILS % (AUTO) 72.4 % (40.0-70.0); PLATELET COUNT (AUTO) 323 K/uL (130-430); RED BLOOD CELL COUNT(AUTO) 4.08 MIL/uL (4.2-6.2); RED CELL DISTRIBUTION WIDTH 19.8 % (9.0-15.0); WHITE BLOOD COUNT (AUTO) 8.1 K/uL (4.8-10.8)
[2022-08-02 07:28] LABS: C-REACTIVE PROTEIN QUANT 2.2 mg/dL (0-0.5); CREATININE 1.32 mg/dL (0.55-1.30)
[2022-08-02 08:00] VITALS: BP_SYST 121
[2022-08-02 08:33] LABS: ERYTHROCYTE SEDIMENTATION RATE 38 MM/HR (0-15)
[2022-08-02] MEDS: LACTULOSE 20 GM/30 ML UDC PO SCH ×2 (09:00→21:03)
[2022-08-02] MEDS: POLYETHYLENE GLYCOL 3350, 17 GM/ POWD.PACK PO SCH (09:00)
[2022-08-02] MEDS: DOCUSATE SODIUM 100 MG CAPSULE PO SCH ×2 (09:00→21:03)
[2022-08-02] MEDS: FERROUS SULFATE 325 MG TABLET.DR PO SCH ×2 (09:57→17:09)
[2022-08-02] MEDS: ASCORBIC ACID 500 MG TABLET PO SCH ×2 (09:57→21:05)
[2022-08-02] MEDS: MULTIVITS,CA,MINERALS/IRON/FA 1 TABLET PO SCH (09:57)
[2022-08-02] MEDS: POTASSIUM CHLORIDE 20 MEQ TAB.PRT.SR PO SCH ×2 (09:58→21:12)
[2022-08-02] MEDS: FOLIC ACID 1 MG TABLET PO SCH (09:58)
[2022-08-02] MEDS: BACLOFEN 10 MG TABLET PO SCH ×3 (09:58→21:03)
[2022-08-02] MEDS: PANTOPRAZOLE SODIUM 40 MG TAB PO SCH ×2 (09:58→21:11)
[2022-08-02] MEDS: traMADol HCL HCL 50 MG TABLET (ULTRAM) PO PRN ×2 (09:58→17:10)
[2022-08-02] MEDS: MUPIROCIN 2% TOPICAL OINTMENT 22 GM NS SCH ×2 (09:59→21:13)
[2022-08-02] MEDS: METOPROLOL TARTRATE 25 MG TABLET PO SCH ×2 (10:00→21:05)
[2022-08-02] MEDS: DIPHENHYDRAMINE HCL 50 MG CAPSULE PO PRN ×2 (12:33→17:10)
[2022-08-02] MEDS: ERTAPENEM SODIUM 1 GM in NS 50 ML IV SCH (12:34)
[2022-08-02] MEDS: D5W 1,000 ML IV SCH ×2 (12:36→21:15)
[2022-08-02 12:56] VITALS: BP_SYST 115
[2022-08-02] MEDS: ONDANSETRON HCL 4 MG/2 ML VIAL IVP PRN (13:00)
[2022-08-02 16:23] VITALS: BP_SYST 113
[2022-08-02 20:00] VITALS: BP_SYST 101
[2022-08-02] MEDS: SENNOSIDES 8.6 MG TABLET PO SCH (21:11)
[2022-08-02] MEDS: traZODone HCL 50 MG TABLET (DESYREL) PO SCH (21:41)
[2022-08-03 00:40] VITALS: BP_SYST 132
[2022-08-03] MEDS: NORMAL SALINE 5 ML DISP.SYRIN IVF SCH ×6 (06:00→23:06)
[2022-08-03] MEDS: SUCRALFATE 1 GM TABLET PO SCH ×3 (06:25→17:38)
[2022-08-03] MEDS: METOCLOPRAMIDE HCL 10 MG TABLET PO SCH ×3 (06:26→17:38)
[2022-08-03 07:21] LABS: BASOPHILS # (AUTO) 0.1 K/uL (0.0-0.2); BASOPHILS % (AUTO) 0.8 % (0.0-2.0); EOSINOPHILS # (AUTO) 0.7 K/uL (0.0-0.4); EOSINOPHILS % (AUTO) 10.4 % (0.0-4.0); HEMATOCRIT 32.4 % (36-54); HEMOGLOBIN 10.5 g/dL (14.0-18.0); LYMPHOCYTES % (AUTO) 13.3 % (20.5-51.5); MEAN CORPUSCULAR HEMOGLOBIN 29 pg (27-31); MEAN CORPUSCULAR HGB CONC 33 % (32-36); MEAN CORPUSCULAR VOLUME 90 fL (79.0-98.0); MONOCYTES # (AUTO) 0.6 K/uL (0.0-1.0); NEUTROPHILS # (AUTO) 4.8 K/uL (1.8-7.7); NEUTROPHILS % (AUTO) 67.5 % (40.0-70.0); PLATELET COUNT (AUTO) 297 K/uL (130-430); RED BLOOD CELL COUNT(AUTO) 3.61 MIL/uL (4.2-6.2); RED CELL DISTRIBUTION WIDTH 19.5 % (9.0-15.0); WHITE BLOOD COUNT (AUTO) 7.1 K/uL (4.8-10.8)
[2022-08-03 08:34] LABS: ALBUMIN 2.7 g/dL (3.4-4.8); CALCIUM 8.4 mg/dL (8.4-11.0); CREATININE 1.35 mg/dL (0.55-1.30); TOTAL BILIRUBIN 0.1 mg/dL (0.0-1.0)
[2022-08-03 08:36] VITALS: BP_SYST 128
[2022-08-03 09:42] LABS: ERYTHROCYTE SEDIMENTATION RATE 31 MM/HR (0-15)
[2022-08-03] MEDS: BACLOFEN 10 MG TABLET PO SCH ×2 (09:45→10:01)
[2022-08-03] MEDS: FERROUS SULFATE 325 MG TABLET.DR PO SCH ×2 (09:45→10:03)
[2022-08-03] MEDS: DOCUSATE SODIUM 100 MG CAPSULE PO SCH ×2 (10:00→22:55)
[2022-08-03] MEDS: D5W 1,000 ML IV SCH (10:00)
[2022-08-03] MEDS: PANTOPRAZOLE SODIUM 40 MG TAB PO SCH ×2 (10:00→22:55)
[2022-08-03] MEDS: FOLIC ACID 1 MG TABLET PO SCH (10:01)
[2022-08-03] MEDS: ASCORBIC ACID 500 MG TABLET PO SCH ×2 (10:01→22:55)
[2022-08-03] MEDS: POTASSIUM CHLORIDE 20 MEQ TAB.PRT.SR PO SCH ×2 (10:02→23:03)
[2022-08-03] MEDS: METOPROLOL TARTRATE 25 MG TABLET PO SCH ×2 (10:02→22:54)
[2022-08-03] MEDS: POLYETHYLENE GLYCOL 3350, 17 GM/ POWD.PACK PO SCH (10:03)
[2022-08-03] MEDS: LACTULOSE 20 GM/30 ML UDC PO SCH ×2 (10:03→23:04)
[2022-08-03] MEDS: MULTIVITS,CA,MINERALS/IRON/FA 1 TABLET PO SCH (10:03)
[2022-08-03 11:39] VITALS: BP_SYST 113
[2022-08-03] MEDS: ERTAPENEM SODIUM 1 GM in NS 50 ML IV SCH (13:07)
[2022-08-03 16:15] VITALS: BP_SYST 94
[2022-08-03] MEDS: traMADol HCL HCL 50 MG TABLET (ULTRAM) PO PRN ×2 (19:36→19:37)
[2022-08-03] MEDS: traZODone HCL 50 MG TABLET (DESYREL) PO SCH (21:00)
[2022-08-03] MEDS: SENNOSIDES 8.6 MG TABLET PO SCH (22:54)
[2022-08-03] MEDS: DIPHENHYDRAMINE HCL 50 MG CAPSULE PO PRN (22:55)
[2022-08-03] MEDS: HYDROcodone/ACETAMIN 10-325 MG TAB PO PRN (22:57)
[2022-08-04] MEDS: HYDROcodone/ACETAMIN 10-325 MG TAB PO PRN ×2 (00:39→16:22)
[2022-08-04] MEDS: NORMAL SALINE 5 ML DISP.SYRIN IVF SCH ×6 (06:07→21:47)
[2022-08-04 07:06] LABS: C-REACTIVE PROTEIN QUANT 1.8 mg/dL (0-0.5); CALCIUM 8.4 mg/dL (8.4-11.0); CREATININE 1.2 mg/dL (0.55-1.30); PHOSPHORUS 3.2 mg/dL (2.7-4.5)
[2022-08-04 07:30] VITALS: BP_SYST 118
[2022-08-04 07:41] LABS: BASOPHILS # (AUTO) 0.1 K/uL (0.0-0.2); BASOPHILS % (AUTO) 0.8 % (0.0-2.0); HEMATOCRIT 33.6 % (36-54); HEMOGLOBIN 10.8 g/dL (14.0-18.0); LYMPHOCYTES % (AUTO) 12.1 % (20.5-51.5); MEAN CORPUSCULAR HEMOGLOBIN 29 pg (27-31); MEAN CORPUSCULAR HGB CONC 32 % (32-36); MEAN CORPUSCULAR VOLUME 89 fL (79.0-98.0); MONOCYTES # (AUTO) 0.6 K/uL (0.0-1.0); MONOCYTES % (AUTO) 7.1 % (1.7-9.3); NEUTROPHILS # (AUTO) 5.7 K/uL (1.8-7.7); PLATELET COUNT (AUTO) 307 K/uL (130-430); RED BLOOD CELL COUNT(AUTO) 3.76 MIL/uL (4.2-6.2); RED CELL DISTRIBUTION WIDTH 19.4 % (9.0-15.0); WHITE BLOOD COUNT (AUTO) 8.4 K/uL (4.8-10.8)
[2022-08-04] MEDS: FERROUS SULFATE 325 MG TABLET.DR PO SCH (08:00)
[2022-08-04] MEDS: FOLIC ACID 1 MG TABLET PO SCH (09:59)
[2022-08-04] MEDS: POTASSIUM CHLORIDE 20 MEQ TAB.PRT.SR PO SCH ×2 (10:00→21:45)
[2022-08-04] MEDS: MULTIVITS,CA,MINERALS/IRON/FA 1 TABLET PO SCH (10:00)
[2022-08-04] MEDS: METOPROLOL TARTRATE 25 MG TABLET PO SCH ×2 (10:01→21:46)
[2022-08-04] MEDS: ASCORBIC ACID 500 MG TABLET PO SCH ×2 (10:01→21:45)
[2022-08-04] MEDS: PANTOPRAZOLE SODIUM 40 MG TAB PO SCH ×2 (10:02→21:45)
[2022-08-04] MEDS: DOCUSATE SODIUM 100 MG CAPSULE PO SCH ×2 (10:03→21:45)
[2022-08-04] MEDS: LACTULOSE 20 GM/30 ML UDC PO SCH ×2 (10:03→21:47)
[2022-08-04] MEDS: POLYETHYLENE GLYCOL 3350, 17 GM/ POWD.PACK PO SCH (10:04)
[2022-08-04 11:55] LABS: ERYTHROCYTE SEDIMENTATION RATE 32 MM/HR (0-15)
[2022-08-04] MEDS: ERTAPENEM SODIUM 1 GM in NS 50 ML IV SCH (13:29)
[2022-08-04 13:51] VITALS: BP_SYST 134
[2022-08-04] MEDS: DIPHENHYDRAMINE HCL 50 MG CAPSULE PO PRN (16:22)
[2022-08-04 18:06] VITALS: BP_SYST 117
[2022-08-04 20:00] VITALS: BP_SYST 100
[2022-08-04] MEDS: SUCRALFATE 1 GM TABLET PO SCH (21:44)
[2022-08-04] MEDS: BACLOFEN 10 MG TABLET PO SCH (21:44)
[2022-08-04] MEDS: SENNOSIDES 8.6 MG TABLET PO SCH (21:44)
[2022-08-04] MEDS: traZODone HCL 50 MG TABLET (DESYREL) PO SCH (21:45)
[2022-08-05 01:15] VITALS: BP_SYST 90
[2022-08-05] MEDS: METOCLOPRAMIDE HCL 10 MG TABLET PO SCH ×4 (06:00→17:21)
[2022-08-05] MEDS: NORMAL SALINE 5 ML DISP.SYRIN IVF SCH ×6 (06:01→22:03)
[2022-08-05] MEDS: SUCRALFATE 1 GM TABLET PO SCH ×4 (06:01→21:50)
[2022-08-05 07:00] VITALS: BP_SYST 106
[2022-08-05 07:15] LABS: BASOPHILS # (AUTO) 0.1 K/uL (0.0-0.2); BASOPHILS % (AUTO) 0.7 % (0.0-2.0); EOSINOPHILS % (AUTO) 10.8 % (0.0-4.0); HEMATOCRIT 34.2 % (36-54); LYMPHOCYTES # (AUTO) 0.7 K/uL (1.0-5.5); LYMPHOCYTES % (AUTO) 8.2 % (20.5-51.5); MEAN CORPUSCULAR HEMOGLOBIN 29 pg (27-31); MEAN CORPUSCULAR HGB CONC 32 % (32-36); MEAN CORPUSCULAR VOLUME 90 fL (79.0-98.0); MONOCYTES # (AUTO) 0.5 K/uL (0.0-1.0); MONOCYTES % (AUTO) 5.8 % (1.7-9.3); NEUTROPHILS # (AUTO) 6.7 K/uL (1.8-7.7); NEUTROPHILS % (AUTO) 74.5 % (40.0-70.0); PLATELET COUNT (AUTO) 266 K/uL (130-430); RED BLOOD CELL COUNT(AUTO) 3.81 MIL/uL (4.2-6.2)
[2022-08-05 07:35] LABS: C-REACTIVE PROTEIN QUANT 3.1 mg/dL (0-0.5); CREATININE 1.1 mg/dL (0.55-1.30)
[2022-08-05 08:00] VITALS: BP_SYST 106
[2022-08-05] MEDS: FERROUS SULFATE 325 MG TABLET.DR PO SCH ×3 (08:00→17:27)
[2022-08-05 08:33] LABS: ERYTHROCYTE SEDIMENTATION RATE 36 MM/HR (0-15)
[2022-08-05] MEDS: DOCUSATE SODIUM 100 MG CAPSULE PO SCH ×2 (08:58→21:49)
[2022-08-05] MEDS: FOLIC ACID 1 MG TABLET PO SCH (08:58)
[2022-08-05] MEDS: POTASSIUM CHLORIDE 20 MEQ TAB.PRT.SR PO SCH ×2 (08:58→21:54)
[2022-08-05] MEDS: MULTIVITS,CA,MINERALS/IRON/FA 1 TABLET PO SCH (08:58)
[2022-08-05] MEDS: BACLOFEN 10 MG TABLET PO SCH ×3 (08:58→21:48)
[2022-08-05] MEDS: PANTOPRAZOLE SODIUM 40 MG TAB PO SCH ×2 (08:58→21:54)
[2022-08-05] MEDS: ASCORBIC ACID 500 MG TABLET PO SCH ×2 (08:58→21:53)
[2022-08-05] MEDS: LACTULOSE 20 GM/30 ML UDC PO SCH ×2 (08:58→21:54)
[2022-08-05] MEDS: METOPROLOL TARTRATE 25 MG TABLET PO SCH ×2 (08:59→21:53)
[2022-08-05] MEDS: POLYETHYLENE GLYCOL 3350, 17 GM/ POWD.PACK PO SCH (08:59)
[2022-08-05 11:47] VITALS: BP_SYST 110
[2022-08-05] MEDS: ERTAPENEM SODIUM 1 GM in NS 50 ML IV SCH (12:16)
[2022-08-05] MEDS ORDERED: MENTHOL/ZINC OXIDE 113 GM OINT. TP PRN (16:00)
[2022-08-05 18:01] VITALS: BP_SYST 104
[2022-08-05 20:00] VITALS: BP_SYST 111
[2022-08-05] MEDS: SENNOSIDES 8.6 MG TABLET PO SCH (21:51)
[2022-08-05] MEDS: DIPHENHYDRAMINE HCL 50 MG CAPSULE PO PRN (22:02)
[2022-08-05] MEDS: ONDANSETRON HCL 4 MG/2 ML VIAL IVP PRN (22:02)
[2022-08-05] MEDS: traZODone HCL 50 MG TABLET (DESYREL) PO SCH (22:03)
[2022-08-05] MEDS ORDERED: HYDROCORTISONE 0.5% CREAM 28.4 GM CREAM.GM. TP ONE (22:56)
[2022-08-06 00:25] VITALS: BP_SYST 119
[2022-08-06] MEDS: NORMAL SALINE 5 ML DISP.SYRIN IVF SCH ×4 (06:27→21:19)
[2022-08-06] MEDS: SUCRALFATE 1 GM TABLET PO SCH ×4 (06:53→21:17)
[2022-08-06] MEDS: METOCLOPRAMIDE HCL 10 MG TABLET PO SCH ×3 (06:54→17:52)
[2022-08-06 06:56] LABS: BASOPHILS # (AUTO) 0.1 K/uL (0.0-0.2); BASOPHILS % (AUTO) 1.2 % (0.0-2.0); EOSINOPHILS # (AUTO) 1.1 K/uL (0.0-0.4); HEMATOCRIT 34.2 % (36-54); HEMOGLOBIN 11.2 g/dL (14.0-18.0); LYMPHOCYTES # (AUTO) 0.9 K/uL (1.0-5.5); LYMPHOCYTES % (AUTO) 11.3 % (20.5-51.5); MEAN CORPUSCULAR HEMOGLOBIN 29 pg (27-31); MEAN CORPUSCULAR HGB CONC 33 % (32-36); MEAN CORPUSCULAR VOLUME 89 fL (79.0-98.0); MONOCYTES # (AUTO) 0.7 K/uL (0.0-1.0); MONOCYTES % (AUTO) 8.4 % (1.7-9.3); NEUTROPHILS # (AUTO) 5.4 K/uL (1.8-7.7); NEUTROPHILS % (AUTO) 66.1 % (40.0-70.0); PLATELET COUNT (AUTO) 360 K/uL (130-430); RED BLOOD CELL COUNT(AUTO) 3.85 MIL/uL (4.2-6.2); RED CELL DISTRIBUTION WIDTH 19.8 % (9.0-15.0); WHITE BLOOD COUNT (AUTO) 8.2 K/uL (4.8-10.8)
[2022-08-06 07:05] LABS: C-REACTIVE PROTEIN QUANT 4.7 mg/dL (0-0.5); CALCIUM 8.2 mg/dL (8.4-11.0); CREATININE 1.31 mg/dL (0.55-1.30)
[2022-08-06] MEDS: FOLIC ACID 1 MG TABLET PO SCH (08:40)
[2022-08-06] MEDS: MULTIVITS,CA,MINERALS/IRON/FA 1 TABLET PO SCH (08:40)
[2022-08-06] MEDS: METOPROLOL TARTRATE 25 MG TABLET PO SCH ×2 (08:41→21:00)
[2022-08-06] MEDS: BACLOFEN 10 MG TABLET PO SCH ×3 (08:41→21:18)
[2022-08-06] MEDS: PANTOPRAZOLE SODIUM 40 MG TAB PO SCH ×2 (08:42→21:18)
[2022-08-06] MEDS: DOCUSATE SODIUM 100 MG CAPSULE PO SCH ×2 (08:43→21:19)
[2022-08-06] MEDS: FERROUS SULFATE 325 MG TABLET.DR PO SCH ×2 (08:43→17:54)
[2022-08-06] MEDS: POLYETHYLENE GLYCOL 3350, 17 GM/ POWD.PACK PO SCH (08:43)
[2022-08-06] MEDS: POTASSIUM CHLORIDE 20 MEQ TAB.PRT.SR PO SCH ×2 (08:44→21:17)
[2022-08-06] MEDS: LACTULOSE 20 GM/30 ML UDC PO SCH ×2 (08:44→21:17)
[2022-08-06] MEDS: ASCORBIC ACID 500 MG TABLET PO SCH ×2 (08:46→21:18)
[2022-08-06] MEDS: BALSAM PERU/CASTOR OIL 56.7 GM OINT...G. TP SCH (08:46)
[2022-08-06 11:51] VITALS: BP_SYST 119
[2022-08-06 12:05] LABS: ERYTHROCYTE SEDIMENTATION RATE 34 MM/HR (0-15)
[2022-08-06] MEDS: ERTAPENEM SODIUM 1 GM in NS 50 ML IV SCH (12:53)
[2022-08-06 16:52] VITALS: BP_SYST 102
[2022-08-06 20:00] VITALS: BP_SYST 101
[2022-08-06] MEDS: ACETAMINOPHEN 325 MG TABLET PO PRN (21:01)
[2022-08-06] MEDS: DIPHENHYDRAMINE HCL 50 MG CAPSULE PO PRN (21:17)
[2022-08-06] MEDS: SENNOSIDES 8.6 MG TABLET PO SCH (21:18)
[2022-08-06] MEDS: traZODone HCL 50 MG TABLET (DESYREL) PO SCH (21:18)
[2022-08-07 00:55] VITALS: BP_SYST 110
[2022-08-07] MEDS: ACETAMINOPHEN 325 MG TABLET PO PRN ×3 (01:16→20:50)
[2022-08-07] MEDS: DIPHENHYDRAMINE HCL 50 MG CAPSULE PO PRN ×3 (01:16→20:49)
[2022-08-07] MEDS: NORMAL SALINE 5 ML DISP.SYRIN IVF SCH ×3 (06:41→20:49)
[2022-08-07] MEDS: SUCRALFATE 1 GM TABLET PO SCH ×4 (06:41→20:48)
[2022-08-07] MEDS: METOCLOPRAMIDE HCL 10 MG TABLET PO SCH ×3 (06:41→16:27)
[2022-08-07 06:50] LABS: BASOPHILS # (AUTO) 0.1 K/uL (0.0-0.2); BASOPHILS % (AUTO) 1.1 % (0.0-2.0); EOSINOPHILS % (AUTO) 16.7 % (0.0-4.0); HEMATOCRIT 32.6 % (36-54); HEMOGLOBIN 10.7 g/dL (14.0-18.0); LYMPHOCYTES % (AUTO) 16.5 % (20.5-51.5); MEAN CORPUSCULAR HEMOGLOBIN 29 pg (27-31); MEAN CORPUSCULAR HGB CONC 33 % (32-36); MEAN CORPUSCULAR VOLUME 89 fL (79.0-98.0); MONOCYTES # (AUTO) 0.6 K/uL (0.0-1.0); MONOCYTES % (AUTO) 9.3 % (1.7-9.3); NEUTROPHILS # (AUTO) 3.4 K/uL (1.8-7.7); NEUTROPHILS % (AUTO) 56.4 % (40.0-70.0); PLATELET COUNT (AUTO) 303 K/uL (130-430); RED BLOOD CELL COUNT(AUTO) 3.64 MIL/uL (4.2-6.2); RED CELL DISTRIBUTION WIDTH 20.2 % (9.0-15.0); WHITE BLOOD COUNT (AUTO) 6.1 K/uL (4.8-10.8)
[2022-08-07 07:09] LABS: ALBUMIN 2.7 g/dL (3.4-4.8); C-REACTIVE PROTEIN QUANT 3.3 mg/dL (0-0.5); CALCIUM 7.9 mg/dL (8.4-11.0); CREATININE 1.32 mg/dL (0.55-1.30); PHOSPHORUS 3.1 mg/dL (2.7-4.5); TOTAL BILIRUBIN 0.2 mg/dL (0.0-1.0)
[2022-08-07] MEDS: LACTULOSE 20 GM/30 ML UDC PO SCH ×2 (09:00→20:48)
[2022-08-07] MEDS: POLYETHYLENE GLYCOL 3350, 17 GM/ POWD.PACK PO SCH (09:00)
[2022-08-07] MEDS: FOLIC ACID 1 MG TABLET PO SCH (09:02)
[2022-08-07] MEDS: METOPROLOL TARTRATE 25 MG TABLET PO SCH ×2 (09:03→20:49)
[2022-08-07] MEDS: ASCORBIC ACID 500 MG TABLET PO SCH ×2 (09:03→20:49)
[2022-08-07] MEDS: DOCUSATE SODIUM 100 MG CAPSULE PO SCH ×2 (09:03→20:48)
[2022-08-07] MEDS: POTASSIUM CHLORIDE 20 MEQ TAB.PRT.SR PO SCH ×2 (09:04→20:49)
[2022-08-07] MEDS: MULTIVITS,CA,MINERALS/IRON/FA 1 TABLET PO SCH (09:04)
[2022-08-07] MEDS: PANTOPRAZOLE SODIUM 40 MG TAB PO SCH ×2 (09:04→20:49)
[2022-08-07] MEDS: BACLOFEN 10 MG TABLET PO SCH ×3 (09:05→20:48)
[2022-08-07] MEDS: FERROUS SULFATE 325 MG TABLET.DR PO SCH ×2 (09:05→17:10)
[2022-08-07] MEDS: BALSAM PERU/CASTOR OIL 56.7 GM OINT...G. TP SCH (09:06)
[2022-08-07] MEDS: ERTAPENEM SODIUM 1 GM in NS 50 ML IV SCH (11:16)
[2022-08-07 11:50] VITALS: BP_SYST 117
[2022-08-07 13:22] LABS: ERYTHROCYTE SEDIMENTATION RATE 38 MM/HR (0-15)
[2022-08-07 15:20] VITALS: BP_SYST 119
[2022-08-07 20:00] VITALS: BP_SYST 104
[2022-08-07] MEDS: traZODone HCL 50 MG TABLET (DESYREL) PO SCH (20:48)
[2022-08-07] MEDS: SENNOSIDES 8.6 MG TABLET PO SCH (20:49)
[2022-08-08] VITALS (9 sets, daily range): BP systolic 99–122
[2022-08-08] MEDS: DIPHENHYDRAMINE HCL 50 MG CAPSULE PO PRN (04:15)
[2022-08-08] MEDS: METOCLOPRAMIDE HCL 10 MG TABLET PO SCH ×3 (04:15→17:23)
[2022-08-08] MEDS: SUCRALFATE 1 GM TABLET PO SCH ×4 (04:15→22:03)
[2022-08-08] MEDS: NORMAL SALINE 5 ML DISP.SYRIN IVF SCH ×3 (04:16→22:04)
[2022-08-08] MEDS: HYDROCORTISONE 1%, 28.35 GM TOPICAL CREAM TP PRN ×2 (04:21→16:34)
[2022-08-08 06:53] LABS: BASOPHILS # (AUTO) 0.1 K/uL (0.0-0.2); BASOPHILS % (AUTO) 0.9 % (0.0-2.0); EOSINOPHILS # (AUTO) 1.1 K/uL (0.0-0.4); EOSINOPHILS % (AUTO) 15.3 % (0.0-4.0); HEMATOCRIT 36.1 % (36-54); HEMOGLOBIN 11.7 g/dL (14.0-18.0); LYMPHOCYTES # (AUTO) 0.8 K/uL (1.0-5.5); LYMPHOCYTES % (AUTO) 11.7 % (20.5-51.5); MEAN CORPUSCULAR HEMOGLOBIN 29 pg (27-31); MEAN CORPUSCULAR HGB CONC 33 % (32-36); MEAN CORPUSCULAR VOLUME 91 fL (79.0-98.0); MONOCYTES # (AUTO) 0.4 K/uL (0.0-1.0); NEUTROPHILS # (AUTO) 4.7 K/uL (1.8-7.7); NEUTROPHILS % (AUTO) 66.1 % (40.0-70.0); PLATELET COUNT (AUTO) 376 K/uL (130-430); RED BLOOD CELL COUNT(AUTO) 3.99 MIL/uL (4.2-6.2); RED CELL DISTRIBUTION WIDTH 20.9 % (9.0-15.0); WHITE BLOOD COUNT (AUTO) 7.1 K/uL (4.8-10.8)
[2022-08-08 07:11] LABS: C-REACTIVE PROTEIN QUANT 3.1 mg/dL (0-0.5); CALCIUM 9.1 mg/dL (8.4-11.0); CREATININE 1.33 mg/dL (0.55-1.30); PHOSPHORUS 2.7 mg/dL (2.7-4.5)
[2022-08-08 09:03] LABS: ERYTHROCYTE SEDIMENTATION RATE 37 MM/HR (0-15)
[2022-08-08] MEDS: POLYETHYLENE GLYCOL 3350, 17 GM/ POWD.PACK PO SCH (09:40)
[2022-08-08] MEDS: PANTOPRAZOLE SODIUM 40 MG TAB PO SCH ×2 (09:40→21:45)
[2022-08-08] MEDS: MULTIVITS,CA,MINERALS/IRON/FA 1 TABLET PO SCH (09:40)
[2022-08-08] MEDS: FOLIC ACID 1 MG TABLET PO SCH (09:41)
[2022-08-08] MEDS: ASCORBIC ACID 500 MG TABLET PO SCH ×2 (09:42→21:42)
[2022-08-08] MEDS: BACLOFEN 10 MG TABLET PO SCH ×3 (09:42→21:38)
[2022-08-08] MEDS: POTASSIUM CHLORIDE 20 MEQ TAB.PRT.SR PO SCH ×2 (09:42→22:03)
[2022-08-08] MEDS: METOPROLOL TARTRATE 25 MG TABLET PO SCH ×2 (09:43→21:42)
[2022-08-08] MEDS: LACTULOSE 20 GM/30 ML UDC PO SCH ×2 (09:43→21:37)
[2022-08-08] MEDS: DOCUSATE SODIUM 100 MG CAPSULE PO SCH ×2 (09:44→21:38)
[2022-08-08] MEDS: BALSAM PERU/CASTOR OIL 56.7 GM OINT...G. TP SCH (09:46)
[2022-08-08] MEDS: FERROUS SULFATE 325 MG TABLET.DR PO SCH ×2 (12:05→17:23)
[2022-08-08] MEDS: SENNOSIDES 8.6 MG TABLET PO SCH (21:45)
[2022-08-08] MEDS: traZODone HCL 50 MG TABLET (DESYREL) PO SCH (22:04)
[2022-08-09] VITALS: BP_SYST 106
[2022-08-09 04:34] VITALS: BP_SYST 104
[2022-08-09] MEDS: METOCLOPRAMIDE HCL 10 MG TABLET PO SCH ×3 (06:40→16:44)
[2022-08-09] MEDS: SUCRALFATE 1 GM TABLET PO SCH ×4 (06:40→21:52)
[2022-08-09] MEDS: NORMAL SALINE 5 ML DISP.SYRIN IVF SCH ×3 (06:40→22:00)
[2022-08-09 07:40] LABS: CALCIUM 8.6 mg/dL (8.4-11.0); CREATININE 1.27 mg/dL (0.55-1.30); PHOSPHORUS 3.1 mg/dL (2.7-4.5)
[2022-08-09 07:42] LABS: BASOPHILS # (AUTO) 0.1 K/uL (0.0-0.2); BASOPHILS % (AUTO) 1.4 % (0.0-2.0); EOSINOPHILS # (AUTO) 1.2 K/uL (0.0-0.4); EOSINOPHILS % (AUTO) 19.3 % (0.0-4.0); HEMATOCRIT 36.6 % (36-54); LYMPHOCYTES # (AUTO) 0.9 K/uL (1.0-5.5); LYMPHOCYTES % (AUTO) 13.3 % (20.5-51.5); MEAN CORPUSCULAR HEMOGLOBIN 30 pg (27-31); MEAN CORPUSCULAR HGB CONC 33 % (32-36); MEAN CORPUSCULAR VOLUME 90 fL (79.0-98.0); MONOCYTES # (AUTO) 0.5 K/uL (0.0-1.0); MONOCYTES % (AUTO) 8.2 % (1.7-9.3); NEUTROPHILS # (AUTO) 3.7 K/uL (1.8-7.7); NEUTROPHILS % (AUTO) 57.8 % (40.0-70.0); PLATELET COUNT (AUTO) 329 K/uL (130-430); RED BLOOD CELL COUNT(AUTO) 4.06 MIL/uL (4.2-6.2); RED CELL DISTRIBUTION WIDTH 20.5 % (9.0-15.0); WHITE BLOOD COUNT (AUTO) 6.5 K/uL (4.8-10.8)
[2022-08-09 08:00] VITALS: BP_SYST 99
[2022-08-09 08:15] VITALS: BP_SYST 99
[2022-08-09] MEDS: FERROUS SULFATE 325 MG TABLET.DR PO SCH ×2 (09:00→18:24)
[2022-08-09] MEDS: LACTULOSE 20 GM/30 ML UDC PO SCH ×2 (09:52→21:44)
[2022-08-09] MEDS: POTASSIUM CHLORIDE 20 MEQ TAB.PRT.SR PO SCH ×2 (09:53→21:45)
[2022-08-09] MEDS: ASCORBIC ACID 500 MG TABLET PO SCH ×2 (09:54→21:44)
[2022-08-09] MEDS: BACLOFEN 10 MG TABLET PO SCH ×3 (09:54→21:49)
[2022-08-09] MEDS: MULTIVITS,CA,MINERALS/IRON/FA 1 TABLET PO SCH (09:54)
[2022-08-09] MEDS: DOCUSATE SODIUM 100 MG CAPSULE PO SCH ×2 (09:56→21:44)
[2022-08-09] MEDS: POLYETHYLENE GLYCOL 3350, 17 GM/ POWD.PACK PO SCH (09:56)
[2022-08-09] MEDS: PANTOPRAZOLE SODIUM 40 MG TAB PO SCH ×2 (09:57→21:46)
[2022-08-09] MEDS: FOLIC ACID 1 MG TABLET PO SCH (09:57)
[2022-08-09] MEDS: METOPROLOL TARTRATE 25 MG TABLET PO SCH ×2 (09:58→21:48)
[2022-08-09] MEDS: BALSAM PERU/CASTOR OIL 56.7 GM OINT...G. TP SCH (10:00)
[2022-08-09] MEDS: ACETAMINOPHEN 325 MG TABLET PO PRN (11:31)
[2022-08-09] MEDS: DIPHENHYDRAMINE HCL 50 MG CAPSULE PO PRN (11:37)
[2022-08-09 17:22] VITALS: BP_SYST 100
[2022-08-09 20:00] VITALS: BP_SYST 106
[2022-08-09] MEDS: SENNOSIDES 8.6 MG TABLET PO SCH (21:45)
[2022-08-09] MEDS: traZODone HCL 50 MG TABLET (DESYREL) PO SCH (21:53)
[2022-08-10] MEDS: METOCLOPRAMIDE HCL 10 MG TABLET PO SCH ×3 (06:30→16:54)
[2022-08-10] MEDS: SUCRALFATE 1 GM TABLET PO SCH ×4 (06:30→21:33)
[2022-08-10] MEDS: NORMAL SALINE 5 ML DISP.SYRIN IVF SCH ×3 (06:31→21:35)
[2022-08-10 08:24] LABS: BASOPHILS % (AUTO) 0.5 % (0.0-2.0); EOSINOPHILS # (AUTO) 1.2 K/uL (0.0-0.4); EOSINOPHILS % (AUTO) 16.5 % (0.0-4.0); HEMATOCRIT 35.4 % (36-54); HEMOGLOBIN 11.5 g/dL (14.0-18.0); LYMPHOCYTES # (AUTO) 0.6 K/uL (1.0-5.5); MEAN CORPUSCULAR HEMOGLOBIN 30 pg (27-31); MEAN CORPUSCULAR HGB CONC 33 % (32-36); MEAN CORPUSCULAR VOLUME 91 fL (79.0-98.0); MONOCYTES # (AUTO) 0.3 K/uL (0.0-1.0); MONOCYTES % (AUTO) 4.2 % (1.7-9.3); NEUTROPHILS % (AUTO) 69.8 % (40.0-70.0); PLATELET COUNT (AUTO) 328 K/uL (130-430); RED BLOOD CELL COUNT(AUTO) 3.89 MIL/uL (4.2-6.2); RED CELL DISTRIBUTION WIDTH 21.2 % (9.0-15.0); WHITE BLOOD COUNT (AUTO) 7.1 K/uL (4.8-10.8)
[2022-08-10 08:33] LABS: CALCIUM 8.5 mg/dL (8.4-11.0); CREATININE 1.6 mg/dL (0.55-1.30); PHOSPHORUS 3.1 mg/dL (2.7-4.5); TOTAL BILIRUBIN 0.2 mg/dL (0.0-1.0)
[2022-08-10] MEDS: LACTULOSE 20 GM/30 ML UDC PO SCH ×2 (10:08→21:34)
[2022-08-10] MEDS: POLYETHYLENE GLYCOL 3350, 17 GM/ POWD.PACK PO SCH (10:08)
[2022-08-10] MEDS: MULTIVITS,CA,MINERALS/IRON/FA 1 TABLET PO SCH (10:09)
[2022-08-10] MEDS: FERROUS SULFATE 325 MG TABLET.DR PO SCH ×2 (10:09→16:54)
[2022-08-10] MEDS: ASCORBIC ACID 500 MG TABLET PO SCH ×2 (10:09→21:33)
[2022-08-10] MEDS: DOCUSATE SODIUM 100 MG CAPSULE PO SCH ×2 (10:09→21:31)
[2022-08-10] MEDS: FOLIC ACID 1 MG TABLET PO SCH (10:09)
[2022-08-10] MEDS: POTASSIUM CHLORIDE 20 MEQ TAB.PRT.SR PO SCH ×2 (10:09→21:33)
[2022-08-10] MEDS: BACLOFEN 10 MG TABLET PO SCH ×3 (10:10→21:33)
[2022-08-10] MEDS: PANTOPRAZOLE SODIUM 40 MG TAB PO SCH ×2 (10:10→21:33)
[2022-08-10] MEDS: METOPROLOL TARTRATE 25 MG TABLET PO SCH ×2 (10:14→21:32)
[2022-08-10] MEDS: BALSAM PERU/CASTOR OIL 56.7 GM OINT...G. TP SCH (10:15)
[2022-08-10] MEDS ORDERED: NACL 0.9% 1,000 ML IV SCH (18:45)
[2022-08-10] MEDS: SENNOSIDES 8.6 MG TABLET PO SCH (21:30)
[2022-08-10] MEDS: traZODone HCL 50 MG TABLET (DESYREL) PO SCH (21:31)
[2022-08-10] MEDS: ACETAMINOPHEN 325 MG TABLET PO PRN (21:31)
[2022-08-10] MEDS: DIPHENHYDRAMINE HCL 50 MG CAPSULE PO PRN (21:33)
[2022-08-11] MEDS: METOCLOPRAMIDE HCL 10 MG TABLET PO SCH ×2 (06:06→10:55)
[2022-08-11] MEDS: SUCRALFATE 1 GM TABLET PO SCH ×2 (06:06→10:55)
[2022-08-11] MEDS: NORMAL SALINE 5 ML DISP.SYRIN IVF SCH (06:07)
[2022-08-11 08:00] VITALS: BP_SYST 105
[2022-08-11 08:36] LABS: BASOPHILS # (AUTO) 0.1 K/uL (0.0-0.2); BASOPHILS % (AUTO) 1.3 % (0.0-2.0); EOSINOPHILS % (AUTO) 19.4 % (0.0-4.0); HEMOGLOBIN 11.6 g/dL (14.0-18.0); LYMPHOCYTES # (AUTO) 0.5 K/uL (1.0-5.5); LYMPHOCYTES % (AUTO) 10.1 % (20.5-51.5); MEAN CORPUSCULAR HEMOGLOBIN 29 pg (27-31); MEAN CORPUSCULAR HGB CONC 32 % (32-36); MEAN CORPUSCULAR VOLUME 91 fL (79.0-98.0); MONOCYTES # (AUTO) 0.5 K/uL (0.0-1.0); MONOCYTES % (AUTO) 10.1 % (1.7-9.3); NEUTROPHILS # (AUTO) 3.1 K/uL (1.8-7.7); NEUTROPHILS % (AUTO) 59.1 % (40.0-70.0); PLATELET COUNT (AUTO) 304 K/uL (130-430); RED BLOOD CELL COUNT(AUTO) 3.98 MIL/uL (4.2-6.2); RED CELL DISTRIBUTION WIDTH 20.7 % (9.0-15.0)
[2022-08-11 09:04] LABS: WHITE BLOOD COUNT (AUTO) 5.3 K/uL (4.8-10.8)
[2022-08-11 09:59] LABS: CALCIUM 8.7 mg/dL (8.4-11.0); CREATININE 1.28 mg/dL (0.55-1.30)
[2022-08-11] MEDS: DOCUSATE SODIUM 100 MG CAPSULE PO SCH (10:47)
[2022-08-11] MEDS: FERROUS SULFATE 325 MG TABLET.DR PO SCH (10:47)
[2022-08-11] MEDS: LACTULOSE 20 GM/30 ML UDC PO SCH (10:47)
[2022-08-11] MEDS: PANTOPRAZOLE SODIUM 40 MG TAB PO SCH (10:47)
[2022-08-11] MEDS: BACLOFEN 10 MG TABLET PO SCH (10:47)
[2022-08-11] MEDS: POLYETHYLENE GLYCOL 3350, 17 GM/ POWD.PACK PO SCH (10:47)
[2022-08-11] MEDS: MULTIVITS,CA,MINERALS/IRON/FA 1 TABLET PO SCH (10:48)
[2022-08-11] MEDS: FOLIC ACID 1 MG TABLET PO SCH (10:48)
[2022-08-11] MEDS: POTASSIUM CHLORIDE 20 MEQ TAB.PRT.SR PO SCH (10:48)
[2022-08-11] MEDS: METOPROLOL TARTRATE 25 MG TABLET PO SCH (10:49)
[2022-08-11] MEDS: BALSAM PERU/CASTOR OIL 56.7 GM OINT...G. TP SCH (10:50)
[2022-08-11] MEDS: ASCORBIC ACID 500 MG TABLET PO SCH (10:54)
[2022-08-11 11:40] VITALS: BP_SYST 119
[2022-08-11 11:57] VITALS: BP_SYST 105
[2022-08-21] MEDS ORDERED: ZOSPM2 IV (10:29)
== END 2022-08-11 14:15 | DRG 871 ==
LOC: SED 14:45 → SMU 19:01
PROVIDERS: ADMIT Preventive Medicine Preventive Medicine/Occupational Environmental Medicine; ATTEND Preventive Medicine Preventive Medicine/Occupational Environmental Medicine
PROC: 05HY33Z Insertion of Infusion Device into Upper Vein, Percutaneous Approach (ICD-10-PCS; principal; 2022-08-07)
PROC: B54MZZA Ultrasonography of Right Upper Extremity Veins, Guidance (ICD-10-PCS; 2022-08-07)
DX: A41.9 Sepsis, unspecified organism (principal); N17.0 Acute kidney failure with tubular necrosis; I47.1 Supraventricular tachycardia; N13.6 Pyonephrosis; E87.0 Hyperosmolality and hypernatremia; B96.20 Unspecified Escherichia coli [E. coli] as the cause of diseases classified elsewhere; E83.39 Other disorders of phosphorus metabolism; D75.839 Thrombocytosis, unspecified; E83.41 Hypermagnesemia; E88.09 Other disorders of plasma-protein metabolism, not elsewhere classified; G89.4 Chronic pain syndrome; K21.9 Gastro-esophageal reflux disease without esophagitis; N99.528 Other complication of incontinent external stoma of urinary tract; Y83.8 Other surgical procedures as the cause of abnormal reaction of the patient, or of later complication, without mention of misadventure at the time of the procedure; Y82.8 Other medical devices associated with adverse incidents; B96.89 Other specified bacterial agents as the cause of diseases classified elsewhere; R73.9 Hyperglycemia, unspecified; G80.9 Cerebral palsy, unspecified; K56.41 Fecal impaction; E83.51 Hypocalcemia; E87.6 Hypokalemia; K57.90 Diverticulosis of intestine, part unspecified, without perforation or abscess without bleeding; N31.9 Neuromuscular dysfunction of bladder, unspecified; E83.52 Hypercalcemia; I12.9 Hypertensive chronic kidney disease with stage 1 through stage 4 chronic kidney disease, or unspecified chronic kidney disease; N18.9 Chronic kidney disease, unspecified; Z20.822 Contact with and (suspected) exposure to COVID-19; M85.80 Other specified disorders of bone density and structure, unspecified site; K44.9 Diaphragmatic hernia without obstruction or gangrene; D64.9 Anemia, unspecified; Z88.1 Allergy status to other antibiotic agents; Z88.8 Allergy status to other drugs, medicaments and biological substances; Z79.899 Other long term (current) drug therapy; Z79.891 Long term (current) use of opiate analgesic; Y92.89 Other specified places as the place of occurrence of the external cause; Q65.89 Other specified congenital deformities of hip; Z87.11 Personal history of peptic ulcer disease; Z87.440 Personal history of urinary (tract) infections; Z87.442 Personal history of urinary calculi; Z90.49 Acquired absence of other specified parts of digestive tract
CPT/HCPCS: 36415; 71045; 74018; 76376; 80048; 80053; 81000; 83605; 83735; 84100; 85025; 85610-TC; 85651-TC; 85730-TC; 86140; 87040; 87081; 87086; 99285; C1751; J0696; J1335; J2405; J7042; J7050; J7060; J8597; Q0163

== ENCOUNTER 2023-04-07 15:32 | Inpatient (IN) | payer OTHER, MEDICAID ==
[~2023-04-07] VITALS: Ht 162.6 cm; Wt 41.7 kg
[~2023-04-07 15:32] MED LIST changes: -ACET325T PO; -BACL10TA PO; -DOCU-144 PO; -ERTA1VIA IJ; -HYDR-3917 PO; +HYDR-3927 PO; +METO-290 PO; -METO5TAB86 PO; +MULT-1193 PO; +SUCR1TAB2 PO; -ZINC100T2 PO; +ZINC220T3 PO; +ZOSPM2 IV
[2023-04-07 15:35] VITALS: BP_SYST 119; PULSE 72; RESP 19; TEMP 98; O2SAT 99
[2023-04-07] MEDS ORDERED: NACL 0.9% 1,000 ML IV ONE (16:45)
[2023-04-07] MEDS ORDERED: OMEG-158 PO (16:49)
[2023-04-07] MEDS ORDERED: MIDO5TAB4 PO (16:49)
[2023-04-07] MEDS ORDERED: ARGI1POW13 PO (16:49)
[2023-04-07] MEDS ORDERED: NITSL SL (16:49)
[2023-04-07] MEDS ORDERED: GABA-529 PO (16:49)
[2023-04-07] MEDS ORDERED: AMIN30LI2 PO (16:49)
[2023-04-07] MEDS ORDERED: ACET325T PO (16:49)
[2023-04-07] MEDS ORDERED: LOPE2CAP PO (16:49)
[2023-04-07] MEDS ORDERED: THIA50TA10 PO (16:49)
[2023-04-07] MEDS ORDERED: SIME80TA15 PO (16:49)
[2023-04-07] MEDS ORDERED: MEGE20TA3 PO (16:49)
[2023-04-07] MEDS ORDERED: CRAN450T9 PO (16:49)
[2023-04-07] MEDS ORDERED: CALC355O18 PO (16:49)
[2023-04-07] MEDS ORDERED: CALC-823 PO (16:49)
[2023-04-07] MEDS ORDERED: MORP15TA PO (16:49)
[2023-04-07] MEDS ORDERED: DOCU-144 PO (16:49)
[2023-04-07 17:28] LABS: BASOPHILS # (AUTO) 0.1 K/uL (0.0-0.2); EOSINOPHILS # (AUTO) 0.4 K/uL (0.0-0.4); EOSINOPHILS % (AUTO) 5.4 % (0.0-4.0); HEMATOCRIT 26.4 % (36-54); HEMOGLOBIN 8.2 g/dL (14.0-18.0); LYMPHOCYTES # (AUTO) 0.7 K/uL (1.0-5.5); LYMPHOCYTES % (AUTO) 10.7 % (20.5-51.5); MEAN CORPUSCULAR HEMOGLOBIN 22 pg (27-31); MEAN CORPUSCULAR HGB CONC 31 % (32-36); MEAN CORPUSCULAR VOLUME 71 fL (79.0-98.0); MONOCYTES # (AUTO) 0.7 K/uL (0.0-1.0); MONOCYTES % (AUTO) 9.7 % (1.7-9.3); NEUTROPHILS # (AUTO) 4.9 K/uL (1.8-7.7); NEUTROPHILS % (AUTO) 73.2 % (40.0-70.0); PLATELET COUNT (AUTO) 484 K/uL (130-430); RED BLOOD CELL COUNT(AUTO) 3.71 MIL/uL (4.2-6.2); RED CELL DISTRIBUTION WIDTH 19.6 % (9.0-15.0); WHITE BLOOD COUNT (AUTO) 6.7 K/uL (4.8-10.8)
[2023-04-07 18:03] LABS: ALBUMIN 2.3 g/dL (3.4-4.8); CALCIUM 8.3 mg/dL (8.4-11.0); CREATININE 0.97 mg/dL (0.55-1.30); POTASSIUM 3.4 mmol/L (3.5-5.1); TOTAL BILIRUBIN 0.2 mg/dL (0.0-1.0); TOTAL PROTEIN, SERUM 7.5 g/dL (6.4-8.3)
[2023-04-07 18:48] LABS: ANISOCYTOSIS 1+; HYPOCHROMASIA 2+; OVALOCYTES MODERATE; TEAR DROP CELLS FEW
[2023-04-07 21:10] LABS: BILIRUBIN,URINE NEGATIVE (NEGATIVE); BLOOD, URINE 2+ (NEGATIVE); CLARITY/URINE SL CLOUDY (CLEAR); COLOR,URINE YELLOW (YELLOW); GLUCOSE,URINE NEGATIVE (NEGATIVE); KETONES,URINE NEGATIVE (NEGATIVE); LEUKOCYTE ESTERASE ,URINE 3+ (NEGATIVE); NITRITE, URINE NEGATIVE (NEGATIVE); PROTEIN URINE 2+ (NEGATIVE); UROBILINOGEN,URINE 0.2 (0.2-1.0)
[2023-04-07 22:06] VITALS: BP_SYST 107; PULSE 81; RESP 19; TEMP 97.3; O2SAT 95
[2023-04-07 22:23] LABS: BACTERIA,URINE MANY /HPF (None Seen); WBC,URINE 80-100 /HPF (0-3)
[2023-04-07 23:06] VITALS: BP_SYST 107; PULSE 81; RESP 19; TEMP 97.3; O2SAT 95
[2023-04-08] VITALS (8 sets, daily range): BP systolic 104–141; PULSE 64–98; RESP 16–20; TEMP 96.9–97.9; O2SAT 96–98
[2023-04-08] MEDS ORDERED: HYDROcodone/ACETAMIN 5-325 MG TAB (NORCO/ VICODIN) PO PRN (00:45)
[2023-04-08] MEDS ORDERED: ACETAMINOPHEN 325 MG TABLET PO PRN ×2 (00:45→11:45)
[2023-04-08] MEDS ORDERED: HYDROcodone/ACETAMIN 10-325 MG TAB ONE (03:11)
[2023-04-08] MEDS: HYDROcodone/ACETAMIN 10-325 MG TAB PO PRN ×3 (03:12→22:28)
[2023-04-08] MEDS ORDERED: HYDROcodone/ACETAMIN 10-325 MG TAB PO PRN (11:45)
[2023-04-08] MEDS ORDERED: LORazepam 2 MG/ML VIAL IVP PRN (11:45)
[2023-04-08] MEDS ORDERED: LOPERAMIDE HCL 2 MG CAPSULE PO PRN (11:45)
[2023-04-08] MEDS ORDERED: BISACODYL 10 MG/SUPPOSITORY RC PRN (11:45)
[2023-04-08] MEDS ORDERED: MIDODRINE HCL 5 MG TABLET (PROAMATINE) PO PRN (11:45)
[2023-04-08] MEDS ORDERED: NALOXONE HCL 0.4 MG/ML AMP (NARCAN) IVP PRN (11:45)
[2023-04-08] MEDS ORDERED: SIMETHICONE 80 MG TAB.CHEW PO PRN (11:45)
[2023-04-08] MEDS ORDERED: NITROGLYCERIN 0.4 MG TAB.SUBL SL PRN (11:45)
[2023-04-08] MEDS ORDERED: NON-FORMULARY MEDICATION (Arginine/Ascorbate Sod/Vite AC (Arginaid Powder) 1 EACH) PO SCH (11:45)
[2023-04-08] MEDS ORDERED: traMADol HCL HCL 50 MG TABLET (ULTRAM) PO PRN (11:45)
[2023-04-08] MEDS ORDERED: ONDANSETRON HCL 4 MG/2 ML VIAL IVP PRN (11:45)
[2023-04-08] MEDS ORDERED: DEX IS PIGGYBACK IV SCH (14:00)
[2023-04-08] MEDS ORDERED: TAZOBACTAM IV SCH (14:00)
[2023-04-08] MEDS ORDERED: PIPERACILLIN IV SCH (14:00)
[2023-04-08] MEDS ORDERED: FOLIC ACID 1 MG TABLET PO ONE (18:15)
[2023-04-08] MEDS ORDERED: LACTULOSE 20 GM/30 ML UDC PO PRN (19:15)
[2023-04-08] MEDS ORDERED: MAG-AL HYDROX/SIMETH 30 ML UDC PO PRN (19:15)
[2023-04-08] MEDS ORDERED: THIAMINE HCL 100 MG TABLET PO ONE (20:00)
[2023-04-08] MEDS ORDERED: MULTIVITS,CA,MINERALS/IRON/FA 1 TABLET PO ONE (20:00)
[2023-04-08] MEDS ORDERED: OMEGA-3/DHA/EPA/FISH OIL 1 GM CAPSULE PO ONE (20:00)
[2023-04-08] MEDS ORDERED: CALCIUM CARBONATE/VITAMIN D3 1 TAB TABLET PO ONE (20:00)
[2023-04-08] MEDS ORDERED: NON-FORMULARY MEDICATION (Amino Acids/Protein Hydrolys (Pro-Stat Liquid) 30 ML) PO SCH (21:00)
[2023-04-08] MEDS: DOCUSATE SODIUM 100 MG CAPSULE PO SCH ×2 (21:00→22:04)
[2023-04-08] MEDS: traZODone HCL 50 MG TABLET (DESYREL) PO SCH (21:00)
[2023-04-08] MEDS: ASCORBIC ACID 500 MG TABLET PO SCH (22:03)
[2023-04-08] MEDS: GABAPENTIN 100 MG CAPSULE PO SCH (22:03)
[2023-04-08] MEDS: METOPROLOL TARTRATE 25 MG TABLET PO SCH (22:03)
[2023-04-08] MEDS: METOCLOPRAMIDE HCL 10 MG TABLET PO SCH (22:04)
[2023-04-08] MEDS: ERTAPENEM SODIUM 1 GM in NS 50 ML IV SCH (22:06)
[2023-04-08] MEDS: SENNOSIDES 8.6 MG TABLET PO SCH (22:28)
[2023-04-08] MEDS: PANTOPRAZOLE SODIUM 40 MG TAB PO SCH (22:29)
[2023-04-08] MEDS: SUCRALFATE 1 GM TABLET PO SCH (22:33)
[2023-04-09] VITALS: BP_SYST 129; PULSE 90; RESP 16; TEMP 98; O2SAT 96
[2023-04-09] MEDS: MORPHINE SULFATE 30 MG Immediate Release TABLET PO PRN ×2 (02:05→11:21)
[2023-04-09 05:33] LABS: BASOPHILS # (AUTO) 0.1 K/uL (0.0-0.2); BASOPHILS % (AUTO) 1.1 % (0.0-2.0); EOSINOPHILS # (AUTO) 0.4 K/uL (0.0-0.4); EOSINOPHILS % (AUTO) 5.2 % (0.0-4.0); HEMATOCRIT 26.4 % (36-54); HEMOGLOBIN 8.1 g/dL (14.0-18.0); LYMPHOCYTES # (AUTO) 0.9 K/uL (1.0-5.5); LYMPHOCYTES % (AUTO) 10.9 % (20.5-51.5); MEAN CORPUSCULAR HEMOGLOBIN 22 pg (27-31); MEAN CORPUSCULAR HGB CONC 31 % (32-36); MEAN CORPUSCULAR VOLUME 72 fL (79.0-98.0); MONOCYTES # (AUTO) 0.7 K/uL (0.0-1.0); MONOCYTES % (AUTO) 8.7 % (1.7-9.3); NEUTROPHILS % (AUTO) 74.1 % (40.0-70.0); PLATELET COUNT (AUTO) 506 K/uL (130-430); RED BLOOD CELL COUNT(AUTO) 3.69 MIL/uL (4.2-6.2); RED CELL DISTRIBUTION WIDTH 19.3 % (9.0-15.0); WHITE BLOOD COUNT (AUTO) 8.1 K/uL (4.8-10.8)
[2023-04-09 05:49] LABS: ALBUMIN 2.3 g/dL (3.4-4.8); CALCIUM 8.5 mg/dL (8.4-11.0); CREATININE 0.92 mg/dL (0.55-1.30); PHOSPHORUS 3.7 mg/dL (2.7-4.5); POTASSIUM 3.9 mmol/L (3.5-5.1); TOTAL BILIRUBIN 0.2 mg/dL (0.0-1.0); TOTAL PROTEIN, SERUM 7.7 g/dL (6.4-8.3)
[2023-04-09] MEDS: SUCRALFATE 1 GM TABLET PO SCH ×4 (07:00→22:24)
[2023-04-09 08:00] VITALS: BP_SYST 121; PULSE 93; RESP 18; TEMP 97.2; O2SAT 97
[2023-04-09] MEDS: FERROUS SULFATE 325 MG TABLET.DR PO SCH ×2 (08:00→17:27)
[2023-04-09] MEDS ORDERED: NON-FORMULARY MEDICATION (Cranberry Fruit (Cranberry) 1 TAB) PO SCH (09:00)
[2023-04-09] MEDS: DOCUSATE SODIUM 100 MG CAPSULE PO SCH ×2 (09:00→21:00)
[2023-04-09] MEDS: POLYETHYLENE GLYCOL 3350, 17 GM/ POWD.PACK PO SCH (09:00)
[2023-04-09] MEDS: MULTIVITS,CA,MINERALS/IRON/FA 1 TABLET PO SCH (11:17)
[2023-04-09] MEDS: THIAMINE HCL 100 MG TABLET PO SCH (11:17)
[2023-04-09] MEDS: ASCORBIC ACID 500 MG TABLET PO SCH ×2 (11:17→21:00)
[2023-04-09] MEDS: CALCIUM CARBONATE/VITAMIN D3 1 TAB TABLET PO SCH (11:18)
[2023-04-09] MEDS: MEGESTROL ACETATE 400 MG/10 ML UDC PO SCH (11:18)
[2023-04-09] MEDS: GABAPENTIN 100 MG CAPSULE PO SCH ×3 (11:19→22:24)
[2023-04-09] MEDS: PANTOPRAZOLE SODIUM 40 MG TAB PO SCH ×2 (11:19→22:24)
[2023-04-09] MEDS: OMEGA-3/DHA/EPA/FISH OIL 1 GM CAPSULE PO SCH (11:19)
[2023-04-09] MEDS: METOCLOPRAMIDE HCL 10 MG TABLET PO SCH ×3 (11:20→22:24)
[2023-04-09] MEDS: FOLIC ACID 1 MG TABLET PO SCH (11:20)
[2023-04-09] MEDS: METOPROLOL TARTRATE 25 MG TABLET PO SCH ×2 (11:20→21:00)
[2023-04-09 15:57] VITALS: BP_SYST 116; PULSE 65; RESP 17; TEMP 96.9; O2SAT 96
[2023-04-09] MEDS: HYDROcodone/ACETAMIN 10-325 MG TAB PO PRN (16:24)
[2023-04-09] MEDS ORDERED: MENTHOL/ZINC OXIDE 113 GM OINT. TP PRN (17:15)
[2023-04-09] MEDS: ERTAPENEM SODIUM 1 GM in NS 50 ML IV SCH (17:28)
[2023-04-09 19:00] VITALS: BP_SYST 104; PULSE 86; RESP 15; TEMP 96.6; O2SAT 95
[2023-04-09] MEDS: SENNOSIDES 8.6 MG TABLET PO SCH (21:00)
[2023-04-09] MEDS: traZODone HCL 50 MG TABLET (DESYREL) PO SCH (21:00)
[2023-04-10] VITALS (7 sets, daily range): BP systolic 89–112; PULSE 69–89; RESP 14–18; TEMP 96.6–98.2; O2SAT 95–97
[2023-04-10 07:35] LABS: BASOPHILS # (AUTO) 0.1 K/uL (0.0-0.2); BASOPHILS % (AUTO) 0.6 % (0.0-2.0); EOSINOPHILS # (AUTO) 0.4 K/uL (0.0-0.4); EOSINOPHILS % (AUTO) 3.9 % (0.0-4.0); HEMATOCRIT 27.6 % (36-54); HEMOGLOBIN 8.4 g/dL (14.0-18.0); LYMPHOCYTES # (AUTO) 1.1 K/uL (1.0-5.5); LYMPHOCYTES % (AUTO) 10.9 % (20.5-51.5); MEAN CORPUSCULAR HEMOGLOBIN 22 pg (27-31); MEAN CORPUSCULAR HGB CONC 30 % (32-36); MEAN CORPUSCULAR VOLUME 73 fL (79.0-98.0); MONOCYTES % (AUTO) 10.3 % (1.7-9.3); NEUTROPHILS # (AUTO) 7.3 K/uL (1.8-7.7); NEUTROPHILS % (AUTO) 74.3 % (40.0-70.0); PLATELET COUNT (AUTO) 425 K/uL (130-430); RED CELL DISTRIBUTION WIDTH 19.4 % (9.0-15.0); WHITE BLOOD COUNT (AUTO) 9.8 K/uL (4.8-10.8)
[2023-04-10 07:55] LABS: ERYTHROCYTE SEDIMENTATION RATE 108 MM/HR (0-15)
[2023-04-10 08:10] LABS: CALCIUM 8.9 mg/dL (8.4-11.0); CREATININE 1.09 mg/dL (0.55-1.30); POTASSIUM 3.8 mmol/L (3.5-5.1)
[2023-04-10] MEDS: POLYETHYLENE GLYCOL 3350, 17 GM/ POWD.PACK PO SCH (09:00)
[2023-04-10] MEDS: DOCUSATE SODIUM 100 MG CAPSULE PO SCH ×2 (09:00→21:00)
[2023-04-10] MEDS: FERROUS SULFATE 325 MG TABLET.DR PO SCH ×2 (09:22→17:50)
[2023-04-10] MEDS: CALCIUM CARBONATE/VITAMIN D3 1 TAB TABLET PO SCH (09:22)
[2023-04-10] MEDS: ASCORBIC ACID 500 MG TABLET PO SCH ×2 (09:23→21:41)
[2023-04-10] MEDS: FOLIC ACID 1 MG TABLET PO SCH (09:23)
[2023-04-10] MEDS: OMEGA-3/DHA/EPA/FISH OIL 1 GM CAPSULE PO SCH (09:30)
[2023-04-10] MEDS: SUCRALFATE 1 GM TABLET PO SCH ×4 (09:30→21:41)
[2023-04-10] MEDS: MEGESTROL ACETATE 400 MG/10 ML UDC PO SCH (09:30)
[2023-04-10] MEDS: METOPROLOL TARTRATE 25 MG TABLET PO SCH ×2 (09:31→21:42)
[2023-04-10] MEDS: GABAPENTIN 100 MG CAPSULE PO SCH ×3 (09:32→21:41)
[2023-04-10] MEDS: PANTOPRAZOLE SODIUM 40 MG TAB PO SCH ×2 (09:32→21:40)
[2023-04-10] MEDS: MULTIVITS,CA,MINERALS/IRON/FA 1 TABLET PO SCH (09:33)
[2023-04-10] MEDS: METOCLOPRAMIDE HCL 10 MG TABLET PO SCH ×3 (09:33→21:40)
[2023-04-10] MEDS: THIAMINE HCL 100 MG TABLET PO SCH (09:38)
[2023-04-10] MEDS: MORPHINE SULFATE 30 MG Immediate Release TABLET PO PRN ×2 (10:53→17:51)
[2023-04-10] MEDS: BALSAM PERU/CASTOR OIL 56.7 GM OINT...G. TP SCH (18:30)
[2023-04-10] MEDS: HONEY WOUND DRESSING 1 EACH TP SCH (18:30)
[2023-04-10] MEDS: ERTAPENEM SODIUM 1 GM in NS 50 ML IV SCH (19:16)
[2023-04-10] MEDS: traZODone HCL 50 MG TABLET (DESYREL) PO SCH (21:40)
[2023-04-10] MEDS: SENNOSIDES 8.6 MG TABLET PO SCH (21:41)
[2023-04-11] VITALS (8 sets, daily range): BP systolic 93–118; PULSE 62–74; RESP 12–20; TEMP 96.8–97.8; O2SAT 94–96
[2023-04-11] MEDS: MORPHINE SULFATE 30 MG Immediate Release TABLET PO PRN ×2 (00:41→14:37)
[2023-04-11] MEDS: SUCRALFATE 1 GM TABLET PO SCH ×4 (06:11→20:54)
[2023-04-11 08:51] LABS: BASOPHILS # (AUTO) 0.1 K/uL (0.0-0.2); BASOPHILS % (AUTO) 0.9 % (0.0-2.0); EOSINOPHILS # (AUTO) 0.4 K/uL (0.0-0.4); EOSINOPHILS % (AUTO) 4.3 % (0.0-4.0); HEMATOCRIT 27.3 % (36-54); HEMOGLOBIN 8.3 g/dL (14.0-18.0); LYMPHOCYTES # (AUTO) 0.9 K/uL (1.0-5.5); LYMPHOCYTES % (AUTO) 9.7 % (20.5-51.5); MEAN CORPUSCULAR HEMOGLOBIN 22 pg (27-31); MEAN CORPUSCULAR HGB CONC 30 % (32-36); MEAN CORPUSCULAR VOLUME 71 fL (79.0-98.0); MONOCYTES # (AUTO) 0.7 K/uL (0.0-1.0); MONOCYTES % (AUTO) 7.9 % (1.7-9.3); NEUTROPHILS # (AUTO) 6.9 K/uL (1.8-7.7); NEUTROPHILS % (AUTO) 77.2 % (40.0-70.0); PLATELET COUNT (AUTO) 499 K/uL (130-430); RED BLOOD CELL COUNT(AUTO) 3.83 MIL/uL (4.2-6.2); RED CELL DISTRIBUTION WIDTH 19.8 % (9.0-15.0); WHITE BLOOD COUNT (AUTO) 8.9 K/uL (4.8-10.8)
[2023-04-11] MEDS: PANTOPRAZOLE SODIUM 40 MG TAB PO SCH ×2 (09:02→20:59)
[2023-04-11] MEDS: MEGESTROL ACETATE 400 MG/10 ML UDC PO SCH (09:02)
[2023-04-11] MEDS: CALCIUM CARBONATE/VITAMIN D3 1 TAB TABLET PO SCH (09:03)
[2023-04-11] MEDS: ASCORBIC ACID 500 MG TABLET PO SCH ×2 (09:05→20:55)
[2023-04-11] MEDS: FOLIC ACID 1 MG TABLET PO SCH (09:05)
[2023-04-11] MEDS: DOCUSATE SODIUM 100 MG CAPSULE PO SCH ×2 (09:06→20:54)
[2023-04-11] MEDS: METOCLOPRAMIDE HCL 10 MG TABLET PO SCH ×3 (09:07→20:55)
[2023-04-11] MEDS: THIAMINE HCL 100 MG TABLET PO SCH (09:07)
[2023-04-11] MEDS: OMEGA-3/DHA/EPA/FISH OIL 1 GM CAPSULE PO SCH (09:08)
[2023-04-11] MEDS: MULTIVITS,CA,MINERALS/IRON/FA 1 TABLET PO SCH (09:08)
[2023-04-11] MEDS: POLYETHYLENE GLYCOL 3350, 17 GM/ POWD.PACK PO SCH (09:08)
[2023-04-11] MEDS: METOPROLOL TARTRATE 25 MG TABLET PO SCH ×2 (09:08→20:54)
[2023-04-11] MEDS: FERROUS SULFATE 325 MG TABLET.DR PO SCH ×2 (09:09→17:13)
[2023-04-11] MEDS: BALSAM PERU/CASTOR OIL 56.7 GM OINT...G. TP SCH (09:13)
[2023-04-11] MEDS: HONEY WOUND DRESSING 1 EACH TP SCH (09:13)
[2023-04-11 09:14] LABS: ERYTHROCYTE SEDIMENTATION RATE 116 MM/HR (0-15)
[2023-04-11] MEDS: GABAPENTIN 100 MG CAPSULE PO SCH ×3 (09:21→20:54)
[2023-04-11 09:25] LABS: CALCIUM 9.1 mg/dL (8.4-11.0); CREATININE 1.24 mg/dL (0.55-1.30); POTASSIUM 3.7 mmol/L (3.5-5.1)
[2023-04-11] MEDS: ERTAPENEM SODIUM 1 GM in NS 50 ML IV SCH (18:00)
[2023-04-11] MEDS: SENNOSIDES 8.6 MG TABLET PO SCH (20:54)
[2023-04-11] MEDS: traZODone HCL 50 MG TABLET (DESYREL) PO SCH (20:55)
[2023-04-12 03:35] VITALS: BP_SYST 122; PULSE 71; RESP 18; O2SAT 95
[2023-04-12] MEDS: MORPHINE SULFATE 30 MG Immediate Release TABLET PO PRN (04:35)
[2023-04-12] MEDS: SUCRALFATE 1 GM TABLET PO SCH ×4 (06:05→21:40)
[2023-04-12 07:02] LABS: BASOPHILS # (AUTO) 0.1 K/uL (0.0-0.2); BASOPHILS % (AUTO) 0.8 % (0.0-2.0); EOSINOPHILS # (AUTO) 0.4 K/uL (0.0-0.4); EOSINOPHILS % (AUTO) 4.1 % (0.0-4.0); HEMATOCRIT 29.9 % (36-54); LYMPHOCYTES # (AUTO) 1.2 K/uL (1.0-5.5); LYMPHOCYTES % (AUTO) 12.9 % (20.5-51.5); MEAN CORPUSCULAR HEMOGLOBIN 22 pg (27-31); MEAN CORPUSCULAR HGB CONC 30 % (32-36); MEAN CORPUSCULAR VOLUME 72 fL (79.0-98.0); MONOCYTES # (AUTO) 0.8 K/uL (0.0-1.0); MONOCYTES % (AUTO) 8.6 % (1.7-9.3); NEUTROPHILS # (AUTO) 6.8 K/uL (1.8-7.7); NEUTROPHILS % (AUTO) 73.6 % (40.0-70.0); PLATELET COUNT (AUTO) 428 K/uL (130-430); RED BLOOD CELL COUNT(AUTO) 4.16 MIL/uL (4.2-6.2); RED CELL DISTRIBUTION WIDTH 20.3 % (9.0-15.0); WHITE BLOOD COUNT (AUTO) 9.2 K/uL (4.8-10.8)
[2023-04-12 07:15] LABS: ERYTHROCYTE SEDIMENTATION RATE 104 MM/HR (0-15)
[2023-04-12 07:24] LABS: ALBUMIN 2.6 g/dL (3.4-4.8); CALCIUM 9.1 mg/dL (8.4-11.0); CREATININE 1.01 mg/dL (0.55-1.30); POTASSIUM 4.1 mmol/L (3.5-5.1); TOTAL BILIRUBIN 0.2 mg/dL (0.0-1.0); TOTAL PROTEIN, SERUM 7.8 g/dL (6.4-8.3)
[2023-04-12 08:00] VITALS: BP_SYST 103; PULSE 91; RESP 18; TEMP 97.6; O2SAT 92
[2023-04-12] MEDS: FERROUS SULFATE 325 MG TABLET.DR PO SCH ×2 (08:00→18:38)
[2023-04-12] MEDS: PANTOPRAZOLE SODIUM 40 MG TAB PO SCH ×2 (09:00→21:39)
[2023-04-12] MEDS: MEGESTROL ACETATE 400 MG/10 ML UDC PO SCH (09:00)
[2023-04-12] MEDS: GABAPENTIN 100 MG CAPSULE PO SCH ×3 (09:00→21:39)
[2023-04-12] MEDS: THIAMINE HCL 100 MG TABLET PO SCH (09:00)
[2023-04-12] MEDS: FOLIC ACID 1 MG TABLET PO SCH (09:00)
[2023-04-12] MEDS: CALCIUM CARBONATE/VITAMIN D3 1 TAB TABLET PO SCH (09:00)
[2023-04-12] MEDS: OMEGA-3/DHA/EPA/FISH OIL 1 GM CAPSULE PO SCH (09:00)
[2023-04-12] MEDS: DOCUSATE SODIUM 100 MG CAPSULE PO SCH ×2 (09:00→21:00)
[2023-04-12] MEDS: METOCLOPRAMIDE HCL 10 MG TABLET PO SCH ×3 (09:00→21:39)
[2023-04-12] MEDS: POLYETHYLENE GLYCOL 3350, 17 GM/ POWD.PACK PO SCH (09:00)
[2023-04-12] MEDS: METOPROLOL TARTRATE 25 MG TABLET PO SCH ×2 (09:00→21:00)
[2023-04-12] MEDS: MULTIVITS,CA,MINERALS/IRON/FA 1 TABLET PO SCH (09:00)
[2023-04-12] MEDS: ASCORBIC ACID 500 MG TABLET PO SCH ×2 (09:00→21:40)
[2023-04-12 11:45] VITALS: BP_SYST 114; PULSE 96; RESP 17; TEMP 97.9; O2SAT 96
[2023-04-12] MEDS: HONEY WOUND DRESSING 1 EACH TP SCH (12:50)
[2023-04-12] MEDS: BALSAM PERU/CASTOR OIL 56.7 GM OINT...G. TP SCH (12:51)
[2023-04-12 17:28] VITALS: BP_SYST 96; PULSE 89; RESP 16; TEMP 98.6; O2SAT 96
[2023-04-12] MEDS: ERTAPENEM SODIUM 1 GM in NS 50 ML IV SCH (18:38)
[2023-04-12] MEDS: HYDROcodone/ACETAMIN 10-325 MG TAB PO PRN (18:39)
[2023-04-12 20:30] VITALS: BP_SYST 104; PULSE 83; RESP 20; TEMP 97.5; O2SAT 96
[2023-04-12] MEDS: SENNOSIDES 8.6 MG TABLET PO SCH (21:00)
[2023-04-12 21:30] VITALS: O2SAT 96
[2023-04-12] MEDS: traZODone HCL 50 MG TABLET (DESYREL) PO SCH (21:39)
[2023-04-13 01:02] VITALS: BP_SYST 97; PULSE 85; RESP 20; TEMP 96.3; O2SAT 98
[2023-04-13] MEDS: SUCRALFATE 1 GM TABLET PO SCH ×3 (07:00→17:00)
[2023-04-13 07:57] LABS: PROTHROMBIN TIME 10.7 SECS (9.5-12.5)
[2023-04-13 08:00] VITALS: BP_SYST 116; PULSE 77; RESP 18; TEMP 96.8; O2SAT 98
[2023-04-13] MEDS: FERROUS SULFATE 325 MG TABLET.DR PO SCH ×2 (08:00→18:00)
[2023-04-13] MEDS: METOPROLOL TARTRATE 25 MG TABLET PO SCH (09:00)
[2023-04-13] MEDS: FOLIC ACID 1 MG TABLET PO SCH (09:00)
[2023-04-13] MEDS: POLYETHYLENE GLYCOL 3350, 17 GM/ POWD.PACK PO SCH (09:00)
[2023-04-13] MEDS: CALCIUM CARBONATE/VITAMIN D3 1 TAB TABLET PO SCH (09:00)
[2023-04-13] MEDS: MEGESTROL ACETATE 400 MG/10 ML UDC PO SCH (09:00)
[2023-04-13] MEDS: OMEGA-3/DHA/EPA/FISH OIL 1 GM CAPSULE PO SCH (09:00)
[2023-04-13] MEDS: ASCORBIC ACID 500 MG TABLET PO SCH (09:00)
[2023-04-13] MEDS: GABAPENTIN 100 MG CAPSULE PO SCH ×2 (09:00→14:43)
[2023-04-13] MEDS: THIAMINE HCL 100 MG TABLET PO SCH (09:00)
[2023-04-13] MEDS: DOCUSATE SODIUM 100 MG CAPSULE PO SCH (09:00)
[2023-04-13] MEDS: METOCLOPRAMIDE HCL 10 MG TABLET PO SCH ×2 (09:00→14:42)
[2023-04-13] MEDS: PANTOPRAZOLE SODIUM 40 MG TAB PO SCH (09:00)
[2023-04-13] MEDS: MULTIVITS,CA,MINERALS/IRON/FA 1 TABLET PO SCH (09:00)
[2023-04-13] MEDS: BALSAM PERU/CASTOR OIL 56.7 GM OINT...G. TP SCH (11:32)
[2023-04-13] MEDS: HONEY WOUND DRESSING 1 EACH TP SCH (11:32)
[2023-04-13] MEDS: HYDROcodone/ACETAMIN 10-325 MG TAB PO PRN (14:43)
[2023-04-13 15:13] VITALS: BP_SYST 128; PULSE 94; RESP 16; TEMP 96.2; O2SAT 100
[2023-04-13] MEDS: ERTAPENEM SODIUM 1 GM in NS 50 ML IV SCH (16:22)
== END 2023-04-13 19:00 | DRG 698 ==
LOC: SED 15:32 → SMU 18:10
PROVIDERS: ADMIT Preventive Medicine Preventive Medicine/Occupational Environmental Medicine; ATTEND Preventive Medicine Preventive Medicine/Occupational Environmental Medicine
PROC: BT121ZZ Fluoroscopy of Left Kidney using Low Osmolar Contrast (ICD-10-PCS; principal; 2023-04-13)
DX: N99.522 Malfunction of incontinent external stoma of urinary tract (principal); L89.314 Pressure ulcer of right buttock, stage 4; L89.324 Pressure ulcer of left buttock, stage 4; N39.0 Urinary tract infection, site not specified; D64.9 Anemia, unspecified; G89.29 Other chronic pain; D75.839 Thrombocytosis, unspecified; J44.9 Chronic obstructive pulmonary disease, unspecified; G80.9 Cerebral palsy, unspecified; N31.9 Neuromuscular dysfunction of bladder, unspecified; E83.51 Hypocalcemia; K21.9 Gastro-esophageal reflux disease without esophagitis; B96.89 Other specified bacterial agents as the cause of diseases classified elsewhere; B96.20 Unspecified Escherichia coli [E. coli] as the cause of diseases classified elsewhere; Y83.8 Other surgical procedures as the cause of abnormal reaction of the patient, or of later complication, without mention of misadventure at the time of the procedure; Y82.8 Other medical devices associated with adverse incidents; E88.09 Other disorders of plasma-protein metabolism, not elsewhere classified; Z88.0 Allergy status to penicillin; Z88.8 Allergy status to other drugs, medicaments and biological substances; Z22.322 Carrier or suspected carrier of Methicillin resistant Staphylococcus aureus; Z87.440 Personal history of urinary (tract) infections; Y92.89 Other specified places as the place of occurrence of the external cause
CPT/HCPCS: 36415; 71045; 74420-TC; 76376; 80048; 80053; 81000; 83735; 84100; 85025; 85610-TC; 85651-TC; 85730-TC; 86886; 86900; 86901; 87040; 87081; 87086; 93005; 96360; 99285; J1335; J2274; J7060; J8597; Q9967

== ENCOUNTER 2023-04-19 20:52 | Inpatient (IN) | payer OTHER, MEDICAID ==
[~2023-04-19] VITALS: Ht 162.6 cm; Wt 40.8 kg
[~2023-04-19 20:52] MED LIST changes: +ACET325T PO; +AMIN30LI2 PO; +ARGI1POW13 PO; +CALC-823 PO; +CALC355O18 PO; +CRAN450T9 PO; +DOCU-144 PO; +GABA-529 PO; +LOPE2CAP PO; +MEGE20TA3 PO; +MIDO5TAB4 PO; +MORP15TA PO; +NITSL SL; +OMEG-158 PO; +SIME80TA15 PO; +THIA50TA10 PO
[2023-04-19 21:11] VITALS: BP_SYST 114; PULSE 92; RESP 16; TEMP 98.3; O2SAT 99
[2023-04-19] MEDS ORDERED: MORPHINE 4 MG INJ. 4 MG/ML VIAL IVP ONE (23:00)
[2023-04-19 23:04] LABS: BASOPHILS # (AUTO) 0.1 K/uL (0.0-0.2); BASOPHILS % (AUTO) 0.5 % (0.0-2.0); EOSINOPHILS # (AUTO) 0.3 K/uL (0.0-0.4); EOSINOPHILS % (AUTO) 2.6 % (0.0-4.0); LYMPHOCYTES # (AUTO) 0.4 K/uL (1.0-5.5); LYMPHOCYTES % (AUTO) 3.8 % (20.5-51.5); MEAN CORPUSCULAR HEMOGLOBIN 21 pg (27-31); MEAN CORPUSCULAR HGB CONC 30 % (32-36); MEAN CORPUSCULAR VOLUME 71 fL (79.0-98.0); MONOCYTES # (AUTO) 0.2 K/uL (0.0-1.0); MONOCYTES % (AUTO) 1.7 % (1.7-9.3); NEUTROPHILS # (AUTO) 10.6 K/uL (1.8-7.7); NEUTROPHILS % (AUTO) 91.4 % (40.0-70.0); PLATELET COUNT (AUTO) 558 K/uL (130-430); RED BLOOD CELL COUNT(AUTO) 3.25 MIL/uL (4.2-6.2); RED CELL DISTRIBUTION WIDTH 20.7 % (9.0-15.0); WHITE BLOOD COUNT (AUTO) 11.6 K/uL (4.8-10.8)
[2023-04-19] MEDS ORDERED: DICLOFENAC 1% TP (23:23)
[2023-04-19] MEDS ORDERED: LACT1TAB6 PO (23:23)
[2023-04-19] MEDS ORDERED: CALC500T63 PO (23:23)
[2023-04-19] MEDS ORDERED: ERTA1VIA3 INJ (23:23)
[2023-04-19] MEDS ORDERED: OMEP40CA20 PO (23:23)
[2023-04-19 23:46] LABS: ANISOCYTOSIS 2+; HYPOCHROMASIA 2+; OVALOCYTES MODERATE
[2023-04-19 23:53] LABS: BILIRUBIN,URINE NEGATIVE (NEGATIVE); BLOOD, URINE 3+ (NEGATIVE); CLARITY/URINE SL CLOUDY (CLEAR); COLOR,URINE YELLOW (YELLOW); GLUCOSE,URINE NEGATIVE (NEGATIVE); KETONES,URINE NEGATIVE (NEGATIVE); LEUKOCYTE ESTERASE ,URINE 3+ (NEGATIVE); NITRITE, URINE POSITIVE (NEGATIVE); PH,URINE 6.5 (5.0-8.0); PROTEIN URINE 1+ (NEGATIVE); UROBILINOGEN,URINE 0.2 (0.2-1.0)
[2023-04-20] MEDS ORDERED: MORPHINE SULFATE 15 MG TABLET.ER PO SCH (00:30)
[2023-04-20 00:37] LABS: BACTERIA,URINE MANY /HPF (None Seen); RBC,URINE 20-50 /HPF (0-3); WBC,URINE >100 /HPF (0-3)
[2023-04-20 00:44] LABS: ALANINE AMINOTRANSFERASE 7 U/L (12-78); ALBUMIN 2.5 g/dL (3.4-4.8); ANION GAP 8 (5-15); ASPARTATE AMINOTRANSFERASE 14 U/L (10-37); CALCIUM 8.4 mg/dL (8.4-11.0); CARBON DIOXIDE 25 mmol/L (23-29); CHLORIDE 107 mmol/L (98-107); CREATININE 1.51 mg/dL (0.55-1.30); GFR AFRICAN AMERICAN 62 mL/min (>90); GLUCOSE 107 mg/dL (74-106); POTASSIUM 3.8 mmol/L (3.5-5.1); SODIUM SERUM 140 mmol/L (136-145); TOTAL BILIRUBIN 0.1 mg/dL (0.0-1.0); TOTAL PROTEIN, SERUM 7.5 g/dL (6.4-8.3); UREA NITROGEN, BLOOD 34 mg/dL (8-21)
[2023-04-20 00:45] LABS: GFR NON AFRICAN-AMERICAN 51 mL/min (>90)
[2023-04-20] MEDS ORDERED: cefTRIAXone 1 GM IVPB PREMIX 50 ML IV ONE (01:00)
[2023-04-20] MEDS ORDERED: MORPHINE 4 MG INJ. 4 MG/ML VIAL IVP ONE (01:45)
[2023-04-20 02:39] VITALS: BP_SYST 117; PULSE 87; RESP 16; TEMP 98.7
[2023-04-20 08:00] VITALS: BP_SYST 125; PULSE 83; RESP 16; TEMP 98.3; O2SAT 95
[2023-04-20] MEDS ORDERED: SIMETHICONE 80 MG TAB.CHEW PO PRN (09:45)
[2023-04-20] MEDS ORDERED: LOPERAMIDE HCL 2 MG CAPSULE PO PRN (09:45)
[2023-04-20] MEDS ORDERED: ACETAMINOPHEN 325 MG TABLET PO PRN ×2 (09:45→10:15)
[2023-04-20] MEDS ORDERED: HYDROcodone/ACETAMIN 10-325 MG TAB PO PRN (09:45)
[2023-04-20] MEDS ORDERED: NALOXONE HCL 0.4 MG/ML AMP (NARCAN) IVP PRN ×2 (09:45)
[2023-04-20] MEDS ORDERED: BISACODYL 10 MG/SUPPOSITORY RC PRN (09:45)
[2023-04-20] MEDS ORDERED: ONDANSETRON HCL 4 MG/2 ML VIAL IVP PRN (09:45)
[2023-04-20] MEDS ORDERED: LORazepam 2 MG/ML VIAL IVP PRN (09:45)
[2023-04-20] MEDS ORDERED: MORPHINE SULFATE 30 MG Immediate Release TABLET PO PRN (09:45)
[2023-04-20] MEDS ORDERED: MAG-AL HYDROX/SIMETH 30 ML UDC PO PRN (09:45)
[2023-04-20] MEDS ORDERED: HYDROcodone/ACETAMIN 5-325 MG TAB (NORCO/ VICODIN) PO PRN (09:45)
[2023-04-20] MEDS ORDERED: DICLOFENAC TP SCH (09:45)
[2023-04-20] MEDS ORDERED: MIDODRINE HCL 5 MG TABLET (PROAMATINE) PO PRN (09:45)
[2023-04-20] MEDS ORDERED: NITROGLYCERIN 0.4 MG TAB.SUBL SL PRN (09:45)
[2023-04-20 12:00] VITALS: BP_SYST 128; PULSE 81; RESP 18; TEMP 98; O2SAT 96
[2023-04-20] MEDS: SUCRALFATE 1 GM TABLET PO SCH ×3 (13:41→20:28)
[2023-04-20] MEDS: MORPHINE SULFATE 15 MG TABLET.ER PO PRN ×2 (13:47→20:28)
[2023-04-20] MEDS: GABAPENTIN 100 MG CAPSULE PO SCH ×2 (14:33→20:28)
[2023-04-20] MEDS: NACL 0.9% 1,000 ML IV SCH (15:34)
[2023-04-20 15:47] VITALS: O2SAT 96
[2023-04-20 16:00] VITALS: BP_SYST 120; PULSE 78; RESP 18; TEMP 97.6; O2SAT 97
[2023-04-20 20:15] VITALS: BP_SYST 111; PULSE 86; RESP 16; TEMP 98; O2SAT 98
[2023-04-20] MEDS: MEROPENEM 500 MG in NS 50 ML IV SCH (20:27)
[2023-04-20] MEDS: ASCORBIC ACID 500 MG TABLET PO SCH (20:28)
[2023-04-20] MEDS: SENNOSIDES 8.6 MG TABLET PO SCH (20:28)
[2023-04-20] MEDS: CALCIUM CARBONATE 500 MG/ TAB.CHEW PO SCH (20:28)
[2023-04-20] MEDS: DOCUSATE SODIUM 100 MG CAPSULE PO SCH (20:28)
[2023-04-20] MEDS ORDERED: NON-FORMULARY MEDICATION (Amino Acids/Protein Hydrolys (Pro-Stat Liquid) 30 ML) PO SCH (21:00)
[2023-04-21 00:46] VITALS: BP_SYST 119; PULSE 90; RESP 16; TEMP 97.3; O2SAT 99
[2023-04-21] MEDS: MORPHINE SULFATE 15 MG TABLET.ER PO PRN ×2 (05:16→12:45)
[2023-04-21 06:56] LABS: CALCIUM 8.4 mg/dL (8.4-11.0); CREATININE 1.11 mg/dL (0.55-1.30); PHOSPHORUS 3.8 mg/dL (2.7-4.5); POTASSIUM 3.6 mmol/L (3.5-5.1)
[2023-04-21] MEDS: SUCRALFATE 1 GM TABLET PO SCH ×4 (07:05→20:27)
[2023-04-21 07:39] LABS: BASOPHILS # (AUTO) 0.1 K/uL (0.0-0.2); EOSINOPHILS # (AUTO) 0.5 K/uL (0.0-0.4); EOSINOPHILS % (AUTO) 9.5 % (0.0-4.0); LYMPHOCYTES % (AUTO) 18.9 % (20.5-51.5); MEAN CORPUSCULAR HEMOGLOBIN 22 pg (27-31); MEAN CORPUSCULAR HGB CONC 30 % (32-36); MEAN CORPUSCULAR VOLUME 72 fL (79.0-98.0); MONOCYTES # (AUTO) 0.7 K/uL (0.0-1.0); MONOCYTES % (AUTO) 11.9 % (1.7-9.3); NEUTROPHILS # (AUTO) 3.2 K/uL (1.8-7.7); NEUTROPHILS % (AUTO) 57.7 % (40.0-70.0); PLATELET COUNT (AUTO) 537 K/uL (130-430); RED BLOOD CELL COUNT(AUTO) 3.21 MIL/uL (4.2-6.2); RED CELL DISTRIBUTION WIDTH 20.5 % (9.0-15.0); WHITE BLOOD COUNT (AUTO) 5.5 K/uL (4.8-10.8)
[2023-04-21 08:00] VITALS: O2SAT 99
[2023-04-21 08:02] VITALS: BP_SYST 113; PULSE 77; RESP 16; TEMP 97.6; O2SAT 97
[2023-04-21] MEDS: LACTOBACILLUS RHAMNOSUS GG 1 CAP CAPSULE PO SCH (08:50)
[2023-04-21] MEDS: FOLIC ACID 1 MG TABLET PO SCH (08:51)
[2023-04-21] MEDS: ASCORBIC ACID 500 MG TABLET PO SCH ×2 (08:51→20:27)
[2023-04-21] MEDS: OMEGA-3/DHA/EPA/FISH OIL 1 GM CAPSULE PO SCH (08:51)
[2023-04-21] MEDS: DOCUSATE SODIUM 100 MG CAPSULE PO SCH ×2 (08:52→20:27)
[2023-04-21] MEDS: THIAMINE HCL 100 MG TABLET PO SCH (08:52)
[2023-04-21] MEDS: PANTOPRAZOLE SODIUM 40 MG TAB PO SCH (08:52)
[2023-04-21] MEDS: GABAPENTIN 100 MG CAPSULE PO SCH ×3 (08:52→20:27)
[2023-04-21] MEDS: MEGESTROL ACETATE 40 MG TABLET PO SCH (08:52)
[2023-04-21] MEDS: MULTIVITAMINS TAB 1 TABLET PO SCH (08:53)
[2023-04-21] MEDS: CALCIUM CARBONATE/VITAMIN D3 1 TAB TABLET PO SCH (08:53)
[2023-04-21] MEDS: CALCIUM CARBONATE 500 MG/ TAB.CHEW PO SCH ×2 (08:53→20:27)
[2023-04-21] MEDS: POLYETHYLENE GLYCOL 3350, 17 GM/ POWD.PACK PO SCH (08:55)
[2023-04-21] MEDS ORDERED: NON-FORMULARY MEDICATION (Arginine/Ascorbate Sod/Vite AC (Arginaid Powder) 1 EACH) PO SCH (09:00)
[2023-04-21] MEDS ORDERED: NON-FORMULARY MEDICATION (Cranberry Fruit (Cranberry) 1 TAB) PO SCH (09:00)
[2023-04-21] MEDS: MEROPENEM 500 MG in NS 50 ML IV SCH ×2 (09:14→20:27)
[2023-04-21] MEDS: NACL 0.9% 1,000 ML IV SCH (10:46)
[2023-04-21 12:00] VITALS: BP_SYST 95; PULSE 84; RESP 16; TEMP 97.6; O2SAT 95
[2023-04-21] MEDS: MUPIROCIN 2% TOPICAL OINTMENT 22 GM NS SCH ×2 (13:35→20:28)
[2023-04-21 16:00] VITALS: BP_SYST 118; PULSE 81; RESP 18; TEMP 97.4; O2SAT 94
[2023-04-21 20:00] VITALS: BP_SYST 101; PULSE 72; RESP 18; TEMP 97.2; O2SAT 95
[2023-04-21] MEDS: SENNOSIDES 8.6 MG TABLET PO SCH (20:27)
[2023-04-22 00:28] VITALS: BP_SYST 104; PULSE 77; RESP 17; TEMP 98.6; O2SAT 99
[2023-04-22] MEDS: NACL 0.9% 1,000 ML IV SCH (06:05)
[2023-04-22] MEDS: SUCRALFATE 1 GM TABLET PO SCH ×4 (06:05→20:21)
[2023-04-22 07:07] LABS: ERYTHROCYTE SEDIMENTATION RATE 59 MM/HR (0-15)
[2023-04-22 07:26] LABS: POTASSIUM 3.7 mmol/L (3.5-5.1)
[2023-04-22 07:27] LABS: ALBUMIN 2.2 g/dL (3.4-4.8); CALCIUM 8.3 mg/dL (8.4-11.0); CREATININE 0.88 mg/dL (0.55-1.30); PHOSPHORUS 3.3 mg/dL (2.7-4.5); TOTAL BILIRUBIN 0.2 mg/dL (0.0-1.0); TOTAL PROTEIN, SERUM 6.8 g/dL (6.4-8.3)
[2023-04-22 07:45] VITALS: BP_SYST 115; PULSE 76; RESP 16; TEMP 98.7; O2SAT 97
[2023-04-22 08:00] VITALS: O2SAT 97
[2023-04-22 08:13] LABS: BASOPHILS # (AUTO) 0.1 K/uL (0.0-0.2); BASOPHILS % (AUTO) 1.5 % (0.0-2.0); EOSINOPHILS # (AUTO) 0.6 K/uL (0.0-0.4); EOSINOPHILS % (AUTO) 12.2 % (0.0-4.0); LYMPHOCYTES # (AUTO) 0.9 K/uL (1.0-5.5); LYMPHOCYTES % (AUTO) 16.2 % (20.5-51.5); MEAN CORPUSCULAR HEMOGLOBIN 21 pg (27-31); MEAN CORPUSCULAR HGB CONC 30 % (32-36); MEAN CORPUSCULAR VOLUME 72 fL (79.0-98.0); MONOCYTES # (AUTO) 0.5 K/uL (0.0-1.0); MONOCYTES % (AUTO) 9.6 % (1.7-9.3); NEUTROPHILS # (AUTO) 3.2 K/uL (1.8-7.7); NEUTROPHILS % (AUTO) 60.5 % (40.0-70.0); PLATELET COUNT (AUTO) 463 K/uL (130-430); RED BLOOD CELL COUNT(AUTO) 2.99 MIL/uL (4.2-6.2); RED CELL DISTRIBUTION WIDTH 20.4 % (9.0-15.0); WHITE BLOOD COUNT (AUTO) 5.3 K/uL (4.8-10.8)
[2023-04-22 08:15] LABS: HEMATOCRIT 21.5 % (36-54); HEMOGLOBIN 6.4 g/dL (14.0-18.0)
[2023-04-22] MEDS: MEROPENEM 500 MG in NS 50 ML IV SCH (09:03)
[2023-04-22] MEDS: POLYETHYLENE GLYCOL 3350, 17 GM/ POWD.PACK PO SCH ×2 (09:03→09:26)
[2023-04-22] MEDS: MEGESTROL ACETATE 40 MG TABLET PO SCH (09:03)
[2023-04-22] MEDS: OMEGA-3/DHA/EPA/FISH OIL 1 GM CAPSULE PO SCH (09:04)
[2023-04-22] MEDS: ASCORBIC ACID 500 MG TABLET PO SCH ×2 (09:04→20:23)
[2023-04-22] MEDS: GABAPENTIN 100 MG CAPSULE PO SCH ×3 (09:04→20:22)
[2023-04-22] MEDS: MULTIVITAMINS TAB 1 TABLET PO SCH (09:04)
[2023-04-22] MEDS: CALCIUM CARBONATE/VITAMIN D3 1 TAB TABLET PO SCH (09:04)
[2023-04-22] MEDS: FOLIC ACID 1 MG TABLET PO SCH (09:04)
[2023-04-22] MEDS: PANTOPRAZOLE SODIUM 40 MG TAB PO SCH (09:04)
[2023-04-22] MEDS: DOCUSATE SODIUM 100 MG CAPSULE PO SCH ×2 (09:05→20:21)
[2023-04-22] MEDS: CALCIUM CARBONATE 500 MG/ TAB.CHEW PO SCH ×2 (09:05→20:21)
[2023-04-22] MEDS: LACTOBACILLUS RHAMNOSUS GG 1 CAP CAPSULE PO SCH (09:05)
[2023-04-22] MEDS: THIAMINE HCL 100 MG TABLET PO SCH (09:06)
[2023-04-22] MEDS: MUPIROCIN 2% TOPICAL OINTMENT 22 GM NS SCH ×2 (09:07→20:23)
[2023-04-22] MEDS: BALSAM PERU/CASTOR OIL 56.7 GM OINT...G. TP SCH (09:08)
[2023-04-22 12:27] VITALS: BP_SYST 101; PULSE 62; RESP 18; TEMP 98.1; O2SAT 97
[2023-04-22] MEDS: MORPHINE SULFATE 15 MG TABLET.ER PO PRN ×2 (13:20→20:22)
[2023-04-22 14:02] LABS: TOTAL IRON BIND. CAPACITY 162 ug/dL (250-450)
[2023-04-22] MEDS ORDERED: IRON DEXTRAN COMPLEX 25 MG in NS 50 ML TEST DOSE IV ONE ×2 (15:00→21:00)
[2023-04-22 16:40] VITALS: BP_SYST 107; PULSE 67; RESP 16; TEMP 97.9; O2SAT 98
[2023-04-22] MEDS ORDERED: IRON DEXTRAN COMPLEX 75 MG in NS 100 ML IV ONE ×2 (17:00→23:00)
[2023-04-22 19:45] LABS: HEMATOCRIT 28.5 % (36-54); HEMOGLOBIN 8.8 g/dL (14.0-18.0)
[2023-04-22 20:00] VITALS: BP_SYST 120; PULSE 82; RESP 18; TEMP 97.3; O2SAT 95
[2023-04-22] MEDS: CEFTAZIDIME 1 GM in D5W 50 ML IV SCH (20:22)
[2023-04-22] MEDS: SENNOSIDES 8.6 MG TABLET PO SCH (20:22)
[2023-04-23 00:31] VITALS: BP_SYST 114; PULSE 85; RESP 15; TEMP 97.7; O2SAT 95
[2023-04-23] MEDS: SUCRALFATE 1 GM TABLET PO SCH ×4 (06:05→21:09)
[2023-04-23] MEDS: NACL 0.9% 1,000 ML IV SCH ×2 (06:05→21:13)
[2023-04-23 06:56] LABS: BASOPHILS # (AUTO) 0.1 K/uL (0.0-0.2); BASOPHILS % (AUTO) 0.8 % (0.0-2.0); EOSINOPHILS # (AUTO) 0.6 K/uL (0.0-0.4); EOSINOPHILS % (AUTO) 6.9 % (0.0-4.0); HEMATOCRIT 28.7 % (36-54); LYMPHOCYTES # (AUTO) 0.7 K/uL (1.0-5.5); LYMPHOCYTES % (AUTO) 7.5 % (20.5-51.5); MEAN CORPUSCULAR HEMOGLOBIN 23 pg (27-31); MEAN CORPUSCULAR HGB CONC 31 % (32-36); MEAN CORPUSCULAR VOLUME 73 fL (79.0-98.0); MONOCYTES # (AUTO) 0.7 K/uL (0.0-1.0); MONOCYTES % (AUTO) 7.3 % (1.7-9.3); NEUTROPHILS % (AUTO) 77.5 % (40.0-70.0); PLATELET COUNT (AUTO) 517 K/uL (130-430); RED BLOOD CELL COUNT(AUTO) 3.93 MIL/uL (4.2-6.2); RED CELL DISTRIBUTION WIDTH 21.8 % (9.0-15.0)
[2023-04-23 07:18] LABS: ALBUMIN 2.2 g/dL (3.4-4.8); CALCIUM 8.6 mg/dL (8.4-11.0); CREATININE 0.96 mg/dL (0.55-1.30); TOTAL BILIRUBIN 0.4 mg/dL (0.0-1.0); TOTAL PROTEIN, SERUM 7.2 g/dL (6.4-8.3)
[2023-04-23 07:41] LABS: ERYTHROCYTE SEDIMENTATION RATE 83 MM/HR (0-15)
[2023-04-23 08:00] VITALS: BP_SYST 112; PULSE 82; RESP 14; TEMP 97.8; O2SAT 95
[2023-04-23] MEDS: POLYETHYLENE GLYCOL 3350, 17 GM/ POWD.PACK PO SCH (08:58)
[2023-04-23] MEDS: MULTIVITAMINS TAB 1 TABLET PO SCH (08:59)
[2023-04-23] MEDS: CALCIUM CARBONATE 500 MG/ TAB.CHEW PO SCH ×2 (08:59→21:08)
[2023-04-23] MEDS: CALCIUM CARBONATE/VITAMIN D3 1 TAB TABLET PO SCH (08:59)
[2023-04-23] MEDS: MEGESTROL ACETATE 40 MG TABLET PO SCH (08:59)
[2023-04-23] MEDS: THIAMINE HCL 100 MG TABLET PO SCH (08:59)
[2023-04-23] MEDS: GABAPENTIN 100 MG CAPSULE PO SCH ×3 (08:59→21:12)
[2023-04-23] MEDS: LACTOBACILLUS RHAMNOSUS GG 1 CAP CAPSULE PO SCH (08:59)
[2023-04-23] MEDS: OMEGA-3/DHA/EPA/FISH OIL 1 GM CAPSULE PO SCH (08:59)
[2023-04-23] MEDS: MUPIROCIN 2% TOPICAL OINTMENT 22 GM NS SCH ×2 (09:00→21:12)
[2023-04-23] MEDS: BALSAM PERU/CASTOR OIL 56.7 GM OINT...G. TP SCH (09:00)
[2023-04-23] MEDS: DOCUSATE SODIUM 100 MG CAPSULE PO SCH ×2 (09:00→21:08)
[2023-04-23] MEDS: PANTOPRAZOLE SODIUM 40 MG TAB PO SCH (09:00)
[2023-04-23] MEDS: FOLIC ACID 1 MG TABLET PO SCH (09:00)
[2023-04-23] MEDS: ASCORBIC ACID 500 MG TABLET PO SCH ×2 (09:01→21:12)
[2023-04-23] MEDS: CEFTAZIDIME 1 GM in D5W 50 ML IV SCH ×2 (09:01→21:10)
[2023-04-23 11:55] VITALS: BP_SYST 110; PULSE 91; RESP 16; TEMP 96.8; O2SAT 97
[2023-04-23] MEDS: MORPHINE SULFATE 15 MG TABLET.ER PO PRN ×2 (12:02→21:08)
[2023-04-23] MEDS ORDERED: IRON DEXTRAN COMPLEX 100 MG in NS 100 ML IV SCH ×2 (17:00→21:00)
[2023-04-23] MEDS ORDERED: FERR324T11 PO (17:49)
[2023-04-23] MEDS ORDERED: CEFT1PIG6 IV (17:49)
[2023-04-23 18:36] VITALS: BP_SYST 116; PULSE 89; RESP 16; TEMP 97.4; O2SAT 94
[2023-04-23 21:00] VITALS: BP_SYST 112; PULSE 84; RESP 18; TEMP 98.2; O2SAT 95
[2023-04-23] MEDS: SENNOSIDES 8.6 MG TABLET PO SCH (21:09)
[2023-04-23 22:00] VITALS: O2SAT 95
[2023-04-24 00:51] VITALS: BP_SYST 109; PULSE 75; RESP 16; TEMP 97.2; O2SAT 95
[2023-04-24] MEDS: SUCRALFATE 1 GM TABLET PO SCH ×2 (06:15→12:00)
[2023-04-24 08:00] VITALS: O2SAT 95
[2023-04-24] MEDS: CALCIUM CARBONATE/VITAMIN D3 1 TAB TABLET PO SCH (09:00)
[2023-04-24] MEDS: THIAMINE HCL 100 MG TABLET PO SCH (09:00)
[2023-04-24] MEDS: ASCORBIC ACID 500 MG TABLET PO SCH (09:00)
[2023-04-24] MEDS: PANTOPRAZOLE SODIUM 40 MG TAB PO SCH (09:00)
[2023-04-24] MEDS: OMEGA-3/DHA/EPA/FISH OIL 1 GM CAPSULE PO SCH (09:00)
[2023-04-24] MEDS: DOCUSATE SODIUM 100 MG CAPSULE PO SCH (09:00)
[2023-04-24] MEDS: GABAPENTIN 100 MG CAPSULE PO SCH ×2 (09:00→15:03)
[2023-04-24] MEDS: MEGESTROL ACETATE 40 MG TABLET PO SCH (09:00)
[2023-04-24] MEDS: BALSAM PERU/CASTOR OIL 56.7 GM OINT...G. TP SCH (09:00)
[2023-04-24] MEDS: POLYETHYLENE GLYCOL 3350, 17 GM/ POWD.PACK PO SCH (09:00)
[2023-04-24] MEDS: CALCIUM CARBONATE 500 MG/ TAB.CHEW PO SCH (09:00)
[2023-04-24] MEDS: LACTOBACILLUS RHAMNOSUS GG 1 CAP CAPSULE PO SCH (09:00)
[2023-04-24] MEDS: MULTIVITAMINS TAB 1 TABLET PO SCH (09:00)
[2023-04-24] MEDS: FOLIC ACID 1 MG TABLET PO SCH (09:00)
[2023-04-24 10:02] VITALS: BP_SYST 95; PULSE 62; RESP 17; TEMP 96.8; O2SAT 95
[2023-04-24] MEDS: CEFTAZIDIME 1 GM in D5W 50 ML IV SCH (11:05)
[2023-04-24 16:00] VITALS: BP_SYST 104; PULSE 77; RESP 16; TEMP 97.6; O2SAT 96
[2023-04-24 16:08] VITALS: BP_SYST 104; PULSE 77; RESP 17; TEMP 98.2; O2SAT 96
[2023-04-24 17:37] LABS: CALCIUM 7.9 mg/dL (8.4-11.0); CREATININE 0.97 mg/dL (0.55-1.30); POTASSIUM 4.1 mmol/L (3.5-5.1)
[2023-04-24 17:40] LABS: BASOPHILS # (AUTO) 0.1 K/uL (0.0-0.2); EOSINOPHILS # (AUTO) 0.7 K/uL (0.0-0.4); EOSINOPHILS % (AUTO) 10.4 % (0.0-4.0); HEMATOCRIT 25.7 % (36-54); HEMOGLOBIN 7.9 g/dL (14.0-18.0); LYMPHOCYTES # (AUTO) 0.8 K/uL (1.0-5.5); LYMPHOCYTES % (AUTO) 11.4 % (20.5-51.5); MEAN CORPUSCULAR HEMOGLOBIN 23 pg (27-31); MEAN CORPUSCULAR HGB CONC 31 % (32-36); MEAN CORPUSCULAR VOLUME 74 fL (79.0-98.0); MONOCYTES # (AUTO) 0.6 K/uL (0.0-1.0); MONOCYTES % (AUTO) 9.6 % (1.7-9.3); NEUTROPHILS # (AUTO) 4.4 K/uL (1.8-7.7); NEUTROPHILS % (AUTO) 66.6 % (40.0-70.0); PLATELET COUNT (AUTO) 461 K/uL (130-430); RED BLOOD CELL COUNT(AUTO) 3.49 MIL/uL (4.2-6.2); RED CELL DISTRIBUTION WIDTH 22.1 % (9.0-15.0); WHITE BLOOD COUNT (AUTO) 6.7 K/uL (4.8-10.8)
[2023-04-24 17:54] LABS: ERYTHROCYTE SEDIMENTATION RATE 64 MM/HR (0-15)
[2023-04-24 18:10] LABS: ANISOCYTOSIS 2+; HYPOCHROMASIA 1+
[2023-04-25 15:58] LABS: OVALOCYTES MODERATE
== END 2023-04-24 21:05 | DRG 871 ==
LOC: SED 20:52 → SMU 04-20 00:19
PROVIDERS: ADMIT Preventive Medicine Preventive Medicine/Occupational Environmental Medicine; ATTEND Preventive Medicine Preventive Medicine/Occupational Environmental Medicine
PROC: 30233N1 Transfusion of Nonautologous Red Blood Cells into Peripheral Vein, Percutaneous Approach (ICD-10-PCS; principal; 2023-04-22)
PROC: 05HY33Z Insertion of Infusion Device into Upper Vein, Percutaneous Approach (ICD-10-PCS; 2023-04-23)
PROC: B54NZZA Ultrasonography of Left Upper Extremity Veins, Guidance (ICD-10-PCS; 2023-04-23)
DX: A41.51 Sepsis due to Escherichia coli [E. coli] (principal); N17.0 Acute kidney failure with tubular necrosis; N13.6 Pyonephrosis; Z16.12 Extended spectrum beta lactamase (ESBL) resistance; Z16.19 Resistance to other specified beta lactam antibiotics; I47.1 Supraventricular tachycardia; Z68.1 Body mass index [BMI] 19.9 or less, adult; T83.022A Displacement of nephrostomy catheter, initial encounter; N99.522 Malfunction of incontinent external stoma of urinary tract; B96.5 Pseudomonas (aeruginosa) (mallei) (pseudomallei) as the cause of diseases classified elsewhere; E88.09 Other disorders of plasma-protein metabolism, not elsewhere classified; E83.52 Hypercalcemia; G80.9 Cerebral palsy, unspecified; J44.9 Chronic obstructive pulmonary disease, unspecified; K21.9 Gastro-esophageal reflux disease without esophagitis; N31.9 Neuromuscular dysfunction of bladder, unspecified; Y83.8 Other surgical procedures as the cause of abnormal reaction of the patient, or of later complication, without mention of misadventure at the time of the procedure; E78.5 Hyperlipidemia, unspecified; D75.839 Thrombocytosis, unspecified; D50.9 Iron deficiency anemia, unspecified; G89.29 Other chronic pain; Y82.8 Other medical devices associated with adverse incidents; Z88.1 Allergy status to other antibiotic agents; Z88.8 Allergy status to other drugs, medicaments and biological substances; Z79.899 Other long term (current) drug therapy; Y92.89 Other specified places as the place of occurrence of the external cause; Z22.322 Carrier or suspected carrier of Methicillin resistant Staphylococcus aureus; Z87.19 Personal history of other diseases of the digestive system; Z87.440 Personal history of urinary (tract) infections
CPT/HCPCS: 36415; 71045; 76376; 80048; 80053; 81000; 82607; 82728; 82746; 83540; 83550; 83735; 83880; 84100; 84484; 85018; 85025; 85044; 85651-TC; 86886; 86900; 86901; 86920; 87040; 87081; 87086; 93005; 96365; 96375; 96376; 99285; C1751; J0696; J0713; J1750; J2185; J2270; J7030; J7050; J7060; P9021

== ENCOUNTER 2023-07-19 09:51 | Emergency (ER) | payer OTHER, MEDICAID ==
[~2023-07-19] VITALS: Ht 165.1 cm; Wt 39.5 kg
[~2023-07-19 09:51] MED LIST changes: +CALC500T63 PO; +CEFT1PIG6 IV; +DICLOFENAC 1% TP; -FERR-69 PO; +FERR324T11 PO; -LACT10SO6 PO; +LACT1TAB6 PO; -METO-290 PO; -METO25TA6 PO; +OMEP40CA20 PO; -ONDA4TAB55 PO; -PRO40 PO; -TRAM50TA2 PO; -TRAZ-250 PO; -ZINC220T3 PO; -ZOSPM2 IV
[2023-07-19 09:54] VITALS: BP_SYST 121; PULSE 99; RESP 18; TEMP 98.7; O2SAT 96
[2023-07-19 11:04] VITALS: BP_SYST 121; PULSE 99; RESP 18; TEMP 98.7; O2SAT 96
== END 2023-07-19 11:02 | disposition home or self-care (01) ==
LOC: SED 09:51
DX: T83.038A Leakage of other urinary catheter, initial encounter (principal); J44.9 Chronic obstructive pulmonary disease, unspecified; K21.9 Gastro-esophageal reflux disease without esophagitis; Z88.1 Allergy status to other antibiotic agents; Z79.899 Other long term (current) drug therapy
CPT/HCPCS: 99283

== ENCOUNTER 2023-07-21 10:12 | Emergency (ER) | payer OTHER, MEDICAID ==
[~2023-07-21] VITALS: Ht 165.1 cm; Wt 39.5 kg
[2023-07-21 10:12] VITALS: BP_SYST 116; PULSE 106; RESP 17; TEMP 97.1; O2SAT 97
[2023-07-21 12:29] VITALS: BP_SYST 105; PULSE 88; RESP 20; TEMP 98.1; O2SAT 96
== END 2023-07-21 12:24 ==
LOC: SED 10:12
DX: T83.038A Leakage of other urinary catheter, initial encounter (principal); J44.9 Chronic obstructive pulmonary disease, unspecified; K21.9 Gastro-esophageal reflux disease without esophagitis; Z88.1 Allergy status to other antibiotic agents; Z79.899 Other long term (current) drug therapy
CPT/HCPCS: 99284; 99285

== ENCOUNTER 2024-03-05 13:30 | Inpatient (IN) | payer OTHER, MEDICAID ==
[~2024-03-05] VITALS: Ht 170.2 cm; Wt 39.7 kg
[~2024-03-05 13:30] MED LIST changes: +ALBU10.7 PO; -AMIN30LI2 PO; -ARGI1POW13 PO; +BISA-140 PO; -BISA10SU61 RC; -CALC-823 PO; -CALC355O18 PO; -CALC500T63 PO; -CEFT1PIG6 IV; -CRAN450T9 PO; -DICLOFENAC 1% TP; -FERR324T11 PO; -FOLI-43 PO; -GABA-529 PO; -LACT1TAB6 PO; -LOPE2CAP PO; -MEGE20TA3 PO; -MIDO5TAB4 PO; +MINE1OIL2 MC; +NA P133E24 RC; +NALO0.4S IM; -OMEG-158 PO; +ONDA4TAB55 PO; -SIME80TA15 PO; -SUCR1TAB2 PO; -THIA50TA10 PO; +ZINC50TA15 PO
[2024-03-05 13:51] VITALS: BP_SYST 132; PULSE 84; RESP 17; TEMP 99.6; O2SAT 99
[2024-03-05 16:17] LABS: BASOPHILS # (AUTO) 0.1 K/uL (0.0-0.2); BASOPHILS % (AUTO) 0.9 % (0.0-2.0); EOSINOPHILS # (AUTO) 0.3 K/uL (0.0-0.4); EOSINOPHILS % (AUTO) 2.2 % (0.0-4.0); HEMATOCRIT 32.8 % (36-54); HEMOGLOBIN 10.7 g/dL (14.0-18.0); LYMPHOCYTES # (AUTO) 0.9 K/uL (1.0-5.5); LYMPHOCYTES % (AUTO) 7.8 % (20.5-51.5); MEAN CORPUSCULAR HEMOGLOBIN 27 pg (27-31); MEAN CORPUSCULAR HGB CONC 33 % (32-36); MEAN CORPUSCULAR VOLUME 83 fL (79.0-98.0); MONOCYTES # (AUTO) 0.8 K/uL (0.0-1.0); MONOCYTES % (AUTO) 6.3 % (1.7-9.3); NEUTROPHILS # (AUTO) 9.9 K/uL (1.8-7.7); NEUTROPHILS % (AUTO) 82.8 % (40.0-70.0); PLATELET COUNT (AUTO) 663 K/uL (130-430); RED BLOOD CELL COUNT(AUTO) 3.97 MIL/uL (4.2-6.2); RED CELL DISTRIBUTION WIDTH 25.1 % (9.0-15.0); WHITE BLOOD COUNT (AUTO) 11.9 K/uL (4.8-10.8)
[2024-03-05 16:30] LABS: ANION GAP 8 (5-15); ANISOCYTOSIS 2+; CALCIUM 8.9 mg/dL (8.4-11.0); CARBON DIOXIDE 26 mmol/L (23-29); CHLORIDE 102 mmol/L (98-107); CREATININE 1.24 mg/dL (0.55-1.30); GFR AFRICAN AMERICAN 77 mL/min (>90); GLUCOSE 117 mg/dL (74-106); OVALOCYTES FEW; POTASSIUM 3.1 mmol/L (3.5-5.1); SODIUM SERUM 136 mmol/L (136-145); UREA NITROGEN, BLOOD 50 mg/dL (8-21)
[2024-03-05 16:31] LABS: GFR NON AFRICAN-AMERICAN 64 mL/min (>90)
[2024-03-05] MEDS: MORPHINE 4 MG INJ. 4 MG/ML VIAL IVP ONE (17:25)
[2024-03-05 19:21] LABS: BILIRUBIN,URINE NEGATIVE (NEGATIVE); BLOOD, URINE 2+ (NEGATIVE); CLARITY/URINE SL CLOUDY (CLEAR); COLOR,URINE YELLOW (YELLOW); GLUCOSE,URINE NEGATIVE (NEGATIVE); KETONES,URINE NEGATIVE (NEGATIVE); LEUKOCYTE ESTERASE ,URINE 3+ (NEGATIVE); NITRITE, URINE NEGATIVE (NEGATIVE); PH,URINE 6.5 (5.0-8.0); PROTEIN URINE 2+ (NEGATIVE); UROBILINOGEN,URINE 0.2 (0.2-1.0)
[2024-03-05 19:29] LABS: BACTERIA,URINE MANY /HPF (None Seen); MUCUS,URINE None Seen /LPF (None Seen); WBC,URINE >100 /HPF (0-3); YEAST,URINE Rare /HPF (None Seen)
[2024-03-05] MEDS ORDERED: cefTRIAXone 1 GM VIAL ONE (19:57)
[2024-03-05] MEDS: cefTRIAXone 1 GM in D5W 50 ML IV ONE (20:02)
[2024-03-05] MEDS: POTASSIUM CHLORIDE 20 MEQ/PKT PACKET PO ONE (20:03)
[2024-03-05] MEDS ORDERED: KCL 20 mEq in 100 mL (PREMIX) 200 ML IV ONE (20:08)
[2024-03-05] MEDS ORDERED: MAGNESIUM SULFATE 50 ML IV PRN (20:15)
[2024-03-05] MEDS ORDERED: POTASSIUM CHLORIDE 20 MEQ TABLET.ER PO PRN (20:15)
[2024-03-05] MEDS ORDERED: MUPIROCIN 2% TOPICAL OINTMENT 22 GM NS PRN (20:15)
[2024-03-05] MEDS ORDERED: LORazepam 2 MG/ML VIAL IVP PRN (20:15)
[2024-03-05] MEDS ORDERED: ZOLPIDEM TARTRATE 5 MG TABLET PO PRN (20:15)
[2024-03-05] MEDS ORDERED: DOCUSATE SODIUM 100 MG CAPSULE PO PRN (20:15)
[2024-03-05] MEDS ORDERED: IPRATROPIUM/ALBUTEROL SULFATE 3 ML AMPUL.NEB (DUONEB) INH PRN (20:15)
[2024-03-05 20:43] VITALS: BP_SYST 119; PULSE 96; O2SAT 98
[2024-03-05] MEDS: DOCUSATE SODIUM 100 MG CAPSULE PO SCH (21:00)
[2024-03-05] MEDS: POLYETHYLENE GLYCOL 3350, 17 GM/ POWD.PACK PO SCH (21:00)
[2024-03-05] MEDS: ASCORBIC ACID 500 MG TABLET PO SCH (21:00)
[2024-03-05] MEDS: KCL 40 mEq in 100 mL (PREMIX) 100 ML IV ONE (21:01)
[2024-03-05] MEDS: NACL 0.9% 1,000 ML IV ONE (21:02)
[2024-03-05] MEDS: NACL 0.9% 1,000 ML IV SCH (21:02)
[2024-03-05 21:54] VITALS: BP_SYST 120; PULSE 87; RESP 20
[2024-03-05 22:00] VITALS: BP_SYST 120; PULSE 87; RESP 20
[2024-03-05 23:00] VITALS: O2SAT 95
[2024-03-06] MEDS: HEPARIN SODIUM,PORCINE 5,000 UNITS/ML VIAL SUBCUT SCH (01:03)
[2024-03-06] MEDS: MORPHINE 2 MG/ML INJ. SYRINGE IVP PRN ×2 (06:35→11:19)
[2024-03-06 08:00] VITALS: BP_SYST 125; PULSE 83; RESP 16; TEMP 97.9; O2SAT 96
[2024-03-06 08:20] LABS: BASOPHILS # (AUTO) 0.1 K/uL (0.0-0.2); EOSINOPHILS # (AUTO) 0.2 K/uL (0.0-0.4); EOSINOPHILS % (AUTO) 2.1 % (0.0-4.0); HEMOGLOBIN 10.8 g/dL (14.0-18.0); LYMPHOCYTES # (AUTO) 0.9 K/uL (1.0-5.5); LYMPHOCYTES % (AUTO) 9.9 % (20.5-51.5); MEAN CORPUSCULAR HEMOGLOBIN 27 pg (27-31); MEAN CORPUSCULAR HGB CONC 32 % (32-36); MEAN CORPUSCULAR VOLUME 84 fL (79.0-98.0); MONOCYTES # (AUTO) 0.5 K/uL (0.0-1.0); MONOCYTES % (AUTO) 4.9 % (1.7-9.3); NEUTROPHILS # (AUTO) 7.7 K/uL (1.8-7.7); PLATELET COUNT (AUTO) 701 K/uL (130-430); RED BLOOD CELL COUNT(AUTO) 4.05 MIL/uL (4.2-6.2); RED CELL DISTRIBUTION WIDTH 24.6 % (9.0-15.0); WHITE BLOOD COUNT (AUTO) 9.4 K/uL (4.8-10.8)
[2024-03-06 08:26] LABS: CALCIUM 8.9 mg/dL (8.4-11.0); CREATININE 1.15 mg/dL (0.55-1.30); POTASSIUM 4.2 mmol/L (3.5-5.1)
[2024-03-06 08:32] LABS: NEUTROPHILS % (AUTO) 82.1 % (40.0-70.0)
[2024-03-06] MEDS: BISACODYL 5 MG TABLET.DR (DULCOLAX) PO SCH (09:00)
[2024-03-06] MEDS ORDERED: SENNOSIDES 8.6 MG TABLET PO SCH (09:00)
[2024-03-06] MEDS: cefTRIAXone 1 GM in D5W 50 ML IV SCH (09:48)
[2024-03-06] MEDS: SENNOSIDES 8.6 MG TABLET PO ONE (10:00)
[2024-03-06] MEDS ORDERED: ZOLPIDEM TARTRATE 5 MG TABLET PO PRN (10:15)
[2024-03-06 11:25] VITALS: BP_SYST 112; PULSE 88; RESP 16; TEMP 99; O2SAT 96
[2024-03-06 11:55] VITALS: O2SAT 96
[2024-03-06 16:31] VITALS: BP_SYST 119; PULSE 83; RESP 17; TEMP 98.3; O2SAT 95
[2024-03-06] MEDS: ERTAPENEM SODIUM 0.5 GM in NS 50 ML IV SCH (16:50)
[2024-03-06] MEDS: BALSAM PERU/CASTOR OIL 56.7 GM OINT...G. TP SCH (17:25)
[2024-03-06] MEDS: MENTHOL/ZINC OXIDE 113 GM OINT. TP SCH (18:32)
[2024-03-06 20:00] VITALS: BP_SYST 117; PULSE 83; RESP 18; TEMP 97.8; O2SAT 98
[2024-03-07] VITALS (7 sets, daily range): BP systolic 108–131; PULSE 72–91; RESP 16–18; TEMP 97.9–99.3; O2SAT 93–98
[2024-03-07 06:16] LABS: BASOPHILS # (AUTO) 0.1 K/uL (0.0-0.2); BASOPHILS % (AUTO) 1.3 % (0.0-2.0); EOSINOPHILS # (AUTO) 0.3 K/uL (0.0-0.4); EOSINOPHILS % (AUTO) 4.1 % (0.0-4.0); HEMATOCRIT 28.4 % (36-54); LYMPHOCYTES # (AUTO) 0.8 K/uL (1.0-5.5); LYMPHOCYTES % (AUTO) 11.3 % (20.5-51.5); MEAN CORPUSCULAR HEMOGLOBIN 27 pg (27-31); MEAN CORPUSCULAR HGB CONC 32 % (32-36); MEAN CORPUSCULAR VOLUME 85 fL (79.0-98.0); MONOCYTES # (AUTO) 0.4 K/uL (0.0-1.0); NEUTROPHILS # (AUTO) 5.3 K/uL (1.8-7.7); NEUTROPHILS % (AUTO) 77.3 % (40.0-70.0); PLATELET COUNT (AUTO) 566 K/uL (130-430); RED BLOOD CELL COUNT(AUTO) 3.32 MIL/uL (4.2-6.2); RED CELL DISTRIBUTION WIDTH 24.4 % (9.0-15.0); WHITE BLOOD COUNT (AUTO) 6.9 K/uL (4.8-10.8)
[2024-03-07 06:57] LABS: CALCIUM 8.6 mg/dL (8.4-11.0); CREATININE 1.01 mg/dL (0.55-1.30); POTASSIUM 3.9 mmol/L (3.5-5.1)
[2024-03-07] MEDS: SENNOSIDES 8.6 MG TABLET PO SCH (09:07)
[2024-03-07] MEDS: ONDANSETRON HCL 4 MG/2 ML VIAL IVP PRN (16:53)
[2024-03-08 04:35] LABS: BASOPHILS # (AUTO) 0.1 K/uL (0.0-0.2); BASOPHILS % (AUTO) 0.6 % (0.0-2.0); EOSINOPHILS # (AUTO) 0.1 K/uL (0.0-0.4); EOSINOPHILS % (AUTO) 1.4 % (0.0-4.0); HEMOGLOBIN 9.8 g/dL (14.0-18.0); LYMPHOCYTES # (AUTO) 0.9 K/uL (1.0-5.5); LYMPHOCYTES % (AUTO) 9.4 % (20.5-51.5); MEAN CORPUSCULAR HEMOGLOBIN 27 pg (27-31); MEAN CORPUSCULAR HGB CONC 32 % (32-36); MEAN CORPUSCULAR VOLUME 84 fL (79.0-98.0); MONOCYTES # (AUTO) 0.5 K/uL (0.0-1.0); MONOCYTES % (AUTO) 4.9 % (1.7-9.3); NEUTROPHILS # (AUTO) 8.3 K/uL (1.8-7.7); NEUTROPHILS % (AUTO) 83.7 % (40.0-70.0); PLATELET COUNT (AUTO) 671 K/uL (130-430); RED BLOOD CELL COUNT(AUTO) 3.68 MIL/uL (4.2-6.2); RED CELL DISTRIBUTION WIDTH 24.6 % (9.0-15.0)
[2024-03-08 05:26] LABS: CALCIUM 9.5 mg/dL (8.4-11.0); CREATININE 1.23 mg/dL (0.55-1.30); POTASSIUM 3.7 mmol/L (3.5-5.1)
[2024-03-08 08:43] VITALS: BP_SYST 135; PULSE 91; RESP 18; TEMP 97.4
[2024-03-08 09:54] VITALS: BP_SYST 135; PULSE 91; O2SAT 94
[2024-03-08 10:00] VITALS: O2SAT 98
[2024-03-08 11:40] VITALS: BP_SYST 131; PULSE 85; RESP 14; TEMP 97.6; O2SAT 95
[2024-03-08 16:40] VITALS: BP_SYST 130; PULSE 122; RESP 18; TEMP 97.9; O2SAT 95
[2024-03-08 20:00] VITALS: O2SAT 98
[2024-03-08] MEDS: PIPERACILLIN/TAZO 4.5 GM in D5W 100 ML IV SCH (21:48)
[2024-03-09 01:36] VITALS: BP_SYST 102; PULSE 121; RESP 16; TEMP 98.3; O2SAT 95
[2024-03-09 04:36] LABS: BASOPHILS % (AUTO) 0.2 % (0.0-2.0); HEMATOCRIT 23.5 % (36-54); HEMOGLOBIN 7.4 g/dL (14.0-18.0); LYMPHOCYTES % (AUTO) 4.9 % (20.5-51.5); MEAN CORPUSCULAR HEMOGLOBIN 27 pg (27-31); MEAN CORPUSCULAR HGB CONC 32 % (32-36); MEAN CORPUSCULAR VOLUME 86 fL (79.0-98.0); MONOCYTES # (AUTO) 1.4 K/uL (0.0-1.0); MONOCYTES % (AUTO) 6.7 % (1.7-9.3); NEUTROPHILS # (AUTO) 17.8 K/uL (1.8-7.7); NEUTROPHILS % (AUTO) 88.2 % (40.0-70.0); PLATELET COUNT (AUTO) 647 K/uL (130-430); RED BLOOD CELL COUNT(AUTO) 2.74 MIL/uL (4.2-6.2); RED CELL DISTRIBUTION WIDTH 25.4 % (9.0-15.0); WHITE BLOOD COUNT (AUTO) 20.2 K/uL (4.8-10.8)
[2024-03-09 05:07] LABS: CALCIUM 9.1 mg/dL (8.4-11.0); CREATININE 1.57 mg/dL (0.55-1.30); POTASSIUM 4.6 mmol/L (3.5-5.1)
[2024-03-09 08:00] VITALS: BP_SYST 120; PULSE 127; RESP 16; TEMP 98.3; O2SAT 96
[2024-03-09] MEDS: PANTOPRAZOLE SODIUM 40 MG/VIAL (PROTONIX) IVP ONE (11:50)
[2024-03-09 12:48] VITALS: BP_SYST 112; PULSE 105; RESP 17; TEMP 98; O2SAT 98
[2024-03-09] MEDS: SUCRALFATE 1 GM/10 ML UDC GT SCH (13:00)
[2024-03-09 14:34] LABS: MEAN CORPUSCULAR HEMOGLOBIN 28 pg (27-31); MEAN CORPUSCULAR HGB CONC 32 % (32-36); MEAN CORPUSCULAR VOLUME 87 fL (79.0-98.0); PLATELET COUNT (AUTO) 517 K/uL (130-430); RED BLOOD CELL COUNT(AUTO) 2.02 MIL/uL (4.2-6.2); WHITE BLOOD COUNT (AUTO) 19.5 K/uL (4.8-10.8)
[2024-03-09 14:41] LABS: HEMOGLOBIN 5.6 g/dL (14.0-18.0)
[2024-03-09 14:42] LABS: HEMATOCRIT 17.6 % (36-54)
[2024-03-09 15:30] LABS: BASOPHILS % (MANUAL) 0 % (0-2); EOSINOPHILS % (MANUAL) 0 % (0-7); LYMPHOCYTES % (MANUAL) 9 % (20-46); MONOCYTES % (MANUAL) 7 % (0-11); PLATELET ESTIMATE INCREASED (ADEQUATE)
[2024-03-09 15:31] LABS: HYPOCHROMASIA SLIGHT; OVALOCYTES FEW
[2024-03-09 15:32] LABS: ANISOCYTOSIS 2+
[2024-03-09 16:00] VITALS: BP_SYST 117; PULSE 117; RESP 17; TEMP 98.2; O2SAT 97
[2024-03-09] MEDS: FLUCONAZOLE 200 mg/ NS 100 ML IV SCH (18:13)
[2024-03-09 20:00] VITALS: BP_SYST 103; PULSE 102; RESP 16; TEMP 98.9; O2SAT 97
[2024-03-09] MEDS: PANTOPRAZOLE SODIUM 40 MG/VIAL (PROTONIX) IVP SCH (21:23)
[2024-03-09 23:18] LABS: INR 1.1 (0.80-1.20); PROTHROMBIN TIME 10.9 SECS (9.5-12.5)
[2024-03-10 01:20] VITALS: BP_SYST 103; PULSE 93; RESP 17; TEMP 97.6; O2SAT 97
[2024-03-10] MEDS: ACETAMINOPHEN 325 MG TABLET PO PRN (02:23)
[2024-03-10 08:24] VITALS: BP_SYST 102; PULSE 73; RESP 16; TEMP 97.5
[2024-03-10 10:30] VITALS: O2SAT 98
[2024-03-10 11:18] VITALS: BP_SYST 101; PULSE 73; RESP 18; TEMP 96.5; O2SAT 99
[2024-03-10 15:54] VITALS: BP_SYST 106; PULSE 78; RESP 16; TEMP 97.5; O2SAT 98
[2024-03-10 19:28] LABS: BASOPHILS # (AUTO) 0.1 K/uL (0.0-0.2); BASOPHILS % (AUTO) 0.8 % (0.0-2.0); EOSINOPHILS # (AUTO) 0.1 K/uL (0.0-0.4); EOSINOPHILS % (AUTO) 0.9 % (0.0-4.0); HEMATOCRIT 24.9 % (36-54); HEMOGLOBIN 8.3 g/dL (14.0-18.0); LYMPHOCYTES # (AUTO) 1.5 K/uL (1.0-5.5); LYMPHOCYTES % (AUTO) 12.8 % (20.5-51.5); MEAN CORPUSCULAR HEMOGLOBIN 29 pg (27-31); MEAN CORPUSCULAR HGB CONC 34 % (32-36); MEAN CORPUSCULAR VOLUME 86 fL (79.0-98.0); MONOCYTES # (AUTO) 0.4 K/uL (0.0-1.0); MONOCYTES % (AUTO) 3.7 % (1.7-9.3); NEUTROPHILS # (AUTO) 9.3 K/uL (1.8-7.7); NEUTROPHILS % (AUTO) 81.8 % (40.0-70.0); PLATELET COUNT (AUTO) 335 K/uL (130-430); RED BLOOD CELL COUNT(AUTO) 2.89 MIL/uL (4.2-6.2); RED CELL DISTRIBUTION WIDTH 18.9 % (9.0-15.0); WHITE BLOOD COUNT (AUTO) 11.4 K/uL (4.8-10.8)
[2024-03-10 19:34] LABS: CALCIUM 8.4 mg/dL (8.4-11.0); CREATININE 1.23 mg/dL (0.55-1.30); POTASSIUM 3.9 mmol/L (3.5-5.1)
[2024-03-10 20:00] VITALS: BP_SYST 103; PULSE 78; RESP 18; TEMP 98; O2SAT 97
[2024-03-11] VITALS (8 sets, daily range): BP systolic 94–135; PULSE 71–84; RESP 16–20; TEMP 97.5–98.6; O2SAT 95–100
[2024-03-11 05:51] LABS: CALCIUM 8.3 mg/dL (8.4-11.0); CREATININE 1.17 mg/dL (0.55-1.30); POTASSIUM 4.3 mmol/L (3.5-5.1)
[2024-03-11 07:51] LABS: BASOPHILS # (AUTO) 0.1 K/uL (0.0-0.2); BASOPHILS % (AUTO) 1.1 % (0.0-2.0); EOSINOPHILS # (AUTO) 0.2 K/uL (0.0-0.4); EOSINOPHILS % (AUTO) 1.6 % (0.0-4.0); HEMOGLOBIN 7.2 g/dL (14.0-18.0); LYMPHOCYTES # (AUTO) 1.3 K/uL (1.0-5.5); LYMPHOCYTES % (AUTO) 12.5 % (20.5-51.5); MEAN CORPUSCULAR HEMOGLOBIN 29 pg (27-31); MEAN CORPUSCULAR HGB CONC 33 % (32-36); MEAN CORPUSCULAR VOLUME 88 fL (79.0-98.0); MONOCYTES # (AUTO) 0.4 K/uL (0.0-1.0); MONOCYTES % (AUTO) 4.1 % (1.7-9.3); NEUTROPHILS # (AUTO) 8.7 K/uL (1.8-7.7); NEUTROPHILS % (AUTO) 80.7 % (40.0-70.0); PLATELET COUNT (AUTO) 333 K/uL (130-430); RED BLOOD CELL COUNT(AUTO) 2.48 MIL/uL (4.2-6.2); WHITE BLOOD COUNT (AUTO) 10.7 K/uL (4.8-10.8)
[2024-03-11 08:06] LABS: HEMATOCRIT 21.9 % (36-54)
[2024-03-11] MEDS: ZOLPIDEM TARTRATE 5 MG TABLET PO PRN (22:29)
[2024-03-12] VITALS (7 sets, daily range): BP systolic 105–118; PULSE 65–78; RESP 15–18; TEMP 97.6–98.2; O2SAT 95–98
[2024-03-12 06:15] LABS: BASOPHILS # (AUTO) 0.1 K/uL (0.0-0.2); BASOPHILS % (AUTO) 1.2 % (0.0-2.0); EOSINOPHILS # (AUTO) 0.5 K/uL (0.0-0.4); EOSINOPHILS % (AUTO) 4.7 % (0.0-4.0); HEMATOCRIT 31.6 % (36-54); HEMOGLOBIN 10.4 g/dL (14.0-18.0); LYMPHOCYTES # (AUTO) 1.1 K/uL (1.0-5.5); LYMPHOCYTES % (AUTO) 11.6 % (20.5-51.5); MEAN CORPUSCULAR HEMOGLOBIN 30 pg (27-31); MEAN CORPUSCULAR HGB CONC 33 % (32-36); MEAN CORPUSCULAR VOLUME 91 fL (79.0-98.0); MONOCYTES # (AUTO) 0.6 K/uL (0.0-1.0); MONOCYTES % (AUTO) 6.2 % (1.7-9.3); NEUTROPHILS # (AUTO) 7.5 K/uL (1.8-7.7); NEUTROPHILS % (AUTO) 76.3 % (40.0-70.0); PLATELET COUNT (AUTO) 324 K/uL (130-430); RED BLOOD CELL COUNT(AUTO) 3.49 MIL/uL (4.2-6.2); RED CELL DISTRIBUTION WIDTH 17.8 % (9.0-15.0); WHITE BLOOD COUNT (AUTO) 9.8 K/uL (4.8-10.8)
[2024-03-12 06:29] LABS: CALCIUM 8.8 mg/dL (8.4-11.0); CREATININE 1.04 mg/dL (0.55-1.30); POTASSIUM 4.4 mmol/L (3.5-5.1)
[2024-03-13] VITALS: BP_SYST 110; PULSE 75; RESP 16; TEMP 98.2; O2SAT 99
[2024-03-13 08:00] VITALS: BP_SYST 110; PULSE 80; RESP 18; TEMP 98.1; O2SAT 99
[2024-03-13 08:17] LABS: CALCIUM 8.5 mg/dL (8.4-11.0); CREATININE 1.18 mg/dL (0.55-1.30); POTASSIUM 4.3 mmol/L (3.5-5.1)
[2024-03-13 08:18] LABS: BASOPHILS # (AUTO) 0.1 K/uL (0.0-0.2); EOSINOPHILS # (AUTO) 0.3 K/uL (0.0-0.4); EOSINOPHILS % (AUTO) 3.2 % (0.0-4.0); HEMATOCRIT 31.4 % (36-54); HEMOGLOBIN 10.2 g/dL (14.0-18.0); LYMPHOCYTES # (AUTO) 0.9 K/uL (1.0-5.5); LYMPHOCYTES % (AUTO) 10.6 % (20.5-51.5); MEAN CORPUSCULAR HEMOGLOBIN 30 pg (27-31); MEAN CORPUSCULAR HGB CONC 33 % (32-36); MEAN CORPUSCULAR VOLUME 92 fL (79.0-98.0); MONOCYTES # (AUTO) 0.5 K/uL (0.0-1.0); MONOCYTES % (AUTO) 5.9 % (1.7-9.3); NEUTROPHILS % (AUTO) 79.3 % (40.0-70.0); PLATELET COUNT (AUTO) 344 K/uL (130-430); RED CELL DISTRIBUTION WIDTH 18.9 % (9.0-15.0); WHITE BLOOD COUNT (AUTO) 8.8 K/uL (4.8-10.8)
[2024-03-13 08:30] VITALS: O2SAT 99
[2024-03-13 11:03] VITALS: BP_SYST 128; PULSE 89; RESP 16; TEMP 97.7; O2SAT 96
[2024-03-13 11:05] VITALS: BP_SYST 104; PULSE 75; RESP 16; TEMP 97.7; O2SAT 96
[2024-03-13] MEDS ORDERED: PIPE4.5F2 IV ×2 (11:40→13:05)
[2024-03-13 12:18] VITALS: BP_SYST 104; PULSE 75; RESP 16; TEMP 97.7; O2SAT 96
== END 2024-03-13 13:23 | DRG 698 ==
LOC: SED 13:30 → SMU 19:57
PROVIDERS: ADMIT General Practice; ATTEND General Practice
PROC: 30233N1 Transfusion of Nonautologous Red Blood Cells into Peripheral Vein, Percutaneous Approach (ICD-10-PCS; principal; 2024-03-09)
DX: T83.098A Other mechanical complication of other urinary catheter, initial encounter (principal); J69.0 Pneumonitis due to inhalation of food and vomit; L89.154 Pressure ulcer of sacral region, stage 4; R53.2 Functional quadriplegia; Z16.24 Resistance to multiple antibiotics; J44.0 Chronic obstructive pulmonary disease with (acute) lower respiratory infection; N39.0 Urinary tract infection, site not specified; K21.9 Gastro-esophageal reflux disease without esophagitis; E87.6 Hypokalemia; E86.0 Dehydration; B96.20 Unspecified Escherichia coli [E. coli] as the cause of diseases classified elsewhere; N31.9 Neuromuscular dysfunction of bladder, unspecified; B96.7 Clostridium perfringens [C. perfringens] as the cause of diseases classified elsewhere; G89.29 Other chronic pain; G80.9 Cerebral palsy, unspecified; Z79.899 Other long term (current) drug therapy; Y83.8 Other surgical procedures as the cause of abnormal reaction of the patient, or of later complication, without mention of misadventure at the time of the procedure; Z88.8 Allergy status to other drugs, medicaments and biological substances; Z87.440 Personal history of urinary (tract) infections; Z86.19 Personal history of other infectious and parasitic diseases; Z74.01 Bed confinement status; M48.00 Spinal stenosis, site unspecified
CPT/HCPCS: 36415; 71045; 74018; 76770; 80048; 81000; 81001; 81015; 83037; 83735; 83880; 84484; 85007; 85025; 85027; 85610; 85730; 86886; 86900; 86901; 86920; 87040; 87081; 87086; 87186; 92610-GN; 93005; 94760; 96365; 96375; 99285; C9113; J0696; J1335; J1450; J1644; J2270; J2405; J2470; J2543; J3480; J7060; P9021

== ENCOUNTER 2024-04-13 23:12 | Inpatient (IN) | payer OTHER, MEDICAID ==
[~2024-04-13] VITALS: Ht 162.6 cm; Wt 44.5 kg
[~2024-04-13 23:12] MED LIST changes: +PIPE4.5F2 IV
[2024-04-13 23:15] VITALS: BP_SYST 123; PULSE 96; RESP 20; TEMP 98.7; O2SAT 97
[2024-04-14] MEDS: NACL 0.9% 1,000 ML IV ONE ×2 (00:36→05:01)
[2024-04-14] MEDS: MORPHINE 4 MG INJ. 4 MG/ML VIAL IVP ONE (00:37)
[2024-04-14] MEDS: PANTOPRAZOLE SODIUM 40 MG/VIAL (PROTONIX) IVP ONE (00:42)
[2024-04-14] MEDS ORDERED: MORPHINE 2 MG/ML INJ. SYRINGE IVP PRN (04:15)
[2024-04-14] MEDS ORDERED: [UNRECOGNIZED DRUG - CODE] PO (04:26)
[2024-04-14] MEDS ORDERED: [UNRECOGNIZED DRUG - CODE] PO (04:26)
[2024-04-14] MEDS ORDERED: MORP15TA PO (04:26)
[2024-04-14] MEDS ORDERED: IPRA3AMP9 INH (04:26)
[2024-04-14] MEDS ORDERED: SUCR1TAB PO (04:26)
[2024-04-14 07:12] LABS: ANION GAP 7 (5-15); CALCIUM 8.7 mg/dL (8.4-11.0); CARBON DIOXIDE 32 mmol/L (23-29); CHLORIDE 102 mmol/L (98-107); CREATININE 1.41 mg/dL (0.55-1.30); GFR AFRICAN AMERICAN 66 mL/min (>90); GFR NON AFRICAN-AMERICAN 55 mL/min (>90); GLUCOSE 123 mg/dL (74-106); SODIUM SERUM 141 mmol/L (136-145); UREA NITROGEN, BLOOD 47 mg/dL (8-21)
[2024-04-14 07:13] LABS: ALANINE AMINOTRANSFERASE 18 U/L (12-78); ALBUMIN 2.6 g/dL (3.4-4.8); ASPARTATE AMINOTRANSFERASE 14 U/L (10-37); LIPASE 429 U/L (16-77); TOTAL BILIRUBIN 0.2 mg/dL (0.0-1.0)
[2024-04-14 07:14] LABS: HEMATOCRIT 31.6 % (36-54); HEMOGLOBIN 10.3 g/dL (14.0-18.0); MEAN CORPUSCULAR HEMOGLOBIN 28 pg (27-31); MEAN CORPUSCULAR HGB CONC 33 % (32-36); MEAN CORPUSCULAR VOLUME 86 fL (79.0-98.0); RED BLOOD CELL COUNT(AUTO) 3.65 MIL/uL (4.2-6.2); WHITE BLOOD COUNT (AUTO) 11.2 K/uL (4.8-10.8)
[2024-04-14 07:15] LABS: BASOPHILS # (AUTO) 0.1 K/uL (0.0-0.2); BASOPHILS % (AUTO) 1.1 % (0.0-2.0); EOSINOPHILS # (AUTO) 0.2 K/uL (0.0-0.4); LYMPHOCYTES % (AUTO) 9.4 % (20.5-51.5); MONOCYTES # (AUTO) 0.7 K/uL (0.0-1.0); MONOCYTES % (AUTO) 6.4 % (1.7-9.3); NEUTROPHILS # (AUTO) 9.1 K/uL (1.8-7.7); NEUTROPHILS % (AUTO) 81.1 % (40.0-70.0); PLATELET COUNT (AUTO) 607 K/uL (130-430); RED CELL DISTRIBUTION WIDTH 18.2 % (9.0-15.0)
[2024-04-14] MEDS ORDERED: ACETAMINOPHEN 325 MG TABLET PO PRN ×2 (07:15→07:45)
[2024-04-14] MEDS ORDERED: IPRATROPIUM/ALBUTEROL SULFATE 3 ML AMPUL.NEB (DUONEB) INH PRN (07:15)
[2024-04-14] MEDS ORDERED: LORazepam 2 MG/ML VIAL IVP PRN (07:15)
[2024-04-14 07:20] VITALS: PULSE 79; O2SAT 92
[2024-04-14 09:04] LABS: BASOPHILS # (AUTO) 0.1 K/uL (0.0-0.2); BASOPHILS % (AUTO) 1.2 % (0.0-2.0); EOSINOPHILS # (AUTO) 0.3 K/uL (0.0-0.4); EOSINOPHILS % (AUTO) 4.7 % (0.0-4.0); HEMATOCRIT 29.6 % (36-54); HEMOGLOBIN 9.5 g/dL (14.0-18.0); LYMPHOCYTES # (AUTO) 1.1 K/uL (1.0-5.5); LYMPHOCYTES % (AUTO) 15.4 % (20.5-51.5); MEAN CORPUSCULAR HEMOGLOBIN 28 pg (27-31); MEAN CORPUSCULAR HGB CONC 32 % (32-36); MEAN CORPUSCULAR VOLUME 88 fL (79.0-98.0); MONOCYTES # (AUTO) 0.5 K/uL (0.0-1.0); MONOCYTES % (AUTO) 7.8 % (1.7-9.3); NEUTROPHILS % (AUTO) 70.9 % (40.0-70.0); PLATELET COUNT (AUTO) 501 K/uL (130-430); RED BLOOD CELL COUNT(AUTO) 3.36 MIL/uL (4.2-6.2); RED CELL DISTRIBUTION WIDTH 18.9 % (9.0-15.0)
[2024-04-14] MEDS: LR 1,000 ML IV SCH (09:15)
[2024-04-14 09:21] LABS: CALCIUM 8.5 mg/dL (8.4-11.0); CREATININE 1.18 mg/dL (0.55-1.30); POTASSIUM 3.8 mmol/L (3.5-5.1)
[2024-04-14 09:33] LABS: CHOLESTEROL 125 mg/dL (<200); HDL CHOLESTEROL 32 mg/dL (>45); TRIGLYCERIDES 120 mg/dL (30-150)
[2024-04-14] MEDS: PANTOPRAZOLE SODIUM 40 MG/VIAL (PROTONIX) IVP SCH (09:39)
[2024-04-14 10:42] VITALS: BP_SYST 121; PULSE 90; RESP 16; TEMP 97.1
[2024-04-14 10:45] VITALS: BP_SYST 123; PULSE 89; RESP 16; TEMP 97.6; O2SAT 95
[2024-04-14 11:43] VITALS: O2SAT 95
[2024-04-14 16:32] VITALS: BP_SYST 125; PULSE 88; RESP 16; TEMP 97.8; O2SAT 96
[2024-04-14] MEDS: MORPHINE 2 MG/ML INJ. SYRINGE IVP PRN (17:59)
[2024-04-14 20:00] VITALS: BP_SYST 115; PULSE 86; RESP 17; TEMP 97.5; O2SAT 96
[2024-04-14] MEDS: SENNOSIDES 8.6 MG TABLET PO SCH (21:16)
[2024-04-14] MEDS: DOCUSATE SODIUM 100 MG CAPSULE PO SCH (21:16)
[2024-04-15] VITALS: BP_SYST 117; PULSE 72; RESP 16; TEMP 97.7; O2SAT 95
[2024-04-15 06:01] LABS: BASOPHILS # (AUTO) 0.1 K/uL (0.0-0.2); BASOPHILS % (AUTO) 0.8 % (0.0-2.0); EOSINOPHILS # (AUTO) 0.5 K/uL (0.0-0.4); EOSINOPHILS % (AUTO) 5.7 % (0.0-4.0); HEMATOCRIT 26.8 % (36-54); HEMOGLOBIN 8.6 g/dL (14.0-18.0); LYMPHOCYTES # (AUTO) 0.9 K/uL (1.0-5.5); LYMPHOCYTES % (AUTO) 10.4 % (20.5-51.5); MEAN CORPUSCULAR HEMOGLOBIN 29 pg (27-31); MEAN CORPUSCULAR HGB CONC 32 % (32-36); MEAN CORPUSCULAR VOLUME 90 fL (79.0-98.0); MONOCYTES # (AUTO) 0.6 K/uL (0.0-1.0); MONOCYTES % (AUTO) 7.3 % (1.7-9.3); NEUTROPHILS # (AUTO) 6.5 K/uL (1.8-7.7); NEUTROPHILS % (AUTO) 75.8 % (40.0-70.0); PLATELET COUNT (AUTO) 445 K/uL (130-430); RED CELL DISTRIBUTION WIDTH 18.7 % (9.0-15.0); WHITE BLOOD COUNT (AUTO) 8.6 K/uL (4.8-10.8)
[2024-04-15 07:37] VITALS: BP_SYST 114; PULSE 88; RESP 18; TEMP 98.5; O2SAT 94
[2024-04-15 07:39] LABS: ALBUMIN 2.2 g/dL (3.4-4.8); CALCIUM 8.4 mg/dL (8.4-11.0); CREATININE 1.16 mg/dL (0.55-1.30); POTASSIUM 3.8 mmol/L (3.5-5.1); TOTAL BILIRUBIN 0.3 mg/dL (0.0-1.0); TOTAL PROTEIN, SERUM 6.7 g/dL (6.4-8.3)
[2024-04-15] MEDS: ONDANSETRON HCL 4 MG/2 ML VIAL IVP PRN (08:35)
[2024-04-15] MEDS: BALSAM PERU/CASTOR OIL 56.7 GM OINT...G. TP SCH (08:54)
[2024-04-15] MEDS: MENTHOL/ZINC OXIDE 113 GM OINT. TP SCH (08:55)
[2024-04-15 12:21] VITALS: BP_SYST 105; PULSE 86; RESP 16; TEMP 97.6; O2SAT 90
[2024-04-15] MEDS: METOCLOPRAMIDE HCL 10 MG TABLET PO PRN (12:42)
[2024-04-15 16:27] VITALS: BP_SYST 102; PULSE 77; RESP 17; TEMP 97.8; O2SAT 92
[2024-04-15 20:04] VITALS: O2SAT 99
[2024-04-16 01:18] VITALS: BP_SYST 121; PULSE 74; RESP 17; TEMP 98.6; O2SAT 98
[2024-04-16 07:35] VITALS: BP_SYST 124; PULSE 66; RESP 13; TEMP 97.8; O2SAT 99
[2024-04-16 09:33] LABS: BASOPHILS # (AUTO) 0.1 K/uL (0.0-0.2); BASOPHILS % (AUTO) 0.9 % (0.0-2.0); EOSINOPHILS # (AUTO) 0.5 K/uL (0.0-0.4); EOSINOPHILS % (AUTO) 6.7 % (0.0-4.0); HEMATOCRIT 30.4 % (36-54); HEMOGLOBIN 9.6 g/dL (14.0-18.0); LYMPHOCYTES # (AUTO) 0.7 K/uL (1.0-5.5); LYMPHOCYTES % (AUTO) 10.2 % (20.5-51.5); MEAN CORPUSCULAR HEMOGLOBIN 28 pg (27-31); MEAN CORPUSCULAR HGB CONC 32 % (32-36); MEAN CORPUSCULAR VOLUME 89 fL (79.0-98.0); MONOCYTES # (AUTO) 0.3 K/uL (0.0-1.0); MONOCYTES % (AUTO) 4.5 % (1.7-9.3); NEUTROPHILS # (AUTO) 5.4 K/uL (1.8-7.7); NEUTROPHILS % (AUTO) 77.7 % (40.0-70.0); PLATELET COUNT (AUTO) 499 K/uL (130-430); RED CELL DISTRIBUTION WIDTH 18.1 % (9.0-15.0); WHITE BLOOD COUNT (AUTO) 6.9 K/uL (4.8-10.8)
[2024-04-16 09:42] LABS: ALBUMIN 2.3 g/dL (3.4-4.8); CALCIUM 8.5 mg/dL (8.4-11.0); CREATININE 1.1 mg/dL (0.55-1.30); POTASSIUM 3.4 mmol/L (3.5-5.1); TOTAL BILIRUBIN 0.2 mg/dL (0.0-1.0)
[2024-04-16 11:17] VITALS: BP_SYST 105; PULSE 77; RESP 17; TEMP 97.9; O2SAT 94
[2024-04-16] MEDS: POLYETHYLENE GLYCOL 3350, 17 GM/ POWD.PACK PO ONE (12:15)
[2024-04-16] MEDS: SODIUM PHOSPHATE,MONO-DIBASIC 133 ML ENEMA RC ONE (14:49)
[2024-04-16 16:05] VITALS: BP_SYST 103; PULSE 79; RESP 16; TEMP 97.8; O2SAT 94
[2024-04-16 20:00] VITALS: BP_SYST 132; PULSE 86; RESP 18; TEMP 97.6; O2SAT 96
[2024-04-17 00:19] VITALS: BP_SYST 133; PULSE 93; RESP 14; TEMP 98.5; O2SAT 100
[2024-04-17 05:57] LABS: BASOPHILS % (AUTO) 0.2 % (0.0-2.0); EOSINOPHILS # (AUTO) 0.1 K/uL (0.0-0.4); EOSINOPHILS % (AUTO) 0.9 % (0.0-4.0); HEMATOCRIT 31.5 % (36-54); LYMPHOCYTES # (AUTO) 0.4 K/uL (1.0-5.5); LYMPHOCYTES % (AUTO) 3.6 % (20.5-51.5); MEAN CORPUSCULAR HEMOGLOBIN 28 pg (27-31); MEAN CORPUSCULAR HGB CONC 32 % (32-36); MEAN CORPUSCULAR VOLUME 89 fL (79.0-98.0); MONOCYTES # (AUTO) 0.3 K/uL (0.0-1.0); NEUTROPHILS # (AUTO) 9.1 K/uL (1.8-7.7); NEUTROPHILS % (AUTO) 92.3 % (40.0-70.0); PLATELET COUNT (AUTO) 421 K/uL (130-430); RED BLOOD CELL COUNT(AUTO) 3.53 MIL/uL (4.2-6.2); RED CELL DISTRIBUTION WIDTH 18.7 % (9.0-15.0); WHITE BLOOD COUNT (AUTO) 9.8 K/uL (4.8-10.8)
[2024-04-17 06:12] LABS: ALBUMIN 2.5 g/dL (3.4-4.8); CALCIUM 8.5 mg/dL (8.4-11.0); CREATININE 1.36 mg/dL (0.55-1.30); POTASSIUM 3.9 mmol/L (3.5-5.1); TOTAL BILIRUBIN 0.2 mg/dL (0.0-1.0); TOTAL PROTEIN, SERUM 7.6 g/dL (6.4-8.3)
[2024-04-17 08:01] VITALS: BP_SYST 123; PULSE 78; RESP 17; TEMP 97.6; O2SAT 99
[2024-04-17 08:23] VITALS: BP_SYST 133; PULSE 93; O2SAT 100
[2024-04-17] MEDS: POLYETHYLENE GLYCOL 3350, 17 GM/ POWD.PACK PO SCH (09:08)
[2024-04-17] MEDS: HYDROcodone/ACETAMIN 5-325 MG TAB (NORCO/ VICODIN) PO PRN (09:08)
[2024-04-17 11:05] VITALS: BP_SYST 97; PULSE 90; RESP 16; TEMP 98.1; O2SAT 98
[2024-04-17 13:48] VITALS: BP_SYST 125; PULSE 77; RESP 18; TEMP 98.1; O2SAT 99
== END 2024-04-17 14:15 | DRG 380 ==
LOC: SED 23:12 → SMU 04-14 04:07
PROVIDERS: ADMIT Internal Medicine; ATTEND Internal Medicine
DX: K22.70 Barrett's esophagus without dysplasia (principal); L89.154 Pressure ulcer of sacral region, stage 4; R53.2 Functional quadriplegia; N17.9 Acute kidney failure, unspecified; N13.2 Hydronephrosis with renal and ureteral calculous obstruction; D64.9 Anemia, unspecified; T83.028A Displacement of other urinary catheter, initial encounter; K21.9 Gastro-esophageal reflux disease without esophagitis; J44.9 Chronic obstructive pulmonary disease, unspecified; G80.9 Cerebral palsy, unspecified; N31.9 Neuromuscular dysfunction of bladder, unspecified; N18.9 Chronic kidney disease, unspecified; Y83.8 Other surgical procedures as the cause of abnormal reaction of the patient, or of later complication, without mention of misadventure at the time of the procedure; Z88.8 Allergy status to other drugs, medicaments and biological substances; Z87.19 Personal history of other diseases of the digestive system; Z79.899 Other long term (current) drug therapy
CPT/HCPCS: 36415; 76700; 80048; 80053; 80061; 80076; 83690; 85025; 87081; 94070; 96374; 99285; J2270; J2405; J2470; J8597